=== PATIENT | male | born 1950 | race Caucasian/White ===

== ENCOUNTER 2021-09-23 14:55 | Inpatient (IN) | payer MEDICARE, OTHER ==
[~2021-09-23] VITALS: Ht 188 cm; Wt 95.8 kg
[~2021-09-23 14:55] MED LIST: ACET325T38 PO; ALPRAZolam 0.25 MG (XANAX) TAB PO PRN; ATOR20TA66 PO; BISACODYL 10 MG SUPP (DULCOLAX) PR PRN; CALCIUM CARBONATE 500 MG (TUMS) TAB.CHEW PO PRN; CLOP75TA28 PO; DOCUSATE SODIUM 100 MG (COLACE) CAP PO PRN; DOXY100T2 PO; ENOX40DI8 SQ; FLEET ENEMA ADULT 1 EA BTL PR PRN; FLUT9.9S NSEACH; HYDR-3729 PO; LACTULOSE SYRUP 10GM/15ML (ENULOSE) 30ML UDC PO PRN; LOPERAMIDE 2 MG (IMODIUM) TABLET PO PRN; LOSA1TAB20 PO; METO-333 PO; NF-NACL1GT PO; OMEG10006 PO; ONDANSETRON 4 MG (ZOFRAN) ORAL DISSOLVE TAB PO PRN; PANT40TA52 PO; PRIM50TA33 PO; UREA15PO PO; VICODIN 5-325 MG TAB PO; diphenhydrAMINE 25 MG TAB (BENADRYL) PO PRN; guaiFENesin/CODEINE (ROBITUSSIN AC) 10ML UDC PO PRN
--- NOTE | 2021-09-23 14:58 | Progress Note ---
AUTUMN THOMSON 09/23/21 1458: Progress Note Subjective CC: Acute encephalopathy due to viral meningitis HPI: Juan Sullivan is a 71 yo male with a history of CAD s/p stent, alcohol use disorder, HTN, essential tremor, chronic low back pain s/p lumbar fusion, who presents to inpatient rehabilitation for evaluation and management of debility secondary to acute viral encephalopathy. He has a recent history of staph bacteremia on the RLE, and was admitted to [facility] in [place]. He had tested positive for staph 2-3 weeks prior to admission on 09/01/21, with plans to treat with vancomycin and rifampin until ; he was subsequently discharged to a swing bed. However, within the week, he was readmitted due to progressive confusion. CT A/P revealed a 12 cm fluid collection in the lumbar spine concerning for abscess. Lumbar puncture on 09/08 demonstrated results consistent with viral meningitis. On 09/09/21, he was admitted to [facility] for altered mental status; CSF analysis was able to isolate West Nile Virus IgG and [place] Spotted fever IgG (serum was negative for WN virus). Neurological work- up demonstrated persistent maximo-lingual dyskinesias, choreiform movements, aphasia, and flexed posturing. Juan was started on doxycycline and rocephin. As well, there were concerns for alcohol withdrawal, as patient is stated to drink "5 shots of whiskey per week" and he had not consumed alcohol in over a week. In addition, Juan has had persistent hyponatremia (127 on 09/09/21) , which, given his present illness, is suspicious for SIADH. He was started on fluid restriction of 1.2 L/day. Today, Juan is alert and oriented to person and place; he demonstrates a pleasant affect and is cooperative. He denies any pain aside from in his feet. He had a bowel movement this morning, and states his appetite has been "horrible."His plans to visit him tomorrow (09/24/21). PMH: CAD HTN Alcohol use disorder Essential tremor Hyponatremia Chronic low back pain PSH: CABG with stent (2020) Lumbar spinal fusion (2017) Ganglioma removal (2016) ALL: NKDA MEDS: Home Meds Active Reported Ure-Na (Urea) 15 Gm Powd.pack 15 Gm PO DAILY Sodium Chloride 1 Gm Tab 2 Gm PO BID TAKES 2 (1GM) TABS Mysoline (Primidone) 50 Mg Tablet 50 Mg PO QID Pantoprazole Sodium 40 Mg Tablet.dr 40 Mg PO DAILY [facility]-3 Fish Oil 1,000 mg Sftg ([facility]-3/Dha/Epa/Fish Oil) 1 Each Capsule 1 Each PO BID Metoprolol Tartrate 25 Mg Tablet 25 Mg PO BID Flonase Allergy Relief (Fluticasone Propionate) 9.9 Ml [place].susp 1 [place] NSEACH DAILY Enoxaparin Sodium 40 Mg/0.4 Ml Syringe 40 Mg SQ DAILY Doxycycline Hyclate 100 Mg Tablet 100 Mg PO BID WITH MEALS COMPLETION DATE 10-03-2021 PER DISCHARGE ORDERS Clopidogrel (Clopidogrel Bisulfate) 75 Mg Tablet 75 Mg PO DAILY Atorvastatin Calcium 20 Mg Tablet 20 Mg PO DAILY Tylenol (Acetaminophen) 325 Mg Tablet 650 Mg PO Q6H PRN SH: Juan is , and 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 Has two children, Seth and Eun. ROS: Constitutional: Denies any fever, chills, or headache Cardiovascular: Denies any chest pain or palpitations Respiratory: Denies SOB Gastrointestinal: Denies N/V Skin: Multiple areas of mild to moderate skin irritation Objective: Vitals: Pending Labs: Pending PE: General: A&Ox2, cooperative, conversational, and pleasant. NAD. Neurological: Has some episodes of confusion. Intermittent episodes of aphasia--Juan appears to be frustrated when he can't find his words right away. Persistent abnormal mouth movement and tongue movement. Mild intermittent chorea noted during exam in bilateral upper and lower extremities, head, and neck, especially during moments of aphasia. Has flexed posturing of bilateral UE. Juan is unable to recall the exact details of his disposition, but is able to remember some details with prompting. Cardiovascular: Regular rate and rhythm, no murmurs rubs or gallops. Capillary refill is < 3 seconds. Respiratory: CTAB, no rales or rhonchi noted Gastrointestinal: Abdomen is soft, no rebound or guarding MSK: Bilateral upper extremity is held in a flexed posture, though will move freely with passive movement. No edema is present in the LE. Skin: Mild skin irritation on chest where telemetry was placed. Hands are d ry, with moderate skin peeling on the lee surface. There is some scrotal irritation, appears erythematous and dry. I did not note any significant LE rashes or ulcerations, which was discussed in a recent previous hospital stay. Assessment and Plan: 1. Viral encephalitis, with persistent maximo-lingual dyskinesias, choreiform movements, aphasia, and flexor posturing of bilateral UE Continue rocephin and doxycycline Monitor neurological status closely PT/OT/ST to evaluate potential and extent of rehabilitation necessary to attain PLOF within reason 2. Hyponatremia secondary to SIADH Limit fluids Monitor urine output 3. CAD 4. HTN Continue to monitor 5. Essential tremor Patient was previously on Primidone 6. Alcohol use disorder Thiamine supplementation 7. RLE cellulitis Has been improving Continue to monitor SUSAN MITCHELL DO 09/24/21 0521: Supervisory-Addendum Brief Verification & Attestation Participated in pt care: history, MDM, physical Personally performed: exam, history, MDM, supervision of care Care discussed with: Medical Student Procedures: n/a Results interpretation: Verified all documentation Verification and Attestation of Medical Student E/M Service A medical student performed and documented this service in my presence. I reviewed and verified all information documented by the medical student and made modifications to such information, when appropriate. I personally performed the physical exam and medical decision making. Susan Mitchell, Sep 24, 2021,05:21 AUTUMN THOMSON Sep 23, 2021 14:58 SUSAN MITCHELL DO Sep 24, 2021 05:21
--- NOTE | 2021-09-23 15:54 | Physical Therapy Evaluation ---
PT Evaluation-General Medical Diagnosis Admission Date Medical Diagnosis: Acute encephalopathy due to viral meningitis Onset Date: Sep 01, 2021 Therapy Diagnosis Therapy Diagnosis: impaired mobility, strength, endurance, balance Height/Weight Height (Feet): 6 Height (Inches): 2.00 Weight (Pounds): 235 Weight (Ounces): 0.0 Precautions Precautions/Isolations: Fall Prevention, Standard Precautions, Pressure Ulcer Referral Physician: Lois Grande DO Reason for Referral: Evaluation/Treatment Medical History Additional Medical History PMH: CAD HTN Alcohol use disorder Essential tremor Hyponatremia Chronic low back pain PSH: CABG with stent (2020) Lumbar spinal fusion (2017) Ganglioma removal (2016) Reviewed History: Yes Social History Current Living Status: Spouse Entry Into Home: Stairs With Railing PT Steps Into Home: 3 Prior Prior Level of Function SCALE: Activities may be completed with or without assistive devices. 9-Zukbxsddbp-smrmlmy completes the activity by him/herself with no assistance fr om a helper. 5-Set-up or Clean-up Assistance-helper sets up or cleans up; patient completes activity. [place] assists only prior to or following the activity. 4-Supervision or Touching Assistance-helper provides verbal cues and/or touching/steadying and/or contact guard assistance as patient completes activity. Assistance may be provided throughout the activity or intermittently. 3-Partial/Moderate Assistance-helper does LESS THAN HALF the effort. [place] lifts, holds or supports trunk or limbs, but provides less than half the effort. 2-Substantial/Maximal Assistance-helper does MORE THAN HALF the effort. [place] lifts or holds trunk or limbs and provides more than half the effort. 2-Tehddasrd-vduvgc does ALL the effort. Patient does none of the effort to complete the activity. Or, the assistance of 2 or more helpers is required for the patient to complete the activity. If activity was not attempted, code reason: 7-Patient Refused. 9-Not Applicable-not attempted and the patient did not perform the activity before the current illness, exacerbation or injury. 10-Not Attempted due to Environmental Limitations-(lack of equipment, weather restraints, etc.). 88-Not Attempted due to Medical Conditions or Safety Concerns. Bed Mobility: 6 Transfers (B,C,W/C): 6 Gait: 6 Stairs: 6 Indoor Mobility (Ambulation): Independent Stairs: Independent PT Evaluation-Current Subjective Patient in bed pre tx, agrees to PT, has no complaints of pain. Patient has some difficulty communicating and talking sometimes. Pt/Family Goals to be independent at home Objective Patient Orientation: Person, Place, Situation ROM/Strength ROM Lower Extremities WNL Strength Lower Extremities LLE (hip flexion 3-/5, knee flexion 4+/5, knee extension 4+/5, dorsiflexion 4+/5), RLE (hip flexion 3-/5, knee flexion 4+/5, knee extension 4+/5, dorsiflexion 4+/5) Sensory Hearing: Functional Sensation Right Lower Extremit: Intact Sensation Left Lower Extremity: Intact Transfers Roll Left & Right (QC): 3 Sit to Lying (QC): 3 Lying to Sitting/Side of Bed(Q: 3 Sit to Stand (QC): 3 Chair/Epl-qq-Mlapv Xfer(QC): 3 Toilet Transfer (QC): 3 Car Transfer (QC): 3 Patient performs rolling with min assist, supine <-> sit and transfers mod assist, car transfer mod assist. Patient is retropulsive with standing and abnormally extends his back, he has poor balance and coordination, very shaky but no knee buckling. Needs a lot of cues for positioning and safety. Gait Does the Patient Walk?: Yes Mode of Locomotion: Wheelchair Anticipated Mode of Locomotion: Walk Walk 10 feet (QC): 88 Walk 50 ft with 2 Turns(QC): 88 Walk 150 ft (QC): 88 Walking 10ft/uneven surface-QC: 88 Distance: 6'x3 Gait Assistive Device: Parallel Bars Comments/Gait Description Patient can ambulate 6' in the parallel bars with min assist to maintain balance, patient ambulates slowly and has uncoordinated steps, abnormally extends his back and is retropulsive. Wheelchair Training Does the Pt Use a Wheelchair?: Yes Distance: 150' Wheel 50 ft with 2 turns (QC): 3 Wheel 150 ft (QC): 3 Type of Wheelchair: Manual Stairs 1 Step (curb) (QC): 88 4 Steps (QC): 88 12 Steps (QC): 88 Balance Sitting Static: Fair Sitting Dynamic: Fair Standing Static: Poor Standing Dynamic: Poor Picking up an Object (QC): 88 Assessment/Needs Patient has impaired mobility, strength, endurance, balance. Patient in bed post tx with nurse call, phone, tray, all needs met, bed alarm on. Patient has poor safety awareness. He has some abnormal movements and poor coordination. Rehab Potential: Guarded PT Short Term Goals Short Term Goals Time Frame: Sep 30, 2021 Roll Left & Right: 4 Sit to lyin (Balaji) Lying to sitting on side of be: 3 (Balaji) Sit to stand: 3 (Mando) Chair/sgb-bo-xowsz transfer: 3 (Balaji) Walk 10 feet: 3 (mnA) PT Longterm Goals Longterm Goals PT Vice President Of Academic Affairs Goals Time Frame: Oct 14, 2021 Roll Left & Right (QC): 6 Sit to Lying (QC): 4 (SBA) Lying-Sitting on Side/Bed(QC): 4 (SBA) Sit to Stand (QC): 4 (CGA) Chair/May-mc-Bmvrn Xfer(QC): 4 (CGA) Toilet Transfer (QC): 4 (CGA) Car Transfer (QC): 3 (Balaji) Does the Patient Walk: Yes Walk 10 feet (QC): 4 (CGA) Walk 50ft with 2 Turns (QC): 4 (CGA) Walk 150 ft (QC): 4 (CGA) Walking 10ft on Uneven Surface: 3 (Balaji) 1 Step (curb) (QC): 3 (Balaji) 4 Steps (QC): 3 (Balaji) 12 Steps (QC): 88 Picking up an Object (QC): 3 (Balaji) Wheel 50 feet with 2 turns (QC: 6 Wheel 150 feet: 6 PT Plan Problem List Problem List: Activity Tolerance, Functional Strength, Safety, Balance, Gait, Transfer, Bed Mobility, ROM Treatment/Plan Treatment Plan: Continue Plan of Care Treatment Plan: Bed Mobility, Education, Functional Activity Johnathan, Functional Strength, Group Therapy, Gait, Safety, Therapeutic Exercise, Transfers Treatment Duration: Oct 14, 2021 Frequency: At least 5 of 7 days/Wk (IRF) Estimated Hrs Per Day: 1.5 hours per day Patient and/or Family Agrees t: Yes Safety Risks/Education Patient Education: Gait Training, Transfer Techniques, Correct Positioning, W/C Management, Safety Issues Teaching Recipient: Patient Teaching Methods: Demonstration, Discussion Response to Teaching: Reinforcement Needed Discharge Recommendations Plan Patient will perform bed mobility and transfer training, balance and endurance training, functional strengthening, stair training, gait training, and education, to improve functional mobility and independence at home. Therapy Discharge Recommendati: 24 Hour Supervision Time/GCodes Time In: 1455 Time Out: 1535 Total Billed Treatment Time: 40 Total Billed Treatment 1 visit DESTINEE 15' FA 25' SANFORD ALEJANDRE PT Sep 23, 2021 15:54
--- NOTE | 2021-09-23 16:57 | PM&R Post Admission Assessment ---
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 Apparently he has a recent history of staph bacteremia from cellulitis of the right lower extremity and remains on antibiotics for that. At this current time it is hard for him to stay on topic when conversing and confusion is noted. Hyponatremia will be monitored closely. Previously was independent without the use of assistive devices. He will require aggressive treatment with PT OT and speech therapy. H&P from medical student AUTMUN THOMSON CC: Acute encephalopathy due to viral meningitis HPI: Juan Sullivan is a 71 yo male with a history of CAD s/p stent, alcohol use disorder, HTN, essential tremor, chronic low back pain s/p lumbar fusion, who presents to inpatient rehabilitation for evaluation and management of debility secondary to acute viral encephalopathy. He has a recent history of staph bacteremia on the RLE, and was admitted to [facility] in [place]. He had tested positive for staph 2-3 weeks prior to admission on 09/01/21, with plans to treat with vancomycin and rifampin until ; he was subsequently discharged to a swing bed. However, within the week, he was readmitted due to progressive confusion. CT A/P revealed a 12 cm fluid collection in the lumbar spine concerning for abscess. Lumbar puncture on 09/08 demonstrated results consistent with viral meningitis. On 09/09/21, he was admitted to [facility] for altered mental status; CSF analysis was able to isolate West Nile Virus IgG and [place] Spotted fever IgG (serum was negative for WN virus). Neurological work- up demonstrated persistent maximo-lingual dyskinesias, choreiform movements, aphas ia, and flexed posturing. Juan was started on doxycycline and rocephin. As well, there were concerns for alcohol withdrawal, as patient is stated to drink "5 shots of whiskey per week" and he had not consumed alcohol in over a week. In addition, Juan has had persistent hyponatremia (127 on 09/09/21) , which, given his present illness, is suspicious for SIADH. He was started on fluid restriction of 1.2 L/day. Today, Juan is alert and oriented to person and place; he demonstrates a pleasant affect and is cooperative. He denies any pain aside from in his feet. He had a bowel movement this morning, and states his appetite has been "horrible."His plans to visit him tomorrow (09/24/21). PMH: CAD HTN Alcohol use disorder Essential tremor Hyponatremia Chronic low back pain PSH: CABG with stent (2020) Lumbar spinal fusion (2018) Ganglioma removal (2016) ALL: NKDA MEDS: Home Meds Active Reported Ure-Na (Urea) 15 Gm Powd.pack 15 Gm PO DAILY Sodium Chloride 1 Gm Tab 2 Gm PO BID TAKES 2 (1GM) TABS Mysoline (Primidone) 50 Mg Tablet 50 Mg PO QID Pantoprazole Sodium 40 Mg Tablet.dr 40 Mg PO DAILY [place]-3 Fish Oil 1,000 mg Sftg ([place]-3/Dha/Epa/Fish Oil) 1 Each Capsule 1 Each PO BID Metoprolol Tartrate 25 Mg Tablet 25 Mg PO BID Flonase Allergy Relief (Fluticasone Propionate) 9.9 Ml Mooers.susp 1 Mooers NSEACH DAILY Enoxaparin Sodium 40 Mg/0.4 Ml Syringe 40 Mg SQ DAILY Doxycycline Hyclate 100 Mg Tablet 100 Mg PO BID WITH MEALS COMPLETION DATE 10-03-2021 PER DISCHARGE ORDERS Clopidogrel (Clopidogrel Bisulfate) 75 Mg Tablet 75 Mg PO DAILY Atorvastatin Calcium 20 Mg Tablet 20 Mg PO DAILY Tylenol (Acetaminophen) 325 Mg Tablet 650 Mg PO Q6H PRN SH: Juan is , and was working as a 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 Has two children, Seth and Eun. ROS: Constitutional: Denies any fever, chills, or headache Cardiovascular: Denies any chest pain or palpitations Respiratory: Denies SOB Gastrointestinal: Denies N/V Skin: Multiple areas of mild to moderate skin irritation Objective: Vitals: Pending Labs: Pending PE: General: A&Ox2, cooperative, conversational, and pleasant. NAD. Neurological: Has some episodes of confusion. Intermittent episodes of aphasia--Juan appears to be frustrated when he can't find his words right away. Persistent abnormal mouth movement and tongue movement. Mild intermittent chorea noted during exam in bilateral upper and lower extremities, head, and neck, especially during moments of aphasia. Has flexed posturing of bilateral UE. Juan is unable to recall the exact details of his disposition, but is able to remember some details with prompting. Cardiovascular: Regular rate and rhythm, no murmurs rubs or gallops. Capillary refill is < 3 seconds. Respiratory: CTAB, no rales or rhonchi noted Gastrointestinal: Abdomen is soft, no rebound or guarding MSK: Bilateral upper extremity is held in a flexed posture, though will move freely with passive movement. No edema is present in the LE. Skin: Mild skin irritation on chest where telemetry was placed. Hands are dry, with moderate skin peeling on the lee surface. There is some scrotal irritation, appears erythematous and dry. I did not note any significant LE rashes or ulcerations, which was discussed in a recent previous hospital stay. Assessment and Plan: 1. Viral encephalitis, with persistent maximo-lingual dyskinesias, choreiform movements, aphasia, and flexor posturing of bilateral UE Continue rocephin and doxycycline Monitor neurological status closely PT/OT/ST to evaluate potential and extent of rehabilitation necessary to attain PLOF within reason 2. Hyponatremia secondary to SIADH Limit fluids Monitor urine output 3. CAD 4. HTN Continue to monitor 5. Essential tremor Patient was previously on Primidone 6. Alcohol use disorder Thiamine supplementation 7. RLE cellulitis Has been improving Continue to monitor Past Stohbfg-Frrzmi-Nrpknq Hx Past Med/Social Hx: Reviewed Nursing Past Med/Soc Hx, Reviewed and Corrections made Patient Social History Marrital Status: Employed/Student: employed Alcohol Use: Regular Use Alcohol Beverage of Choice: Freshplum Smoking Status: Former Smoker Immunizations Up To Date Date of Influenza Vaccine: Sep 21, 2021 Past Medical History Surgeries: Coronary Stent Cardiac: Coronary Artery Disease, High Cholesterol, Hypertension Reproductive: No Sexually Transmitted Disease: No HIV/AIDS: No Musculoskeletal: Chronic Back Pain Loss of Vision: Denies Hearing Impairment: Denies Adverse Reaction to Blood Boo: No Prior Level of Function Bed Mobility: 6 Transfers: 6 Gait: 6 Stairs: 6 Indoor Mobility (Ambulation): Independent Stairs: Independent Current Level of Fuctioning Roll Left to Right: 3 Sit to Lyin Lying to Sitting/Side of Bed: 3 Sit to Stand: 3 Chair/Ynx-ax-Dfdes Xfer: 3 Car Transfer: 3 Does the Patient Walk: Yes Mode of Locomotion: Wheelchair Anticipated Mode of Locomotion: Walk Walk 10 feet: 88 Walk 50 ft with 2 Turns: 88 Walk 150 ft: 88 Walking 10ft on uneven surface: 88 Gait Assistive Device: Parallel Bars Does the Pt Use a Wheelchair: Yes Wheelchair Distance: 150' Wheel 50 ft with 2 turns: 3 Wheel 150 ft: 3 Type of Wheelchair: Manual 1 Step (curb): 88 4 Steps: 88 12 Steps: 88 Picking up an Object: 88 PM&R Allergy/Meds/Data Review Allergies Coded Allergies: No Known Drug Allergies (Unverified , 06/24/15) Home Medications Scheduled Atorvastatin Calcium (Atorvastatin Calcium), 20 MG PO DAILY, (Reported) Clopidogrel Bisulfate (Clopidogrel), 75 MG PO DAILY, (Reported) Doxycycline Hyclate (Doxycycline Hyclate), 100 MG PO BID WITH MEALS, (Reported) Enoxaparin Sodium (Enoxaparin Sodium), 40 MG SQ DAILY, (Reported) Fluticasone Propionate (Flonase Allergy Relief), 1 SPRAY NSEACH DAILY, (Reported) Metoprolol Tartrate (Metoprolol Tartrate), 25 MG PO BID, (Reported) [place]-3/Dha/Epa/Fish Oil ([place]-3 Fish Oil 1,000 mg Sftg), 1 EACH PO BID, (Reported) Pantoprazole Sodium (Pantoprazole Sodium), 40 MG PO DAILY, (Reported) Primidone (Mysoline), 50 MG PO QID, (Reported) Sodium Chloride (Sodium Chloride), 2 GM PO BID, (Reported) Urea (Ure-Na), 15 GM PO DAILY, (Reported) Scheduled PRN Acetaminophen (Tylenol), 650 MG PO Q6H PRN for PAIN-MILD (1-4), (Reported) Discontinued Medications Hydrocodone/Acetaminophen (Lortab 5-325 mg Tablet), 1-2 EACH PO Q4H Discontinued Reason: No Longer Taking Losartan/Hydrochlorothiazide (Losartan-Hctz 50-12.5 Mg Tab), 1 EACH PO DAILY, (Reported) Discontinued Reason: No Longer Taking Current Medications Current Medications Reviewed Review of Systems Constitutional: see HPI, malaise, weakness EENTM: no symptoms reported Respiratory: no symptoms reported Cardiovascular: no symptoms reported Gastrointestinal: no symptoms reported Genitourinary: no symptoms reported Musculoskeletal: back pain, joint pain Skin: see HPI Psychiatric/Neurological: Anxiety, Depressed, Emotional Problems, Numbness, Weakness, Other (Confusion) Physical Exam Physical Exam Vital Signs Capillary Refill : Height, Weight, BMI Height: 6'2.00" Weight: 235lbs. 0.0oz. 106.356390al; 26.36 BMI Method: General Appearance: No Apparent Distress, WD/WN, Chronically ill Eyes: Bilateral Eye Normal Inspection, Bilateral Eye PERRL HEENT: PERRL/EOMI, Normal ENT Inspection, Pharynx Normal Neck: Full Range of Motion, Normal Inspection, Non Tender, Supple, Carotid Bruit Respiratory: Chest Non Tender, Lungs Clear, Normal Breath Sounds, No Accessory Muscle Use, No Respiratory Distress Cardiovascular: Regular Rate, Rhythm, No Edema, No Gallop, No JVD, No Murmur, Normal Peripheral Pulses Gastrointestinal: Normal Bowel Sounds, No Organomegaly, No Pulsatile Mass, Non Tender, Soft Back: Normal Inspection, No CVA Tenderness, No Vertebral Tenderness Extremity: Normal Capillary Refill, Normal Inspection, Normal Range of Motion, Non Tender, No Calf Tenderness, No Pedal Edema Neurologic/Psychiatric: Alert, No Motor/Sensory Deficits, Abnormal Gait, Depressed Affect, Motor Weakness, Sensory Deficit Skin: Normal Color, Warm/Dry Lymphatic: No Adenopathy PM&R Medical Assessment & Plan REHAB/MEDICAL ASSESSMENT AND PLAN: REHAB IMPAIRMENT GROUP: Encephalopathy from encephalitis from [place] spotted fever and West Nile virus ETIOLOGIC DIAGNOSIS: Encephalopathy from encephalitis from [place] spotted fever and West Nile virus The comorbidities that impact the patients function and/or functional outcome by: Confusion, advanced age, hyponatremia, CAD REHAB PLAN: The patient is being admitted to our comprehensive inpatient rehabilitation facility and can tolerate the intensity of service consisting of at least: 180 minutes of therapy a day, 5 out of 7 days a week Rehab treatment will consist of: PT and OT will focus on recovering with use of assistive devices and ambulatory support speech therapy will help with cognition The patient/family has a good understanding of our discharge process and will benefit from an interdisciplinary inpatient rehabilitation program. The patient has potential to make improvement and is in need of at least two of the following multidisciplinary therapies including but not limited to physical, occupational, speech, and prosthetics and orthotics. Additionally the patient will need services from respiratory, nutritional services, wound care, psychology, etc. (Customize this to each patient). Given the patients complex condition and risk of further medical complications, rehabilitation services cannot be safely or effectively provided at a lower level of care such as a usp facility. BARRIERS TO DISCHARGE: Confusion ESTIMATED LOS: 14 days DISPOSITION: Home RELEVANT CHANGES SINCE PREADMISSION SCREENING: I have compared the patients medical and functional status at the time of the preadmission screening and there are: No changes PROGNOSIS: Guarded REHABILITATION GOALS: 1. PT and OT will focus on recovering with use of assistive devices and ambulatory support speech therapy will help with cognition All the above goals were reviewed with the patient and he/she is in agreement. By signing this document, I acknowledge that I have personally performed a full physical examination on this patient within 24 hours of admission to this inpatient rehabilitation facility and have determined the patient to be able to tolerate the above course of treatment at an intensive level for a reasonable period of time. I will be completing a detailed individualized Plan of Care for this patient by day #4 of the patients stay based upon the Preadmission Screen, the Post-Admission Evaluation, and the therapy evaluations. Admission Dx/Comorbidities: (1) Encephalopathy ICD Codes: G93.40 - Encephalopathy, unspecified Assessment/Plan Assessment and Plan Assess & Plan/Chief Complaint Assessment: 1. 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 CAD 4. HTN 5. Essential tremor 6. Alcohol use disorder 7. RLE cellulitis Plan: Fluid restriction Sodium supplementation Supportive care Inpatient rehab protocol SUSAN MITCHELL DO Sep 23, 2021 16:57
[2021-09-23] MEDS: DOXYCYCLINE 100 MG (VIBRAMYCIN) TABLET PO SCH (17:56)
[2021-09-23] MEDS: PRIMIDONE 50 MG TAB (MYSOLINE) PO SCH ×2 (17:56→20:51)
[2021-09-23 19:43] VITALS: BP 111/63
[2021-09-23] MEDS: SODIUM CHLORIDE 1 GM TABLET PO SCH (20:50)
[2021-09-23] MEDS: meTOprolol TARTRATE 25 MG (LOPRESSOR) TABLET PO SCH (20:51)
[2021-09-23] MEDS: OMEGA 3 (FISH OIL) 1000 MG CAP PO SCH (20:51)
[2021-09-23] MEDS: MELATONIN 3 MG TABLET PO PRN (21:03)
[2021-09-23] MEDS: polyethylene glycoL POWDER 17 GM (MIRALAX) PACK PO SCH (21:15)
[2021-09-23] MEDS: DOCUSATE SODIUM 100 MG (COLACE) CAP PO SCH (21:15)
[2021-09-23] MEDS: SENNA W/DOCUSATE (SENOKOT S) TABLET PO SCH (21:15)
[2021-09-23] MEDS ORDERED: ZIPRASIDONE 20 MG INJ (GEODON) VIAL IM PRN (21:30)
[2021-09-23] MEDS ORDERED: WATER (STERILE) FOR INJ 10 ML BTL INJ SCH (21:30)
[2021-09-24 06:06] LABS: BASOPHILS % (AUTO) 1 % (0-10); EOSINOPHILS # (AUTO) 0.3 10^3/uL (0.0-0.3); EOSINOPHILS % (AUTO) 4 % (0-10); HEMATOCRIT 33 % (40-54); HEMOGLOBIN 10.6 g/dL (13.3-17.7); LYMPHOCYTES # (AUTO) 2.6 10^3/uL (1.0-4.0); LYMPHOCYTES % (AUTO) 38 % (12-44); MEAN CORPUSCULAR HEMOGLOBIN 30 pg (25-34); MEAN CORPUSCULAR HGB CONC 32 g/dL (32-36); MEAN CORPUSCULAR VOLUME 95 fL (80-99); MEAN PLATELET VOLUME 9.1 fL (9.0-12.2); MONOCYTES # (AUTO) 0.8 10^3/uL (0.0-1.0); MONOCYTES % (AUTO) 12 % (0-12); NEUTROPHILS # (AUTO) 3.1 10^3/uL (1.8-7.8); NEUTROPHILS % (AUTO) 45 % (42-75); PLATELET COUNT 358 10^3/uL (130-400); WHITE BLOOD COUNT 6.9 10^3/uL (4.3-11.0)
[2021-09-24 06:21] LABS: TOTAL PROTEIN 7.6 GM/DL (6.4-8.2)
[2021-09-24 06:23] LABS: BILIRUBIN,TOTAL 0.3 MG/DL (0.1-1.0)
[2021-09-24 06:24] LABS: CREATININE SERUM 1.1 MG/DL (0.60-1.30)
[2021-09-24 08:00] VITALS: BP 140/73
[2021-09-24] MEDS: SENNA W/DOCUSATE (SENOKOT S) TABLET PO SCH ×2 (08:00→19:12)
[2021-09-24] MEDS: polyethylene glycoL POWDER 17 GM (MIRALAX) PACK PO SCH ×2 (08:00→19:11)
[2021-09-24] MEDS: DOCUSATE SODIUM 100 MG (COLACE) CAP PO SCH ×2 (08:00→19:11)
[2021-09-24] MEDS: OMEGA 3 (FISH OIL) 1000 MG CAP PO SCH ×2 (08:11→20:10)
[2021-09-24] MEDS: PRIMIDONE 50 MG TAB (MYSOLINE) PO SCH ×4 (08:11→20:10)
[2021-09-24] MEDS: CLOPIDOGREL 75 MG (PLAVIX) TABLET PO SCH (08:11)
[2021-09-24] MEDS: ENOXAPARIN 40 MG/0.4 ML (LOVENOX) SYR SQ SCH (08:12)
[2021-09-24] MEDS: meTOprolol TARTRATE 25 MG (LOPRESSOR) TABLET PO SCH ×2 (08:12→20:10)
[2021-09-24] MEDS: DOXYCYCLINE 100 MG (VIBRAMYCIN) TABLET PO SCH ×2 (08:12→17:36)
[2021-09-24] MEDS: PANTOPRAZOLE 40 MG (PROTONIX) TAB PO SCH (08:12)
[2021-09-24] MEDS: SODIUM CHLORIDE 1 GM TABLET PO SCH (08:14)
[2021-09-24] MEDS: FLUTICASONE NASAL SPRAY (FLONASE) 16 GM BTL NS SCH (08:14)
[2021-09-24] MEDS ORDERED: UREA 15 GM POWDER (URE-NA) PO SCH ×2 (09:00)
--- NOTE | 2021-09-24 09:28 | Occupational Therapy Eval ---
OT Evaluation-General/PLF Medical Diagnosis Admission Date Sep 23, 2021 at 14:55 Medical Diagnosis: Acute encephalopathy due to viral meningitis Onset Date: Sep 01, 2021 Therapy Diagnosis Therapy Diagnosis: decreased ADL Status Height/Weight Height (Feet): 6 Height (Inches): 2.00 Weight (Pounds): 235 Weight (Ounces): 0.0 Precautions Precautions/Isolations: Fall Prevention, Standard Precautions, Pressure Ulcer Referral Physician: Lois Grande DO Referral Reason: Evaluation/Treatment Medical History Additional Medical History CAD, essential tremor, HTN, CABG with stent (05/2021), spinal fusion, ganglioma removal Current History Admit to [facility] 09/09/21 with AMS. LP positive for [place] Spotted Fever IgG, West Nile IgG. Being treated for suspected viral meningitis/encep halitis Social History Current Living Status: Spouse Entry Into Home: Stairs With Railing Steps Into Home: 3 ADL-Prior Level of Function SCALE: Activities may be completed with or without assistive devices. 2-Mjjryjmzbc-nmahfcf completes the activity by him/herself with no assistance from a helper. 5-Set-up or Clean-up Assistance-helper sets up or cleans up; patient completes activity. [place] assists only prior to or following the activity. 4-Supervision or Touching Assistance-helper provides verbal cues and/or touc reynold/steadying and/or contact guard assistance as patient completes activity. Assistance may be provided throughout the activity or intermittently. 3-Partial/Moderate Assistance-helper does LESS THAN HALF the effort. [place] lifts, holds or supports trunk or limbs, but provides less than half the effort. 2-Substantial/Maximal Assistance-helper does MORE THAN HALF the effort. [place] lifts or holds trunk or limbs and provides more than half the effort. 8-Jorajzoig-ssoiye does ALL the effort. Patient does none of the effort to complete the activity. Or, the assistance of 2 or more helpers is required for the patient to complete the activity. If activity was not attempted, code reason: 7-Patient Refused. 9-Not Applicable-not attempted and the patient did not perform the activity before the current illness, exacerbation or injury. 10-Not Attempted due to Environmental Limitations-(lack of equipment, weather restraints, etc.). 88-Not Attempted due to Medical Conditions or Safety Concerns. ADL PLOF Comments Pt reports IND with all ADLs and functional mobility at PLOF, no AD/AE. 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 Pt has a walk in shower, he believes there is Self Care: Independent Functional Cognition: Independent DME/Equipment: Shower OT Current Status Subjective Pt in bed, agreeable to OT evaluation, then OT/PT cotreat. Pt does not verbalize any pain. Pt had slight difficulty with answering questions at times, when OT asked about sensation changes, he was adamant about the pain he has had in his R shoulder, unable to answer questions about sensation changes. Mental Status/Objective Patient Orientation: Person, Place, Situation Current Glasses/Contacts: Yes Hearing Aids: No Dentures/Partials: No Hand Dominance: Right Upper Extremity ROM WFL, BUE shoulder flexion to approx 160 degrees, pt does not report pain with movements. When pt is asked about arm function or instructed to use his arms, he complains of R shoulder pain. Upper Extremity Sensation Pt unable to answer assessment questions about changes in sensation. Instead focused on R shoulder pain and needing to have his shoulder replaced. Upper Extremity Strength grossly 3+/5 ADL-Treatment Eating (QC): 5 (based on clincial judgment and pt report.) Oral Hygiene (QC): 4 (SBA, pt required verbal cues to adhere to liquid restriction, but he did not follow instructions. Pt able to brush teeth without physical assistance.) Shower/Bathe Self (QC): 2 (Pt only washed periarea and buttocks, requiring assistance with drying buttocks. Pt required max verbal cues for sequencing, he continued to wash hands but did not initiate washing any other parts of body. Assistance required to wash BUEs, chest/abdomen, and LEs.) Upper Body Dressing (QC): 4 (supervision with pulley maintainer shirt.) Lower Body Dressing (QC): 3 (Min A standing balance for pant hike. Pt able to thread LEs and perform pant hike with max verbal cues and increased time.) On/Off Footwear (QC): 3 (Mod A, pt able to doff socks, assistance provided to don BLE gripper socks) Toileting Hygiene (QC): 3 (Min A standing balance, pt able to perform clothing management, assistance with hygiene.) Other Treatments [id number] OT eval. Pt laying in bed, OT educated pt on purpose and benefit of OT, he provided information about PLOF and home set up to his ability, and pa rticipated in UE Screen. Pt transferred supine to sit EOB, SBA. Then sit to stand transfer with mod A, mod A transfer to w/c. Pt slightly retropulsive in stand at times. Pt taken into shower, completed SPT to SC using GBs, min A. [id number] OT/PT cotreat due to skill of 2 clinicians required which a technical services coordinator could not perform in order to coordinate UE/LEs, decrease fall risk, and due to pt's limitations in standing balance, transfers/mobility, problem solving, sequencing, and safety awareness. OT focused on UE placement, cues for sequencing and safety and ADLs, PT focused on LE placement, gross overall movements, and transfers/mobility. Pt completed shower, dressing, and ADLs tasks in the bathroom, refer to QC scores above. He then transferred to recliner. Sit to stand transfer min A, CGA once standing at FWW. [id number] OT tx. Pt completed oral care seated at recliner and hair brushing. With hair brushing, pt able to complete task using BUEs, but complained of R shoulder pain with task. Pt cued to spit out water due to liquid restriction, pt states he didn't want to and proceeded to swallow the water. OT removed remainder of water given to pt to rinse his mouth. Pt asked if he did something wrong, OT again educated pt on his liquid restriction and informed him of instructions not to drink the water. Post tx, pt in recliner, call light in reach and all needs met. Chair alarm activated. Education OT Patient Education: Correct positioning, Energy conservation, Modified ADL techniques, Progress toward Goal/Update tx plan, Purpose of tx/functional activities, Rehab process, Safety issues, Transfer techniques Teaching Recipient: Patient Teaching Methods: Discussion Response to Teaching: Reinforcement Needed OT Short Term Goals Short Term Goals Time Frame: Oct 07, 2021 Oral hygiene: 5 Shower/bathe self: 4 Lower body dressin OT Importer Exporter Goals [facility] Goals Time Frame: Oct 16, 2021 Eating (QC): 6 Oral Hygiene (QC): 6 Toileting Hygiene (QC): 6 Shower/Bathe Self (QC): 4 Upper Body Dressing (QC): 5 Lower Body Dressing (QC): 4 On/Off Footwear (QC): 4 Additional Goals: 1-Demonstrate ADL Tasks, 2-Verbalize Understanding, 3- ImproveStrength/Johnathan 1=Demonstrate adherence to instructed precautions during ADL tasks. 2=Patient will verbalize/demonstrate understanding of assistive devices/modifications for ADL. 3=Patient will improve strength/tolerance for activity to enable patient to perform ADL's. OT Education/Plan Problem List/Assessment Assessment: Decreased Activ Tolerance, Decreased Safety Aware, Decreased UE Strength, Impaired Cognition, Impaired Funct Balance, Impaired I ADL's, Impaired Self-Care Skills, Restricted Funct UE ROM Discharge Recommendations Plan/Recommendations: Continue POC Treatment Plan/Plan of Care Patient would benefit from OT for education, treatment and training to promote independence in ADL's, mobility, safety and/or upper extremity function for ADL's. Plan of Care: ADL Retraining, Functional Mobility, Group Exercise/Act as Ind, UE Funct Exercise/Act Treatment Duration: Oct 16, 2021 Frequency: At least 5 of 7 days/Wk (IRF) Estimated Hrs Per Day: 1.5 hours per day Rehab Potential: Guarded Time/GCodes Start Time: 08:45 Stop Time: 10:00 Total Time Billed (hr/min): 75 Billed Treatment Time OT bear [id number], [id number] OT/PT magaly [id number] OT tx. 1, EVM (15'), ADL 4 (60') LIZANDRO HAM OT Sep 24, 2021 09:28
--- NOTE | 2021-09-24 09:52 | Physical Therapy Daily Note ---
PT Daily Note-Current Subjective Pt in shower working w/OT upon arrival. Pt agrees to short co-treat w/PT & OT. Mental Status Patient Orientation: Person, Confused Transfers SCALE: Activities may be completed with or without assistive devices. 3-Xnolkxokos-jtncdwk completes the activity by him/herself with no assistance from a helper. 5-Set-up or Clean-up Assistance-helper sets up or cleans up; patient completes activity. [place] assists only prior to or following the activity. 4-Supervision or Touching Assistance-helper provides verbal cues and/or touching/steadying and/or contact guard assistance as patient completes activity. Assistance may be provided throughout the activity or intermittently. 3-Partial/Moderate Assistance-helper does LESS THAN HALF the effort. [place] lifts, holds or supports trunk or limbs, but provides less than half the effort. 2-Substantial/Maximal Assistance-helper does MORE THAN HALF the effort. [place] lifts or holds trunk or limbs and provides more than half the effort. 9-Moveluyxq-snlqpj does ALL the effort. Patient does none of the effort to complete the activity. Or, the assistance of 2 or more helpers is required for the patient to complete the activity. If activity was not attempted, code reason: 7-Patient Refused. 9-Not Applicable-not attempted and the patient did not perform the activity before the current illness, exacerbation or injury. 10-Not Attempted due to Environmental Limitations-(lack of equipment, weather restraints, etc.). 88-Not Attempted due to Medical Conditions or Safety Concerns. Sit to Stand (QC): 3 Weight Bearing Full Weight Bearing Full Weight Bearing Treatments [id number] OT/PT cotreat due to skill of 2 clinicians required which a vision rehabilitation therapist could not perform in order to coordinate UE/LEs, decrease fall risk, and due to pt's limitations in standing balance, transfers/mobility, problem solving, sequencing, and safety awareness. OT focused on UE placement, cues for sequencing and safety and ADLs, PT focused on LE placement, gross overall movements, and transfers/mobility. Pt completed shower, dressing, and ADLs tasks in the bathroom. He then transferred to recliner Min A with VC for sequencing and safety. Sit to stand transfer min A, CGA once standing at FWW. Pt resting in recliner & PT departs tx as OT continues. Assessment Current Status: Poor Progress Pt is confused and needs constant VC for safety and sequencing of tasks. Pt fatigues easily and reports needing RB. PT Short Term Goals Short Term Goals Time Frame: Sep 30, 2021 Roll Left & Right: 4 Sit to lyin (Balaji) Lying to sitting on side of be: 3 (Balaji) Sit to stand: 3 (Mando) Chair/tby-lu-mpgnb transfer: 3 (Balaji) Walk 10 feet: 3 (mnA) PT Cordwainer Goals Cordwainer Goals PT Cordwainer Goals Time Frame: Oct 14, 2021 Roll Left & Right (QC): 6 Sit to Lying (QC): 4 (SBA) Lying-Sitting on Side/Bed(QC): 4 (SBA) Sit to Stand (QC): 4 (CGA) Chair/Frn-ei-Pvjhc Xfer(QC): 4 (CGA) Toilet Transfer (QC): 4 (CGA) Car Transfer (QC): 3 (Balaji) Does the Patient Walk: Yes Walk 10 feet (QC): 4 (CGA) Walk 50ft with 2 Turns (QC): 4 (CGA) Walk 150 ft (QC): 4 (CGA) Walking 10ft on Uneven Surface: 3 (Balaji) 1 Step (curb) (QC): 3 (Balaji) 4 Steps (QC): 3 (Balaji) 12 Steps (QC): 88 Picking up an Object (QC): 3 (Balaji) Wheel 50 feet with 2 turns (QC: 6 Wheel 150 feet: 6 PT Plan Problem List Problem List: Activity Tolerance, Functional Strength, Safety, Balance, Transfer Treatment/Plan Treatment Plan: Continue Plan of Care Treatment Plan: Bed Mobility, Education, Functional Activity Johnathan, Functional Strength, Group Therapy, Gait, Safety, Therapeutic Exercise, Transfers Treatment Duration: Oct 14, 2021 Frequency: At least 5 of 7 days/Wk (IRF) Estimated Hrs Per Day: 1.5 hours per day Patient and/or Family Agrees t: Yes Safety Risks/Education Patient Education: Transfer Techniques, Correct Positioning, Safety Issues Teaching Recipient: Patient Teaching Methods: Discussion Response to Teaching: Reinforcement Needed Time/GCodes Time In: 900 Time Out: 945 Total Billed Treatment Time: 45 Total Billed Treatment 1, FA x3 (45m) DAVIDE HAWLEY INSULATION BATTING MACHINE OPERATOR Sep 24, 2021 09:51
--- NOTE | 2021-09-24 10:10 | PM&R Progress Note ---
Subjective HPI/CC On Admission Date Seen by Provider: Sep 24, 2021 Time Seen by Provider: 10:15 Subjective/Events-last exam 09/24/2021: Patient doing pretty well Bowels moved Sodium 138 so we will hold sodium chloride tablets and urea Fluid restriction will be increased to 1800 Bilateral foot pain reported bit unreliable details when he describes it Check meds and labs Review of Systems General: Fatigue, Malaise Neurological: Confusion Objective Exam Vital Signs Vital Signs Date Time Temp Pulse Resp B/P (MAP) Pulse Ox O2 Delivery O2 Flow Rate FiO2 09/24/21 20:20 Room Air 09/24/21 19:28 36.8 92 16 136/63 (87) 97 Capillary Refill : General Appearance: No Apparent Distress, WD/WN, Chronically ill HEENT: PERRL/EOMI, Normal ENT Inspection, Pharynx Normal Neck: Full Range of Motion, Normal Inspection, Non Tender, Supple, Carotid Bruit Respiratory: Chest Non Tender, Lungs Clear, Normal Breath Sounds, No Accessory Muscle Use, No Respiratory Distress Cardiovascular: Regular Rate, Rhythm, No Edema, No Gallop, No JVD, No Murmur, Normal Peripheral Pulses Gastrointestinal: Normal Bowel Sounds, No Organomegaly, No Pulsatile Mass, Non Tender, Soft Back: Normal Inspection, No CVA Tenderness, No Vertebral Tenderness Extremity: Normal Capillary Refill, Normal Inspection, Normal Range of Motion, Non Tender, No Calf Tenderness, No Pedal Edema Neurologic/Psychiatric: Alert, No Motor/Sensory Deficits, Abnormal Gait, Depressed Affect, Motor Weakness, Sensory Deficit Skin: Normal Color, Warm/Dry Lymphatic: No Adenopathy Results/Procedures Lab Patient resulted labs reviewed. FIM Transfers Therapy Code Descriptions/Definitions Functional Pace Measure: 0=Not Assessed/NA 4=Minimal Assistance 1=Total Assistance 5=Supervision or Setup 2=Maximal Assistance 6=Modified Pace 3=Moderate Assistance 7=Complete IndependenceSCALE: Activities may be completed with or without assistive devices. 8-Rjfdmykejh-cpxnfis completes the activity by him/herself with no assistance from a helper. 5-Set-up or Clean-up Assistance-helper sets up or cleans up; patient completes activity. [place] assists only prior to or following the activity. 4-Supervision or Touching Assistance-helper provides verbal cues and/or touching/steadying and/or contact guard assistance as patient completes activity. Assistance may be provided throughout the activity or intermittently. 3-Partial/Moderate Assistance-helper does LESS THAN HALF the effort. [place] lifts, holds or supports trunk or limbs, but provides less than half the effort. 2-Substantial/Maximal Assistance-helper does MORE THAN HALF the effort. [place] lifts or holds trunk or limbs and provides more than half the effort. 9-Uzcjohwtv-gkoijh does ALL the effort. Patient does none of the effort to complete the activity. Or, the assistance of 2 or more helpers is required for the patient to complete the activity. If activity was not attempted, code reason: 7-Patient Refused. 9-Not Applicable-not attempted and the patient did not perform the activity before the current illness, exacerbation or injury. 10-Not Attempted due to Environmental Limitations-(lack of equipment, weather restraints, etc.). 88-Not Attempted due to Medical Conditions or Safety Concerns. Roll Left to Right (QC): 3 Sit to Lying (QC): 3 Sit to Stand (QC): 3 Chair/Qog-ds-Wqlwf Xfer(QC): 3 Car Transfer (QC): 3 Gait Training Does the Patient Walk?: Yes Walk 10 feet (QC): 88 Walk 50 ft with 2 Turns(QC): 88 Walk 150 ft (QC): 88 Walking 10ft/uneven surface-QC: 88 Gait Assistive Device: Parallel Bars Wheelchair Training Does the Pt Use a Wheelchair?: Yes Distance: 150' Wheel 50 ft with 2 turns (QC): 3 Wheel 150 ft (QC): 3 Type of Wheelchair: Manual Stair Training 1 Step (curb) (QC): 88 4 Steps (QC): 88 12 Steps (QC): 88 Balance Picking up an Object (QC): 88 ADL-Treatment Eating (QC): 5 (based on clincial judgment and pt report.) Oral Hygiene (QC): 4 (SBA, pt required verbal cues to adhere to liquid rest riction, but he did not follow instructions. Pt able to brush teeth without physical assistance.) Shower/Bathe Self (QC): 2 (Pt only washed periarea and buttocks, requiring assistance with drying buttocks. Pt required max verbal cues for sequencing, he continued to wash hands but did not initiate washing any other parts of body. Assistance required to wash BUEs, chest/abdomen, and LEs.) Upper Body Dressing (QC): 4 (supervision with supervisor pullet farm shirt.) Lower Body Dressing (QC): 3 (Min A standing balance for pant hike. Pt able to thread LEs and perform pant hike with max verbal cues and increased time.) On/Off Footwear (QC): 3 (Mod A, pt able to doff socks, assistance provided to don BLE gripper socks) Toileting Hygiene (QC): 3 (Min A standing balance, pt able to perform clothing management, assistance with hygiene.) Assessment/Plan Assessment and Plan Assess & Plan/Chief Complaint Assessment: 1. 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 CAD 4. HTN 5. Essential tremor 6. Alcohol use disorder 7. RLE cellulitis 8. Hypercalcemia 10.8 9. Anemia Plan: Fluid restriction Sodium supplementation Supportive care Inpatient rehab protocol 09/24/2021: Increase fluid intake relaxing restriction Stop sodium chloride tablets and urea (1) Encephalopathy SUSAN MITCHELL DO Sep 24, 2021 10:10
--- NOTE | 2021-09-24 10:10 | Individualized Plan of Care ---
Individualized Plan of Care Rehab Nursing IPOC Order Admission Date Sep 23, 2021 at 14:55 Current Orders Orders Admission Order(Inpt,Obs,Sdc) (09/23/21 10:46) Vital Signs: Per Unit Policy ( ,16,00 (09/23/21 10:46) Rodney Peña (09/23/21 10:46) Sequential Compression Device .admit (09/23/21 10:46) Die Casting Machine Operator-Inpt Rehab Con (09/23/21 10:46) Rehab Nursing Orders-Ipoc (09/23/21 10:46) Physical Therapy Rehab Orders (09/23/21 10:46) Occupational Therapy Rehab Ord (09/23/21 10:46) Speech Therapy Rehab Orders (09/23/21 10:46) Cbc With Automated Diff (09/24/21 06:00) Comprehensive Metabolic Panel (09/24/21 06:00) Precautions (Aru) (09/23/21 10:46) Rehab-Intensity Of Therapy (09/23/21 10:46) Initiate Admission Nursing Pro .admission (09/23/21 10:46) Alprazolam Tablet (Xanax Tablet) (09/23/21 11:00) Calcium Carbonate Chew Tablet (Antacid C (09/23/21 11:00) Diphenhydramine Tablet (Benadryl Tablet) (09/23/21 11:00) Docusate Sodium Capsule (Colace Capsule) (09/23/21 21:00) Docusate Sodium Capsule (Colace Capsule) (09/23/21 11:00) Bisacodyl Suppository (Dulcolax Supposit (09/23/21 11:00) Lactulose Oral Solution (Enulose Oral So (09/23/21 11:00) Na Phos/Na Biphos Enema (Fleet Enema Ilya (09/23/21 11:00) Guaifenesin/Codeine Syrup (Robitussin Ac (09/23/21 11:00) Loperamide Tablet (Imodium Tablet) (09/23/21 11:00) Melatonin Tablet (Melatonin Tablet) (09/23/21 11:00) Polyethylene Glycol Powder Pkt (Miralax (09/23/21 21:00) Ondansetron Oral Dissolve Tab (Zofran (09/23/21 11:00) Senna S Tablet (Senokot S Tablet) (09/23/21 21:00) Initiate Admission Nursing Pro .admission (09/23/21 10:46) Admission Arrival Bed Request (09/23/21 15:19) Transfer - Bed/Room/Location (09/23/21 16:36) Acetaminophen Tablet/Caplet (Tylenol T (09/23/21 17:00) Atorvastatin Tablet (Lipitor Tablet) (09/24/21 09:00) Clopidogrel Tablet (Plavix Tablet) (09/24/21 09:00) Doxycycline Hyclate Tablet (Vibramycin T (09/23/21 18:00) Enoxaparin Injection (Lovenox Injection) (09/24/21 09:00) Metoprolol Tartrate (Ir) Tab (Lopressor (09/23/21 21:00) Pantoprazole Tablet (Protonix Tablet) (09/24/21 09:00) Primidone Tablet (Mysoline Tablet) (09/23/21 17:00) Sodium Chloride Tablet (Sodium Chloride (09/23/21 21:00) Urea (Ure-Na) (09/24/21 09:00) Fluticasone Nasal [place] (Flonase Nasal S (09/24/21 09:00) [place] 3 Capsule (Fish Oil Capsule) (09/23/21 21:00) Urea (Ure-Na) (09/24/21 09:00) Ziprasidone Injection (Geodon Injection) (09/23/21 21:30) Water (Sterile) For Injection (Sterile W (09/23/21 21:30) Lorazepam Tablet (Ativan Tablet) (09/23/21 21:30) Fluid Restriction (09/24/21 10:16) Patient Visit (09/24/21 ) Speech Sound Lang Comp (09/24/21 ) Treat. Speech/Lang/Voice (09/24/21 ) Patient Visit (09/24/21 ) Functional Activities, Ea 15 (09/24/21 ) Exercise Therap, Ea 15 Min (09/24/21 ) General/Regular (09/24/21 Lunch) Rehab Nursing Orders: Ongoing Assess. of Cognitive Status, Ongoing Assess. of Function Status, Bladder Management, Bladder Scan, Bladder Training, Bowel Management, Bowel Training, Disease Management & Educaiton, DVT Prophylaxis, Fall Prevention, Fluid/Electrolyte/Nutrition Mgmt, Infection Prevention, Me dication Management & Education, Management of Risks & Complications, Management of Skin Intergrity, Nutrition Management, Pain Management, Patient/Family Support, Safety Management Intensity of Therapy to be met Patient to be seen: Min.3h per day/5 of 7d PT IPOC Problem List: Activity Tolerance, Functional Strength, Safety, Balance, Transfer Treatment Plan: Continue Plan of Care Bed Mobility, Education, Functional Activity Johnathan, Functional Strength, Group Therapy, Gait, Safety, Therapeutic Exercise, Transfers Treatment Duration: Oct 14, 2021 Frequency: At least 5 of 7 days/Wk (IRF) Estimated Hrs Per Day: 1.5 hours per day OT IPOC Problems: Decreased Activ Tolerance, Decreased Safety Aware, Decreased UE Strength, Impaired Cognition, Impaired Funct Balance, Impaired I ADL's, Impaired Self-Care Skills, Restricted Funct UE ROM OT Treatment, Training and Edu: Yes Plan of Care: ADL Retraining, Functional Mobility, Group Exercise/Act as Ind, UE Funct Exercise/Act Treatment Duration: Oct 16, 2021 Frequency: At least 5 of 7 days/Wk (IRF) Estimated Hrs Per Day: 1.[address] IPOC Speech Therapy Treatment Plan: Continue Plan of Care Treatment Duration: Sep 24, 2021 Frequency: 3 times per week Estimated Hrs Per Day: 1 hour per day Die Casting Machine Operator/Case Mgmt Die Casting Machine Operator/Case Managemen: Discharge Planning Dietitian/Tunnel Elastic Operator Lockstitch Dietitian/Tunnel Elastic Operator Lockstitch to monitor nutritional status and make changes and/or recommendations as needed and work with speech pathology on dietary upgrades as the occur. Physician IPOC Medical Issues being managed closely and that require the 24 hour availability of a physician: Recent critical illness with encephalitis and residual confusion will require close monitoring for decompensation in addition to fall risk and close monitoring of hyponatremia Medical Issues: Bowel/Bladder Function, DVT Prophylaxis, Falls Precautions, Fluid/Electrolyte/Nutrition Balance, Infection Protection, Pain Management Brief Synthesis of Preadmission Screen, Post-Admission Evaluation, and Therapy Evaluations: PT and OT will focus on regaining function in order to return back to independent living with the use of assistive devices and ambulatory support with fall risk prevention Medical Prognosis: Guarded Anticipated Length of Stay: 2 weeks SUSAN MITCHELL DO Sep 24, 2021 10:10
--- NOTE | 2021-09-24 11:08 | ST Cognitive Linguistic Eval ---
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 Grande Medical History Reviewed History: Yes Social History Current Living Status: Spouse Speech PLF-Current Status Prior Level of Function Patient lives at home with his . They have one daughter and two grandsons who live near by. Patient was independent prior to current illness. Subjective Patient was pleasant and cooperative with the cognitive assessment. Language Eval: Auditory Comprehends Simple Yes/No Ques: Functional Indent/Objects Multiple Gibson: Functional Ident/Pics in Multiple Gibson: Functional Follows 1-Step Commands: Functional Follows Complex Directions: Mild Follows General Conversations: Mild Language Eval: Verbal Language Completes Spontaneous Greeting: Functional Produces Auto, Serial Info: Functional Imitates Simple Words/Phrases: Functional Word Finding: Mild Requests Basic Needs: Functional States Basic Personal Info: Functional Expresses Complex Ideas: Mild Objective Cognitive Domain Attention: WNL Memory: Mild Problem Solving: Mild Executive Functions: Mild Visuospatial Skills: Mild Composite Severity Rating: Mild Clock Drawing Severity Rating: Mild Objective Formal/Standardized Tests [facility] Mental Status ([facility]) Results 22/30, Mild Neurocognitive Disorder range of function Oral Motor/Speech Production Within Normal Limits Impression Patient is a pleasant 71 y/o male who was admitted to the ARU s/p acute encephalopathy due to viral meningitis. The patient arrived from [facility] in yesterday afternoon. The patient completed the UMS with a score of 22/30 obtained. The patient's score is within the MNCD range of function. He states his speech has significantly improved since the onset of his illness. He was noted during the evaluation to self correct while answering the questions. The patient will receive skilled ST in order to improve functional level and safety awareness for returning to his home. Speech Patient Assess Expression of Ideas/Wants: Exhibits (3) Understanding Verbal Content: Usually Understands (3) Brief Interview-Mental Status: Yes Repetition of Three Words: Two (2) Temporal Orientation: Year: Correct (3) Temporal Orientation: Month: Accurate within 5 days(2) Temporal Orientation: Day: Correct (1) Recall : Wear to say "Sock": Yes,after cueing (1) Recall : Color: Yes, after cueing (1) Recall : Bed: No, could not recall (0) Memory/Recall Ability: Current season Speech Short Term Goals Short Term Goals Short Term Goals 1) Patient will complete memory tasks related to his daily needs at 80% or greater with minimal cues. 2) Patient will complete safety awareness tasks related to his daily needs at 80% or greater with minimal cues. 3) Patient will complete problem solving tasks related to his daily needs at 80% or greater with minimal cues. Speech Residential Goals Marine Architect Goals The patient will improve functional abilities in order to be safe and independe nt in his living environment. Speech-Plan Patient/Family Goals Patient/Family Goals: Patient plans to return to his home where he lives with his . Treatment Plan Speech Therapy Treatment Plan: Continue Plan of Care Treatment Duration: Oct 09, 2021 Frequency: 5 times per week Estimated Hrs Per Day: .5 hour per day Rehab Potential: Guarded Barriers to Learning: Patient's medical status, cognitive deficits Pt/Family Agrees to Plan: Yes Safety Risks/Education Teaching Recipient: Patient Teaching Methods: Discussion Response to Teaching: Verbalize Understanding Education Topics Provided: Safety within his room, utilization of the call light as needed, communication of wants/needs Time Speech Therapy Time In: 10:30 Speech Therapy Time Out: 11:00 Total Billed Time: 30 Billed Treatment Time 1, CHELLE BAR [facility] ST Sep 24, 2021 11:08
--- NOTE | 2021-09-24 15:19 | Physical Therapy Daily Note ---
PT Daily Note-Current Subjective Pt sitting in recliner upon arrival. Sp is present. Pt agrees to PT. Sp reports bringing clothes, putting them in closet & bringing pt's electric razor. Pain Location: No Pain Reported Mental Status Patient Orientation: Person, Confused, Place Transfers SCALE: Activities may be completed with or without assistive devices. 7-Nprjngutte-luogiuo completes the activity by him/herself with no assistance from a helper. 5-Set-up or Clean-up Assistance-helper sets up or cleans up; patient completes activity. [place] assists only prior to or following the activity. 4-Supervision or Touching Assistance-helper provides verbal cues and/or touching/steadying and/or contact guard assistance as patient completes activity. Assistance may be provided throughout the activity or intermittently. 3-Partial/Moderate Assistance-helper does LESS THAN HALF the effort. [place] lifts, holds or supports trunk or limbs, but provides less than half the effort. 2-Substantial/Maximal Assistance-helper does MORE THAN HALF the effort. [place] lifts or holds trunk or limbs and provides more than half the effort. 7-Qeihghwna-imhvec does ALL the effort. Patient does none of the effort to complete the activity. Or, the assistance of 2 or more helpers is required for the patient to complete the activity. If activity was not attempted, code reason: 7-Patient Refused. 9-Not Applicable-not attempted and the patient did not perform the activity before the current illness, exacerbation or injury. 10-Not Attempted due to Environmental Limitations-(lack of equipment, weather restraints, etc.). 88-Not Attempted due to Medical Conditions or Safety Concerns. Weight Bearing Full Weight Bearing Full Weight Bearing Exercises Supine Ex: Ankle pumps, Quad Set, Glut sets, Heel Slides, Short Arc Quads, Straight leg raise, Hip abd/add Supine Reps: 15 Seated Therapy Exercises: Ankle pumps, Long arc quads, Hip flexion Seated Reps: 15 Treatments EDGE BANDER HAND issues and reviews written HEP for Supine & Seated Ex with both pt & Sp. Pt resting in recliner with all needs met, call light in hand. Assessment Current Status: Fair Progress Pt needs VC & TC to have pt complete EX. PT Short Term Goals Short Term Goals Time Frame: Sep 30, 2021 Roll Left & Right: 4 Sit to lyin (Balaji) Lying to sitting on side of be: 3 (Balaji) Sit to stand: 3 (Mando) Chair/tyk-ut-pifsa transfer: 3 (Balaji) Walk 10 feet: 3 (mnA) PT Senior Living Goals Senior Living Goals PT Senior Living Goals Time Frame: Oct 14, 2021 Roll Left & Right (QC): 6 Sit to Lying (QC): 4 (SBA) Lying-Sitting on Side/Bed(QC): 4 (SBA) Sit to Stand (QC): 4 (CGA) Chair/Uku-bt-Jfbog Xfer(QC): 4 (CGA) Toilet Transfer (QC): 4 (CGA) Car Transfer (QC): 3 (Balaji) Does the Patient Walk: Yes Walk 10 feet (QC): 4 (CGA) Walk 50ft with 2 Turns (QC): 4 (CGA) Walk 150 ft (QC): 4 (CGA) Walking 10ft on Uneven Surface: 3 (Balaji) 1 Step (curb) (QC): 3 (Balaji) 4 Steps (QC): 3 (Balaji) 12 Steps (QC): 88 Picking up an Object (QC): 3 (Balaji) Wheel 50 feet with 2 turns (QC: 6 Wheel 150 feet: 6 PT Plan Problem List Problem List: Activity Tolerance, Functional Strength Treatment/Plan Treatment Plan: Continue Plan of Care Treatment Plan: Bed Mobility, Education, Functional Activity Johnathan, Functional Strength, Group Therapy, Gait, Safety, Therapeutic Exercise, Transfers Treatment Duration: Oct 14, 2021 Frequency: At least 5 of 7 days/Wk (IRF) Estimated Hrs Per Day: 1.5 hours per day Patient and/or Family Agrees t: Yes Safety Risks/Education Patient Education: Issued Written HEP Teaching Recipient: Patient, Significant Other Teaching Methods: Demonstration, Discussion Response to Teaching: Reinforcement Needed Time/GCodes Time In: 1300 Time Out: 1330 Total Billed Treatment Time: 30 Total Billed Treatment 1, EX x2 (30m) DAVIDE HAWLEY EDGE BANDER HAND Sep 24, 2021 15:19
[2021-09-24 19:28] VITALS: BP 136/63
[2021-09-24] MEDS: LORazepam 0.5 MG (ATIVAN) TABLET PO PRN (23:41)
[2021-09-24] MEDS: MELATONIN 3 MG TABLET PO PRN (23:41)
[2021-09-25] MEDS: SENNA W/DOCUSATE (SENOKOT S) TABLET PO SCH ×2 (07:45→19:50)
[2021-09-25] MEDS: DOCUSATE SODIUM 100 MG (COLACE) CAP PO SCH ×2 (07:45→19:50)
[2021-09-25] MEDS: meTOprolol TARTRATE 25 MG (LOPRESSOR) TABLET PO SCH ×2 (07:46→19:42)
[2021-09-25] MEDS: DOXYCYCLINE 100 MG (VIBRAMYCIN) TABLET PO SCH ×2 (07:46→17:51)
[2021-09-25] MEDS: OMEGA 3 (FISH OIL) 1000 MG CAP PO SCH ×2 (07:46→19:42)
[2021-09-25] MEDS: ENOXAPARIN 40 MG/0.4 ML (LOVENOX) SYR SQ SCH (07:46)
[2021-09-25] MEDS: PRIMIDONE 50 MG TAB (MYSOLINE) PO SCH ×4 (07:46→19:41)
[2021-09-25] MEDS: PANTOPRAZOLE 40 MG (PROTONIX) TAB PO SCH (07:46)
[2021-09-25] MEDS: FLUTICASONE NASAL SPRAY (FLONASE) 16 GM BTL NS SCH (07:46)
[2021-09-25] MEDS: CLOPIDOGREL 75 MG (PLAVIX) TABLET PO SCH (07:46)
[2021-09-25 07:53] VITALS: BP 134/83
[2021-09-25] MEDS: ACETAMINOPHEN 325 MG TABLET PO PRN (08:14)
[2021-09-25] MEDS: polyethylene glycoL POWDER 17 GM (MIRALAX) PACK PO SCH ×2 (08:45→19:30)
--- NOTE | 2021-09-25 09:00 | Physical Therapy Daily Note ---
PT Daily Note-Current Subjective Patient in bed pre tx, agrees to PT, has 6/10 pain in low back, would like pain meds, nurse notified. Will be co-treating with OT due to poor patient mobility, strength, endurance, severe pain with activity, poor balance and safety awareness, coordinate UE and LE with activity, safety and reduce risk of falls. Appearance Patient in WC post tx, will continue with OT for a bit Mental Status Patient Orientation: Person, Place, Situation Transfers SCALE: Activities may be completed with or without assistive devices. 9-Nucvqnrugu-hyardoq completes the activity by him/herself with no assistance from a helper. 5-Set-up or Clean-up Assistance-helper sets up or cleans up; patient completes activity. [place] assists only prior to or following the activity. 4-Supervision or Touching Assistance-helper provides verbal cues and/or touching/steadying and/or contact guard assistance as patient completes activity. Assistance may be provided throughout the activity or intermittently. 3-Partial/Moderate Assistance-helper does LESS THAN HALF the effort. [place] lifts, holds or supports trunk or limbs, but provides less than half the effort. 2-Substantial/Maximal Assistance-helper does MORE THAN HALF the effort. [place] lifts or holds trunk or limbs and provides more than half the effort. 9-Ezwmvmlan-dokzvz does ALL the effort. Patient does none of the effort to compl ete the activity. Or, the assistance of 2 or more helpers is required for the patient to complete the activity. If activity was not attempted, code reason: 7-Patient Refused. 9-Not Applicable-not attempted and the patient did not perform the activity before the current illness, exacerbation or injury. 10-Not Attempted due to Environmental Limitations-(lack of equipment, weather restraints, etc.). 88-Not Attempted due to Medical Conditions or Safety Concerns. Roll Left & Right (QC): 6 Lying to Sitting/Side of Bed(Q: 4 Sit to Stand (QC): 3 Chair/Rgh-gn-Abvsp Xfer(QC): 3 min to mod assist for sit to stand and transfers. Patient ambulates to the restroom to brush his teeth and then sits in WC. Patient needs cues for hand placement and positioning. Gets confused easily. Weight Bearing Full Weight Bearing Full Weight Bearing Gait Training Distance: 10', 20'x4 Walk 10 feet (QC): 3 Gait Assistive Device: FWW WC follow, back pain limits distance, min to mod assist for balance, very unsteady, uncoordinated steps Wheelchair Training Does the Pt Use a Wheelchair?: Yes Wheel 50 ft with 2 turns (QC): 4 Wheel 150 ft (QC): 4 Type of Wheelchair: Manual 200', several rest breaks Exercises Standing balance activity hitting balloon each side, min assist for balance Treatments PT performed bed mobility and transfers, ambulation, WC mobility, standing during balloon activity, OT performed balloon activity, ADL's, UE positioning and safety during activity Assessment Current Status: Fair Progress slightly improved transfers and ambulation since tuesday PT Short Term Goals Short Term Goals Time Frame: Sep 30, 2021 Roll Left & Right: 4 Sit to lyin (Balaji) Lying to sitting on side of be: 3 (Balaji) Sit to stand: 3 (Mando) Chair/xka-oj-ueuwq transfer: 3 (Balaji) Walk 10 feet: 3 (mnA) PT Steam Fitter Goals Steam Fitter Goals PT Steam Fitter Goals Time Frame: Oct 14, 2021 Roll Left & Right (QC): 6 Sit to Lying (QC): 4 (SBA) Lying-Sitting on Side/Bed(QC): 4 (SBA) Sit to Stand (QC): 4 (CGA) Chair/Xsn-ql-Yugcf Xfer(QC): 4 (CGA) Toilet Transfer (QC): 4 (CGA) Car Transfer (QC): 3 (Balaji) Does the Patient Walk: Yes Walk 10 feet (QC): 4 (CGA) Walk 50ft with 2 Turns (QC): 4 (CGA) Walk 150 ft (QC): 4 (CGA) Walking 10ft on Uneven Surface: 3 (Balaji) 1 Step (curb) (QC): 3 (Balaji) 4 Steps (QC): 3 (Balaji) 12 Steps (QC): 88 Picking up an Object (QC): 3 (Balaji) Wheel 50 feet with 2 turns (QC: 6 Wheel 150 feet: 6 PT Plan Problem List Problem List: Activity Tolerance, Functional Strength, Safety, Balance, Gait, Transfer, Bed Mobility, ROM Treatment/Plan Treatment Plan: Continue Plan of Care Treatment Plan: Bed Mobility, Education, Functional Activity Johnathan, Functional Strength, Group Therapy, Gait, Safety, Therapeutic Exercise, Transfers Treatment Duration: Oct 14, 2021 Frequency: At least 5 of 7 days/Wk (IRF) Estimated Hrs Per Day: 1.5 hours per day Patient and/or Family Agrees t: Yes Safety Risks/Education Patient Education: Gait Training, Transfer Techniques, Correct Positioning, W/C Management, Safety Issues Teaching Recipient: Patient Teaching Methods: Demonstration, Discussion Response to Teaching: Reinforcement Needed Time/GCodes Time In: 0800 Time Out: 0900 Total Billed Treatment Time: 60 Total Billed Treatment 1 visit EX 15' FA 45' co-treated for 60' SANFORD ALEJANDRE PT Sep 25, 2021 09:00
--- NOTE | 2021-09-25 10:36 | Occupational Ther Daily Note ---
OT Current Status-Daily Note Subjective Pt was lying supine in bed w/ HOB elevated upon OT/PT arrival. Pt agreed to COTREAT on this date. Mental Status/Objective Patient Orientation: Person, Place, Situation ADL-Treatment Therapy Code Descriptions/Definitions Functional [place] Measure: 0=Not Assessed/NA 4=Minimal Assistance 1=Total Assistance 5=Supervision or Setup 2=Maximal Assistance 6=Modified [place] 3=Moderate Assistance 7=Complete IndependenceSCALE: Activities may be completed with or without assistive devices. 4-Oggyqlgrqw-gtboobv completes the activity by him/herself with no assistance from a helper. 5-Set-up or Clean-up Assistance-helper sets up or cleans up; patient completes activity. [place] assists only prior to or following the activity. 4-Supervision or Touching Assistance-helper provides verbal cues and/or touching/steadying and/or contact guard assistance as patient completes activity. Assistance may be provided throughout the activity or intermittently. 3-Partial/Moderate Assistance-helper does LESS THAN HALF the effort. [place] lifts, holds or supports trunk or limbs, but provides less than half the effort. 2-Substantial/Maximal Assistance-helper does MORE THAN HALF the effort. [place] lifts or holds trunk or limbs and provides more than half the effort. 5-Oaiycvzzw-uuspdi does ALL the effort. Patient does none of the effort to complete the activity. Or, the assistance of 2 or more helpers is required for the patient to complete the activity. If activity was not attempted, code reason: 7-Patient Refused. 9-Not Applicable-not attempted and the patient did not perform the activity before the current illness, exacerbation or injury. 10-Not Attempted due to Environmental Limitations-(lack of equipment, weather restraints, etc.). 88-Not Attempted due to Medical Conditions or Safety Concerns. Oral Hygiene (QC): 4 (Pt required CGA while standing sink side w/ FWW for task.) Upper Body Dressing (QC): 4 (Pt required SBA w/ x3 VC's for initiation. ) Toileting Hygiene (QC): 4 (Pt requires CGA for pant hike. ) Toilet Transfer (QC): 4 (Pt requires CGA for safety. ) Other Treatment [id number] OT/PT cotreat due to skill of 2 clinicians required which a restorative rehab aide could not perform in order to coordinate UE/LEs, decrease fall risk, and due to pt's limitations in standing balance, transfers/mobility, problem solving, sequencing, and safety awareness. OT focused on UE placement, cues for sequencing and safety and ADLs, PT focused on LE placement, gross overall movements, and transfers/mobility. Pt was lying supine in bed w/ HOB elevated upon OT/PT arrival. Pt performed bed mobility from supine to EOB. Pt transferred sit to stand w/ FWW. Pt performed functional mobility w/ FWW to toilet, pt could not urinate. Pt then performed functional mobility w/ FWW to sink side for oral hygiene, CGA. Pt began to feel tired. Pt transferred from FWW to w/c. Pt performed wheelchair mobility from room to therapy gym, pt required VC's for safety and skill, required x4 rest breaks. Pt performed functional mobility in therapy gym w/ FWW, please refer to PT note for assistance level and distance. Pt participated in BUE exercises in the following between functional mobility in gym while seated: Round 1: shoulder abduction, x5 reps, pt complained of R shoulder pain during exercises. Round 2: x10 reps each, elbow flexion, elbow extension. Pt performed balloon activity while standing w/ FWW w/ seated rest breaks before and after each round, in all planes to support ROM, standing balance, and endurance for ADL's: Round 1: Hit balloon w/ L UE. Round 2: Hit balloon w/ R UE, no overhead reaching due to decrease in ROM. Pt participated in w/c mobility back towards his room. Min-Mod A with sit to stand/transfers, min-mod A with balance at FWW during dynamic tasks. [id number] OT tx session. Pt participated in w/c mobility from therapy hallway to room, requiring several VC's for navigation and safety. Pt requested to get dressed for the day. Pt participated in UBD, and doffed LE clothing. Pt requested to use the bathroom, taken into the bathroom via w/c. Pt transferred from w/c to toilet at [facility] using GBs. Pt performed toileting task seated, see above QC. OT assisted to martin LBD due to time constraint. Pt transferred from toilet to w/c to chair. Pt required several VC's throughout OT session for hand placement and to stay on task. Post tx session, pt was seated in chair, legs elevated, call light within reach, and all needs met. Education OT Patient Education: Correct positioning, Energy conservation, Modified ADL techniques, Progress toward Goal/Update tx plan, Purpose of tx/functional activities, Rehab process, Safety issues, Transfer techniques, W/C management Teaching Recipient: Patient Teaching Methods: Demonstration, Discussion Response to Teaching: Verbalize Understanding, Return Demonstration, Reinforcement Needed OT Short Term Goals Short Term Goals Time Frame: Oct 07, 2021 Oral hygiene: 5 Shower/bathe self: 4 Lower body dressin OT Jail Goals Compliance Representative Dealer Goals Time Frame: Oct 16, 2021 Eating (QC): 6 Oral Hygiene (QC): 6 Toileting Hygiene (QC): 6 Shower/Bathe Self (QC): 4 Upper Body Dressing (QC): 5 Lower Body Dressing (QC): 4 On/Off Footwear (QC): 4 Additional Goals: 1-Demonstrate ADL Tasks, 2-Verbalize Understanding, 3- ImproveStrength/Johnathan 1=Demonstrate adherence to instructed precautions during ADL tasks. 2=Patient will verbalize/demonstrate understanding of assistive devices/modifications for ADL. 3=Patient will improve strength/tolerance for activity to enable patient to perform ADL's. OT Education/Plan Problem List/Assessment Assessment: Decreased Activ Tolerance, Decreased Safety Aware, Decreased UE Strength, Impaired Cognition, Impaired Coordination, Impaired Funct Balance, Impaired I ADL's, Impaired Self-Care Skills, Restricted Funct UE ROM Discharge Recommendations Plan/Recommendations: Continue POC Treatment Plan/Plan of Care Patient would benefit from OT for education, treatment and training to promote independence in ADL's, mobility, safety and/or upper extremity function for ADL's. Plan of Care: ADL Retraining, Functional Mobility, Group Exercise/Act as Ind, UE Funct Exercise/Act Treatment Duration: Oct 16, 2021 Frequency: At least 5 of 7 days/Wk (IRF) Estimated Hrs Per Day: 1.5 hours per day Rehab Potential: Guarded Time/GCodes Start Time: 08:00 Stop Time: 09:15 Total Time Billed (hr/min): 75 Billed Treatment Time 1 Visit, ADL 2 (30'), EX 2 (25'), FA (20') LIZANDRO HAM OT Sep 25, 2021 10:36
[2021-09-25] MEDS ORDERED: MICONAZOLE 2% POWDER (DESENEX AF) 90 GM TOP PRN (11:00)
--- NOTE | 2021-09-25 11:04 | PM&R Progress Note ---
Subjective HPI/CC On Admission Date Seen by Provider: Sep 25, 2021 Time Seen by Provider: 11:15 Subjective/Events-last exam 09/25/2021: Patient doing well Less confusion Continues with therapy Bowels are moving No urinary issues 09/24/2021: Patient doing pretty well Bowels moved Sodium 138 so we will hold sodium chloride tablets and urea Fluid restriction will be increased to 1800 Bilateral foot pain reported bit unreliable details when he describes it Check meds and labs Review of Systems General: Fatigue, Malaise Neurological: Weakness, Confusion Objective Exam Vital Signs Vital Signs Date Time Temp Pulse Resp B/P (MAP) Pulse Ox O2 Delivery O2 Flow Rate FiO2 09/25/21 19:51 Room Air 09/25/21 19:13 36.8 103 20 119/66 (83) 96 Capillary Refill : General Appearance: No Apparent Distress, WD/WN, Chronically ill HEENT: PERRL/EOMI, Normal ENT Inspection, Pharynx Normal Neck: Full Range of Motion, Normal Inspection, Non Tender, Supple, Carotid Bruit Respiratory: Chest Non Tender, Lungs Clear, Normal Breath Sounds, No Accessory Muscle Use, No Respiratory Distress Cardiovascular: Regular Rate, Rhythm, No Edema, No Gallop, No JVD, No Murmur, Normal Peripheral Pulses Gastrointestinal: Normal Bowel Sounds, No Organomegaly, No Pulsatile Mass, Non Tender, Soft Back: Normal Inspection, No CVA Tenderness, No Vertebral Tenderness Extremity: Normal Capillary Refill, Normal Inspection, Normal Range of Motion, Non Tender, No Calf Tenderness, No Pedal Edema Neurologic/Psychiatric: Alert, No Motor/Sensory Deficits, Abnormal Gait, Depressed Affect, Motor Weakness, Sensory Deficit Skin: Normal Color, Warm/Dry Lymphatic: No Adenopathy Results/Procedures Lab Patient resulted labs reviewed. FIM Transfers Therapy Code Descriptions/Definitions Functional [place] Measure: 0=Not Assessed/NA 4=Minimal Assistance 1=Total Assistance 5=Supervision or Setup 2=Maximal Assistance 6=Modified [place] 3=Moderate Assistance 7=Complete IndependenceSCALE: Activities may be completed with or without assistive devices. 2-Zwaoorkmca-yggwnkk completes the activity by him/herself with no assistance from a helper. 5-Set-up or Clean-up Assistance-helper sets up or cleans up; patient completes activity. [place] assists only prior to or following the activity. 4-Supervision or Touching Assistance-helper provides verbal cues and/or touching/steadying and/or contact guard assistance as patient completes activity. Assistance may be provided throughout the activity or intermittently. 3-Partial/Moderate Assistance-helper does LESS THAN HALF the effort. [place] lifts, holds or supports trunk or limbs, but provides less than half the effort. 2-Substantial/Maximal Assistance-helper does MORE THAN HALF the effort. [place] lifts or holds trunk or limbs and provides more than half the effort. 7-Bgthfkcmp-gchiie does ALL the effort. Patient does none of the effort to complete the activity. Or, the assistance of 2 or more helpers is required for the patient to complete the activity. If activity was not attempted, code reason: 7-Patient Refused. 9-Not Applicable-not attempted and the patient did not perform the activity before the current illness, exacerbation or injury. 10-Not Attempted due to Environmental Limitations-(lack of equipment, weather restraints, etc.). 88-Not Attempted due to Medical Conditions or Safety Concerns. Roll Left to Right (QC): 6 Sit to Lying (QC): 3 Sit to Stand (QC): 3 Chair/Eat-yl-Fyrqb Xfer(QC): 3 Car Transfer (QC): 3 Gait Training Does the Patient Walk?: Yes Distance: 10', 20'x4 Walk 10 feet (QC): 3 Walk 50 ft with 2 Turns(QC): 88 Walk 150 ft (QC): 88 Walking 10ft/uneven surface-QC: 88 Gait Assistive Device: FWW Wheelchair Training Does the Pt Use a Wheelchair?: Yes Distance: 150' Wheel 50 ft with 2 turns (QC): 4 Wheel 150 ft (QC): 4 Type of Wheelchair: Manual Stair Training 1 Step (curb) (QC): 88 4 Steps (QC): 88 12 Steps (QC): 88 Balance Picking up an Object (QC): 88 ADL-Treatment Eating (QC): 5 (based on clincial judgment and pt report.) Oral Hygiene (QC): 4 (Pt required CGA while standing sink side w/ FWW for task.) Shower/Bathe Self (QC): 2 (Pt only washed periarea and buttocks, requiring ass istance with drying buttocks. Pt required max verbal cues for sequencing, he continued to wash hands but did not initiate washing any other parts of body. Assistance required to wash BUEs, chest/abdomen, and LEs.) Upper Body Dressing (QC): 5 (Pt required set up w/ x3 VC's for initiation. ) Lower Body Dressing (QC): 3 (Min A standing balance for pant hike. Pt able to thread LEs and perform pant hike with max verbal cues and increased time.) On/Off Footwear (QC): 3 (Mod A, pt able to doff socks, assistance provided to don BLE gripper socks) Toileting Hygiene (QC): 4 (Pt requires CGA for pant hike. ) Toilet Transfer (QC): 4 (Pt requires CGA for safety. ) Assessment/Plan Assessment and Plan Assess & Plan/Chief Complaint Assessment: 1. 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 CAD 4. HTN 5. Essential tremor 6. Alcohol use disorder 7. RLE cellulitis 8. Hypercalcemia 10.8 9. Anemia Plan: Fluid restriction Sodium supplementation Supportive care Inpatient rehab protocol 09/24/2021: Increase fluid intake relaxing restriction Stop sodium chloride tablets and urea 09/25/2021: Close monitoring of sodium Supportive care (1) Encephalopathy SUSAN MITCHELL DO Sep 25, 2021 11:04
--- NOTE | 2021-09-25 11:12 | Speech Therapy Daily Note ---
Speech Daily Progress Note Subjective Date Seen by Provider: Sep 25, 2021 Time Seen by Provider: 00:30 Patient was resting in his bed following OT & PT. He stated he was tired this morning. He was pleasant and participated well despite his being tired. Objective Patient completed temporal tasks related to daily needs at 75% with 225% visual/verbal cues given. Assessment Assessment Current Status: Good Progress Treatment Plan Continue Plan of Care Speech Short Term Goals Short Term Goals Short Term Goals 1) Patient will complete memory tasks related to his daily needs at 80% or greater with minimal cues. 2) Patient will complete safety awareness tasks related to his daily needs at 80% or greater with minimal cues. 3) Patient will complete problem solving tasks related to his daily needs at 80% or greater with minimal cues. Speech Chcf Goals Chcf Goals The patient will improve functional abilities in order to be safe and independent in his living environment. Speech-Plan Patient/Family Goals Patient/Family Goals: Patient plans to return home where he lives with his . Treatment Plan Speech Therapy Treatment Plan: Continue Plan of Care Treatment Duration: Sep 24, 2021 Frequency: 5 times per week Estimated Hrs Per Day: .5 hour per day Rehab Potential: Guarded Barriers to Learning: Patient's recent medical incidents, cognitive deficits Pt/Family Agrees to Plan: Yes Safety Risks/Education Teaching Recipient: Patient Teaching Methods: Demonstration, Discussion Response to Teaching: Verbalize Understanding, Return Demonstration Education Topics Provided: Continued safety awareness within his room, communication of wants/needs Time Speech Therapy Time In: 10:30 Speech Therapy Time Out: 11:00 Total Billed Time: 30 Billed Treatment Time 1, SHAKA Novak Sep 25, 2021 11:12
--- NOTE | 2021-09-25 14:47 | Physical Therapy Daily Note ---
PT Daily Note-Current Subjective Patient in recliner pre tx, agrees to PT, has no complaints of pain. Appearance Patient in recliner post tx with nurse call, phone, tray, chair alarm on. Mental Status Patient Orientation: Person, Confused Transfers SCALE: Activities may be completed with or without assistive devices. 4-Opwbpnehvj-ahcmwap completes the activity by him/herself with no assistance from a helper. 5-Set-up or Clean-up Assistance-helper sets up or cleans up; patient completes activity. [place] assists only prior to or following the activity. 4-Supervision or Touching Assistance-helper provides verbal cues and/or touching/steadying and/or contact guard assistance as patient completes activity. Assistance may be provided throughout the activity or intermittently. 3-Partial/Moderate Assistance-helper does LESS THAN HALF the effort. [place] lifts, holds or supports trunk or limbs, but provides less than half the effort. 2-Substantial/Maximal Assistance-helper does MORE THAN HALF the effort. [place] lifts or holds trunk or limbs and provides more than half the effort. 4-Gkttihtkb-aovntm does ALL the effort. Patient does none of the effort to complete the activity. Or, the assistance of 2 or more helpers is required for the patient to complete the activity. If activity was not attempted, code reason: 7-Patient Refused. 9-Not Applicable-not attempted and the patient did not perform the activity before the current illness, exacerbation or injury. 10-Not Attempted due to Environmental Limitations-(lack of equipment, weather restraints, etc.). 88-Not Attempted due to Medical Conditions or Safety Concerns. Weight Bearing Full Weight Bearing Full Weight Bearing Exercises Seated Therapy Exercises: Ankle pumps, Hip flexion, Hip abd/add (with ball and RTB) LAQ alternating for 5 min with 2# ankle weights Treatments LE strengthening Assessment Current Status: Fair Progress good performance PT Short Term Goals Short Term Goals Time Frame: Sep 30, 2021 Roll Left & Right: 4 Sit to lyin (Balaji) Lying to sitting on side of be: 3 (Balaji) Sit to stand: 3 (Mando) Chair/rsj-qw-xmemh transfer: 3 (Balaji) Walk 10 feet: 3 (mnA) PT Usp Goals Usp Goals PT Usp Goals Time Frame: Oct 14, 2021 Roll Left & Right (QC): 6 Sit to Lying (QC): 4 (SBA) Lying-Sitting on Side/Bed(QC): 4 (SBA) Sit to Stand (QC): 4 (CGA) Chair/Yps-ua-Bkete Xfer(QC): 4 (CGA) Toilet Transfer (QC): 4 (CGA) Car Transfer (QC): 3 (Balaji) Does the Patient Walk: Yes Walk 10 feet (QC): 4 (CGA) Walk 50ft with 2 Turns (QC): 4 (CGA) Walk 150 ft (QC): 4 (CGA) Walking 10ft on Uneven Surface: 3 (Balaji) 1 Step (curb) (QC): 3 (Balaji) 4 Steps (QC): 3 (Balaji) 12 Steps (QC): 88 Picking up an Object (QC): 3 (Balaji) Wheel 50 feet with 2 turns (QC: 6 Wheel 150 feet: 6 PT Plan Problem List Problem List: Activity Tolerance, Functional Strength, Safety, Balance, Gait, Transfer, Bed Mobility, ROM Treatment/Plan Treatment Plan: Continue Plan of Care Treatment Plan: Bed Mobility, Education, Functional Activity Johnathan, Functional Strength, Group Therapy, Gait, Safety, Therapeutic Exercise, Transfers Treatment Duration: Oct 14, 2021 Frequency: At least 5 of 7 days/Wk (IRF) Estimated Hrs Per Day: 1.5 hours per day Patient and/or Family Agrees t: Yes Safety Risks/Education Patient Education: Correct Positioning, Safety Issues Teaching Recipient: Patient Teaching Methods: Demonstration, Discussion Response to Teaching: Reinforcement Needed Time/GCodes Time In: 1430 Time Out: 1445 Total Billed Treatment Time: 15 Total Billed Treatment 1 visit EX SANFORD SCHMITZ PT Sep 25, 2021 14:47
[2021-09-25] MEDS ORDERED: ATOR10TA66 PO (15:21)
[2021-09-25] MEDS ORDERED: FURO40TA4 PO (15:21)
[2021-09-25] MEDS ORDERED: LOSA50TA63 PO (15:21)
[2021-09-25] MEDS ORDERED: RIFA300C3 PO (15:21)
[2021-09-25] MEDS ORDERED: PLAN450T2 PO (15:23)
[2021-09-25] MEDS ORDERED: ZINC50TA58 PO (15:23)
[2021-09-25] MEDS ORDERED: ASCO-262 PO (15:23)
[2021-09-25] MEDS ORDERED: ANTI1CAP2 PO (15:23)
[2021-09-25 19:13] VITALS: BP 119/66
[2021-09-25] MEDS: MELATONIN 3 MG TABLET PO PRN (20:58)
[2021-09-25] MEDS: LORazepam 0.5 MG (ATIVAN) TABLET PO PRN (20:58)
[2021-09-26 07:30] VITALS: BP 81/51
[2021-09-26] MEDS: OMEGA 3 (FISH OIL) 1000 MG CAP PO SCH ×2 (07:57→20:39)
[2021-09-26] MEDS: DOXYCYCLINE 100 MG (VIBRAMYCIN) TABLET PO SCH ×2 (07:58→17:04)
[2021-09-26] MEDS: meTOprolol TARTRATE 25 MG (LOPRESSOR) TABLET PO SCH ×4 (07:58→20:38)
[2021-09-26] MEDS: CLOPIDOGREL 75 MG (PLAVIX) TABLET PO SCH (07:58)
[2021-09-26] MEDS: PRIMIDONE 50 MG TAB (MYSOLINE) PO SCH ×4 (07:58→20:38)
[2021-09-26] MEDS: PANTOPRAZOLE 40 MG (PROTONIX) TAB PO SCH (07:58)
[2021-09-26] MEDS: SENNA W/DOCUSATE (SENOKOT S) TABLET PO SCH ×2 (07:58→20:45)
[2021-09-26] MEDS: DOCUSATE SODIUM 100 MG (COLACE) CAP PO SCH ×2 (07:58→20:45)
[2021-09-26] MEDS: ENOXAPARIN 40 MG/0.4 ML (LOVENOX) SYR SQ SCH (07:59)
[2021-09-26] MEDS: FLUTICASONE NASAL SPRAY (FLONASE) 16 GM BTL NS SCH (07:59)
--- NOTE | 2021-09-26 09:05 | Occupational Ther Daily Note ---
OT Current Status-Daily Note Subjective Pt. reports 10/10 pain in right shoulder with activity. Nursing notified. Appearance Pt. up ambulating with PT. Pt. already dressed. Pt. alert. Mental Status/Objective Patient Orientation: Unable to Assess ADL-Treatment Therapy Code Descriptions/Definitions Functional [place] Measure: 0=Not Assessed/NA 4=Minimal Assistance 1=Total Assistance 5=Supervision or Setup 2=Maximal Assistance 6=Modified [place] 3=Moderate Assistance 7=Complete IndependenceSCALE: Activities may be completed with or without assistive devices. 9-Scsvxgrtxu-taamnxy completes the activity by him/herself with no assistance from a helper. 5-Set-up or Clean-up Assistance-helper sets up or cleans up; patient completes activity. [place] assists only prior to or following the activity. 4-Supervision or Touching Assistance-helper provides verbal cues and/or touching/steadying and/or contact guard assistance as patient completes activity. Assistance may be provided throughout the activity or intermittently. 3-Partial/Moderate Assistance-helper does LESS THAN HALF the effort. [place] lifts, holds or supports trunk or limbs, but provides less than half the effort. 2-Substantial/Maximal Assistance-helper does MORE THAN HALF the effort. [place] lifts or holds trunk or limbs and provides more than half the effort. 5-Iveztydzw-ueauue does ALL the effort. Patient does none of the effort to complete the activity. Or, the assistance of 2 or more helpers is required for the patient to complete the activity. If activity was not attempted, code reason: 7-Patient Refused. 9-Not Applicable-not attempted and the patient did not perform the activity before the current illness, exacerbation or injury. 10-Not Attempted due to Environmental Limitations-(lack of equipment, weather restraints, etc.). 88-Not Attempted due to Medical Conditions or Safety Concerns. Eating (QC): 5 (Set up) Oral Hygiene (QC): 4 (SBA seated at sink to brush teeth.) Shower/Bathe Self (QC): 7 (Pt. already dressed when OT joins treatment session. Pt. declines.) Upper Body Dressing (QC): 4 (PT reports that pt. required SBA to don shirt.) On/Off Footwear: 3 (CGA seated on side of mat. Pt. doffs slipper socks and dons regular socks and shoes. Min assist to position shoes correctly.) Toileting Hygiene (QC): 3 (Mod assist overall. Pt. able to doff pants over hips with cues. Requires enouragement. Requests that therapy does it for him. Requires encouragement to attempt cleansing self and does so. OT cleanses more thoroughly. Pt. able to pull up pants with min assist for balance.) Toilet Transfer (QC): 3 (Min assist) Other Treatment Pt. seen for partial co-treatment with PT due to need of skilled assistance x 2 during dynamic standing balance activities and endurance challenges. PT focused on balance, mobility, and safety while OT addressed ADL skills. Pt. up with PT when OT began assessing pt. Pt. already dressed. Does not want to dress again. Pt. does practice doffing slipper socks and donning shoes/regular socks. Declines AE even though it would be beneficial. Pt. ambulates with walker with min/mod assist with cues and "jerky" type movements at times. Requires encouragement to do for self. Completed toileting task and reported being very fatigued. Sat and completed grooming tasks. OT took pt. back to gym via wheelchair. Pt. completed arm bike x 7.5 minutes at min resistance with several rest breaks. OT took 02 sats throughout. 97-99%. HR at 67-73. Pt. reports right shoulder hurting. Nursing notified. Pt. donned 1 lb. wrist weights and completed reaching activity with therapy pegs. Increased time needed and pt. asked several times what he was supposed to do. Pt. taken back to room at end of session and transfers to bed with mod assist. SBA to get legs into bed but with max effort. All needs met. Education OT Patient Education: Correct positioning, Exercise program, Modified ADL techniques, Progress toward Goal/Update tx plan, Purpose of tx/functional activities, Reviewed precautions, Rehab process, Transfer techniques Teaching Recipient: Patient Teaching Methods: Demonstration, Discussion Response to Teaching: Verbalize Understanding, Return Demonstration, Reinforcement Needed OT Short Term Goals Short Term Goals Time Frame: Oct 07, 2021 Oral hygiene: 5 Shower/bathe self: 4 Lower body dressin OT [employer] Research Analyst Goals Half-Way Goals Time Frame: Oct 16, 2021 Eating (QC): 6 Oral Hygiene (QC): 6 Toileting Hygiene (QC): 6 Shower/Bathe Self (QC): 4 Upper Body Dressing (QC): 5 Lower Body Dressing (QC): 4 On/Off Footwear (QC): 4 Additional Goals: 1-Demonstrate ADL Tasks, 2-Verbalize Understanding, 3-Impro veStrength/Johnathan 1=Demonstrate adherence to instructed precautions during ADL tasks. 2=Patient will verbalize/demonstrate understanding of assistive devices/modifications for ADL. 3=Patient will improve strength/tolerance for activity to enable patient to perform ADL's. OT Education/Plan Problem List/Assessment Assessment: Decreased Activ Tolerance, Decreased UE Strength, Dependent Transfers, Impaired Cognition, Impaired Funct Balance, Impaired I ADL's, Impaired Self-Care Skills Discharge Recommendations Plan/Recommendations: Continue POC Therapy Discharge Recommendati: Post Acute OT Treatment Plan/Plan of Care Treatment,Training & Education: Yes Patient would benefit from OT for education, treatment and training to promote independence in ADL's, mobility, safety and/or upper extremity function for ADL's. Plan of Care: ADL Retraining, Functional Mobility, Group Exercise/Act as Ind, UE Funct Exercise/Act Treatment Duration: Oct 16, 2021 Frequency: At least 5 of 7 days/Wk (IRF) Estimated Hrs Per Day: 1.5 hours per day Rehab Potential: Fair Time/GCodes Start Time: 07:50 Stop Time: 09:20 Total Time Billed (hr/min): 90 Billed Treatment Time [id number] 1, ADL x 40minutes- co-treat with PT [id number] Ex x 20minutes, FA x 30minutes ED HOYT OT Sep 26, 2021 09:05
[2021-09-26] MEDS: ACETAMINOPHEN 325 MG TABLET PO PRN (09:18)
[2021-09-26 09:32] VITALS: BP 94/56
[2021-09-26] MEDS: polyethylene glycoL POWDER 17 GM (MIRALAX) PACK PO SCH ×2 (09:32→19:38)
--- NOTE | 2021-09-26 09:52 | Physical Therapy Daily Note ---
PT Daily Note-Current Subjective Patient agrees to PT. Pain Numeric Pain Scale: 7 Location: Lower Location Body Site: Back Pain Description: Chronic Mental Status Patient Orientation: Person, Time, Situation Transfers SCALE: Activities may be completed with or without assistive devices. 2-Ielpjfbwnb-pkylgkc completes the activity by him/herself with no assistance from a helper. 5-Set-up or Clean-up Assistance-helper sets up or cleans up; patient completes activity. [place] assists only prior to or following the activity. 4-Supervision or Touching Assistance-helper provides verbal cues and/or touching/steadying and/or contact guard assistance as patient completes activity. Assistance may be provided throughout the activity or intermittently. 3-Partial/Moderate Assistance-helper does LESS THAN HALF the effort. [place] lifts, holds or supports trunk or limbs, but provides less than half the effort. 2-Substantial/Maximal Assistance-helper does MORE THAN HALF the effort. [place] lifts or holds trunk or limbs and provides more than half the effort. 3-Bklptilvi-zndoud does ALL the effort. Patient does none of the effort to complete the activity. Or, the assistance of 2 or more helpers is required for the patient to complete the activity. If activity was not attempted, code reason: 7-Patient Refused. 9-Not Applicable-not attempted and the patient did not perform the activity before the current illness, exacerbation or injury. 10-Not Attempted due to Environmental Limitations-(lack of equipment, weather restraints, etc.). 88-Not Attempted due to Medical Conditions or Safety Concerns. Roll Left & Right (QC): 3 Sit to Lying (QC): 2 Lying to Sitting/Side of Bed(Q: 3 Sit to Stand (QC): 3 Chair/Erf-va-Xzpyr Xfer(QC): 3 Toilet Transfer (QC): 3 min to mod assist with all mobility Weight Bearing Full Weight Bearing Full Weight Bearing Gait Training Does the Patient Walk?: Yes Distance: 150' x 2/100' x 2 Walk 10 feet (QC): 3 Walk 50 ft with 2 Turns(QC): 3 Walk 150 ft (QC): 3 Gait Assistive Device: FWW NBOS/ataxic mod assist with mobility for safety/dynamic balance Fair to Fair - Exercises Supine Ex: Ankle pumps, Quad Set, Heel Slides, Straight leg raise, Hip abd/add Supine Reps: 12 (2 sets ) Seated Therapy Exercises: Long arc quads, Hip flexion Seated Reps: 15 (2 sets) Standing: Sit to Stand (x 8 sets to FWW to address balance ) Treatments (750-830) Pt. seen for partial co-treatment with PT due to need of skilled assistance x 2 during dynamic standing balance activities and endurance challen ges. PT focused on balance, mobility, and safety while OT addressed ADL skills. Pt. up with PT when OT began assessing pt. Pt. already dressed. Does not want to dress again. Assessment Patient requires recovery periods due to fatigue. PT/OT cotreat partial session (see above). Increase activity as tolerated by patient. Patient does become slightly agitated during session. PT ceased treatment with OT continuing. PT Short Term Goals Short Term Goals Time Frame: Sep 30, 2021 Roll Left & Right: 4 Sit to lyin (Bal[place]) Lying to sitting on side of be: 3 (Balaji) Sit to stand: 3 (Mando) Chair/gds-kj-bjaln transfer: 3 (Balaji) Walk 10 feet: 3 (mnA) PT Demurrage Worker Goals Demurrage Worker Goals PT Demurrage Worker Goals Time Frame: Oct 14, 2021 Roll Left & Right (QC): 6 Sit to Lying (QC): 4 (SBA) Lying-Sitting on Side/Bed(QC): 4 (SBA) Sit to Stand (QC): 4 (CGA) Chair/Rsv-by-Apftr Xfer(QC): 4 (CGA) Toilet Transfer (QC): 4 (CGA) Car Transfer (QC): 3 (Balaji) Does the Patient Walk: Yes Walk 10 feet (QC): 4 (CGA) Walk 50ft with 2 Turns (QC): 4 (CGA) Walk 150 ft (QC): 4 (CGA) Walking 10ft on Uneven Surface: 3 (Balaji) 1 Step (curb) (QC): 3 (Balaji) 4 Steps (QC): 3 (Balaji) 12 Steps (QC): 88 Picking up an Object (QC): 3 (Balaji) Wheel 50 feet with 2 turns (QC: 6 Wheel 150 feet: 6 PT Plan Treatment/Plan Treatment Plan: Continue Plan of Care Treatment Plan: Bed Mobility, Education, Functional Activity Johnathan, Functional Strength, Group Therapy, Gait, Safety, Therapeutic Exercise, Transfers Treatment Duration: Oct 14, 2021 Frequency: At least 5 of 7 days/Wk (IRF) Estimated Hrs Per Day: 1.5 hours per day Patient and/or Family Agrees t: Yes Time/GCodes Time In: 700 Time Out: 830 Total Billed Treatment Time: 90 Total Billed Treatment 1 visit GT x 2 30 min EX x 2 30 min FA x 2 30 min CARLI DE LA O PT Sep 26, 2021 09:52
--- NOTE | 2021-09-26 12:35 | PM&R Progress Note ---
Subjective HPI/CC On Admission Date Seen by Provider: Sep 26, 2021 Time Seen by Provider: 12:40 Subjective/Events-last exam 09/26/2021: Dramatic improvement at bedside Participating in therapy We will monitor closely 09/25/2021: Patient doing well Less confusion Continues with therapy Bowels are moving No urinary issues 09/24/2021: Patient doing pretty well Bowels moved Sodium 138 so we will hold sodium chloride tablets and urea Fluid restriction will be increased to 1800 Bilateral foot pain reported bit unreliable details when he describes it Check meds and labs Review of Systems General: Fatigue, Malaise Neurological: Weakness, Confusion Objective Exam Vital Signs Vital Signs Date Time Temp Pulse Resp B/P (MAP) Pulse Ox O2 Delivery O2 Flow Rate FiO2 09/26/21 20:47 Room Air 09/26/21 19:54 37.0 87 18 118/64 (82) 97 Capillary Refill : General Appearance: No Apparent Distress, WD/WN, Chronically ill HEENT: PERRL/EOMI, Normal ENT Inspection, Pharynx Normal Neck: Full Range of Motion, Normal Inspection, Non Tender, Supple, Carotid Bruit Respiratory: Chest Non Tender, Lungs Clear, Normal Breath Sounds, No Accessory Muscle Use, No Respiratory Distress Cardiovascular: Regular Rate, Rhythm, No Edema, No Gallop, No JVD, No Murmur, Normal Peripheral Pulses Gastrointestinal: Normal Bowel Sounds, No Organomegaly, No Pulsatile Mass, Non Tender, Soft Back: Normal Inspection, No CVA Tenderness, No Vertebral Tenderness Extremity: Normal Capillary Refill, Normal Inspection, Normal Range of Motion, Non Tender, No Calf Tenderness, No Pedal Edema Neurologic/Psychiatric: Alert, No Motor/Sensory Deficits, Abnormal Gait, Depressed Affect, Motor Weakness, Sensory Deficit Skin: Normal Color, Warm/Dry Lymphatic: No Adenopathy Results/Procedures Lab Patient resulted labs reviewed. FIM Transfers Therapy Code Descriptions/Definitions Functional [place] Measure: 0=Not Assessed/NA 4=Minimal Assistance 1=Total Assistance 5=Supervision or Setup 2=Maximal Assistance 6=Modified [place] 3=Moderate Assistance 7=Complete IndependenceSCALE: Activities may be completed with or without assistive devices. 2-Hkrxmipcud-qeoafry completes the activity by him/herself with no assistance from a helper. 5-Set-up or Clean-up Assistance-helper sets up or cleans up; patient completes activity. [place] assists only prior to or following the activity. 4-Supervision or Touching Assistance-helper provides verbal cues and/or touching/steadying and/or contact guard assistance as patient completes activity. Assistance may be provided throughout the activity or intermittently. 3-Partial/Moderate Assistance-helper does LESS THAN HALF the effort. [place] lifts, holds or supports trunk or limbs, but provides less than half the effort. 2-Substantial/Maximal Assistance-helper does MORE THAN HALF the effort. [place] lifts or holds trunk or limbs and provides more than half the effort. 9-Zssgicadx-puzkdt does ALL the effort. Patient does none of the effort to complete the activity. Or, the assistance of 2 or more helpers is required for the patient to complete the activity. If activity was not attempted, code reason: 7-Patient Refused. 9-Not Applicable-not attempted and the patient did not perform the activity before the current illness, exacerbation or injury. 10-Not Attempted due to Environmental Limitations-(lack of equipment, weather restraints, etc.). 88-Not Attempted due to Medical Conditions or Safety Concerns. Roll Left to Right (QC): 3 Sit to Lying (QC): 2 Sit to Stand (QC): 3 Chair/Bhc-gd-Brxvm Xfer(QC): 3 Car Transfer (QC): 3 Gait Training Does the Patient Walk?: Yes Distance: 150' x 2/100' x 2 Walk 10 feet (QC): 3 Walk 50 ft with 2 Turns(QC): 3 Walk 150 ft (QC): 3 Walking 10ft/uneven surface-QC: 88 Gait Assistive Device: FWW Wheelchair Training Does the Pt Use a Wheelchair?: Yes Distance: 150' Wheel 50 ft with 2 turns (QC): 4 Wheel 150 ft (QC): 4 Type of Wheelchair: Manual Stair Training 1 Step (curb) (QC): 88 4 Steps (QC): 88 12 Steps (QC): 88 Balance Picking up an Object (QC): 88 ADL-Treatment Eating (QC): 5 (Set up) Oral Hygiene (QC): 4 (SBA seated at sink to brush teeth.) Shower/Bathe Self (QC): 7 (Pt. already dressed when OT joins treatment session. Pt. declines.) Upper Body Dressing (QC): 4 (PT reports that pt. required SBA to don shirt.) Lower Body Dressing (QC): 3 (Min A standing balance for pant hike. Pt able to thread LEs and perform pant hike with max verbal cues and increased time.) On/Off Footwear (QC): 3 (CGA seated on side of mat. Pt. doffs slipper socks and dons regular socks and shoes. Min assist to position shoes correctly.) Toileting Hygiene (QC): 3 (Mod assist overall. Pt. able to doff pants over hips with cues. Requires enouragement. Requests that therapy does it for him. Requires encouragement to attempt cleansing self and does so. OT cleanses more thoroughly. Pt. able to pull up pants with min assist for balance.) Toilet Transfer (QC): 3 (Min assist) Assessment/Plan Assessment and Plan Assess & Plan/Chief Complaint Assessment: 1. 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 CAD 4. HTN 5. Essential tremor 6. Alcohol use disorder 7. RLE cellulitis 8. Hypercalcemia 10.8 9. Anemia Plan: Fluid restriction Sodium supplementation Supportive care Inpatient rehab protocol 09/24/2021: Increase fluid intake relaxing restriction Stop sodium chloride tablets and urea 09/25/2021: Close monitoring of sodium Supportive care 09/26/2021: Dramatic improvement Continue aggressive therapy (1) Encephalopathy SUSAN MITCHELL DO Sep 26, 2021 12:35
[2021-09-26 19:54] VITALS: BP 118/64
[2021-09-26] MEDS: LORazepam 0.5 MG (ATIVAN) TABLET PO PRN (20:38)
--- NOTE | 2021-09-27 07:13 | PM&R Progress Note ---
Subjective HPI/CC On Admission Date Seen by Provider: Sep 27, 2021 Time Seen by Provider: 12:30 Subjective/Events-last exam 09/27/2021: Patient improving by the day Daughter at the bedside Pressure ulcers are not even stage I placed Allevyn for preventive bilateral elbows and right leg Labs due tomorrow 09/26/2021: Dramatic improvement at bedside Participating in therapy We will monitor closely 09/25/2021: Patient doing well Less confusion Continues with therapy Bowels are moving No urinary issues 09/24/2021: Patient doing pretty well Bowels moved Sodium 138 so we will hold sodium chloride tablets and urea Fluid restriction will be increased to 1800 Bilateral foot pain reported bit unreliable details when he describes it Check meds and labs Review of Systems General: Fatigue, Malaise Neurological: Weakness, Incoordination Objective Exam Vital Signs Vital Signs Date Time Temp Pulse Resp B/P (MAP) Pulse Ox O2 Delivery O2 Flow Rate FiO2 09/27/21 20:52 Room Air 09/27/21 19:40 35.8 91 18 118/67 (84) 96 Capillary Refill : General Appearance: No Apparent Distress, WD/WN, Chronically ill HEENT: PERRL/EOMI, Normal ENT Inspection, Pharynx Normal Neck: Full Range of Motion, Normal Inspection, Non Tender, Supple, Carotid Bruit Respiratory: Chest Non Tender, Lungs Clear, Normal Breath Sounds, No Accessory Muscle Use, No Respiratory Distress Cardiovascular: Regular Rate, Rhythm, No Edema, No Gallop, No JVD, No Murmur, Normal Peripheral Pulses Gastrointestinal: Normal Bowel Sounds, No Organomegaly, No Pulsatile Mass, Non Tender, Soft Back: Normal Inspection, No CVA Tenderness, No Vertebral Tenderness Extremity: Normal Capillary Refill, Normal Inspection, Normal Range of Motion, Non Tender, No Calf Tenderness, No Pedal Edema Neurologic/Psychiatric: Alert, No Motor/Sensory Deficits, Abnormal Gait, Depressed Affect, Motor Weakness, Sensory Deficit Skin: Normal Color, Warm/Dry Lymphatic: No Adenopathy Results/Procedures Lab Patient resulted labs reviewed. FIM Transfers Therapy Code Descriptions/Definitions Functional [place] Measure: 0=Not Assessed/NA 4=Minimal Assistance 1=Total Assistance 5=Supervision or Setup 2=Maximal Assistance 6=Modified [place] 3=Moderate Assistance 7=Complete IndependenceSCALE: Activities may be completed with or without assistive devices. 0-Fgocfjmfpb-ncantzx completes the activity by him/herself with no assistance from a helper. 5-Set-up or Clean-up Assistance-helper sets up or cleans up; patient completes activity. [place] assists only prior to or following the activity. 4-Supervision or Touching Assistance-helper provides verbal cues and/or touching/steadying and/or contact guard assistance as patient completes activity . Assistance may be provided throughout the activity or intermittently. 3-Partial/Moderate Assistance-helper does LESS THAN HALF the effort. [place] lifts, holds or supports trunk or limbs, but provides less than half the effort. 2-Substantial/Maximal Assistance-helper does MORE THAN HALF the effort. [place] lifts or holds trunk or limbs and provides more than half the effort. 0-Foxsbkfyy-rakxdy does ALL the effort. Patient does none of the effort to complete the activity. Or, the assistance of 2 or more helpers is required for the patient to complete the activity. If activity was not attempted, code reason: 7-Patient Refused. 9-Not Applicable-not attempted and the patient did not perform the activity before the current illness, exacerbation or injury. 10-Not Attempted due to Environmental Limitations-(lack of equipment, weather restraints, etc.). 88-Not Attempted due to Medical Conditions or Safety Concerns. Roll Left to Right (QC): 3 Sit to Lying (QC): 2 Sit to Stand (QC): 3 Chair/Etz-uo-Duckj Xfer(QC): 3 Car Transfer (QC): 3 Gait Training Does the Patient Walk?: Yes Distance: 150' x 2/100' x 2 Walk 10 feet (QC): 3 Walk 50 ft with 2 Turns(QC): 3 Walk 150 ft (QC): 3 Walking 10ft/uneven surface-QC: 88 Gait Assistive Device: FWW Wheelchair Training Does the Pt Use a Wheelchair?: Yes Distance: 150' Wheel 50 ft with 2 turns (QC): 4 Wheel 150 ft (QC): 4 Type of Wheelchair: Manual Stair Training 1 Step (curb) (QC): 88 4 Steps (QC): 88 12 Steps (QC): 88 Balance Picking up an Object (QC): 88 ADL-Treatment Eating (QC): 5 (Set up) Oral Hygiene (QC): 4 (SBA seated at sink to brush teeth.) Shower/Bathe Self (QC): 7 (Pt. already dressed when OT joins treatment session. Pt. declines.) Upper Body Dressing (QC): 4 (PT reports that pt. required SBA to don shirt.) Lower Body Dressing (QC): 3 (Min A standing balance for pant hike. Pt able to thread LEs and perform pant hike with max verbal cues and increased time.) On/Off Footwear (QC): 3 (CGA seated on side of mat. Pt. doffs slipper socks and dons regular socks and shoes. Min assist to position shoes correctly.) Toileting Hygiene (QC): 3 (Mod assist overall. Pt. able to doff pants over hips with cues. Requires enouragement. Requests that therapy does it for him. Requires encouragement to attempt cleansing self and does so. OT cleanses more thoroughly. Pt. able to pull up pants with min assist for balance.) Toilet Transfer (QC): 3 (Min assist) Assessment/Plan Assessment and Plan Assess & Plan/Chief Complaint Assessment: 1. 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 CAD 4. HTN 5. Essential tremor 6. Alcohol use disorder 7. RLE cellulitis 8. Hypercalcemia 10.8 9. Anemia Plan: Fluid restriction Sodium supplementation Supportive care Inpatient rehab protocol 09/24/2021: Increase fluid intake relaxing restriction Stop sodium chloride tablets and urea 09/25/2021: Close monitoring of sodium Supportive care 09/26/2021: Dramatic improvement Continue aggressive therapy 09/27/2021: Fluid restriction Supportive care (1) Encephalopathy SUSAN MITCHELL DO Sep 27, 2021 07:13
[2021-09-27 07:30] VITALS: BP 105/61
[2021-09-27] MEDS: PRIMIDONE 50 MG TAB (MYSOLINE) PO SCH ×4 (09:54→20:21)
[2021-09-27] MEDS: ENOXAPARIN 40 MG/0.4 ML (LOVENOX) SYR SQ SCH (09:54)
[2021-09-27] MEDS: DOXYCYCLINE 100 MG (VIBRAMYCIN) TABLET PO SCH ×2 (09:55→17:46)
[2021-09-27] MEDS: PANTOPRAZOLE 40 MG (PROTONIX) TAB PO SCH (09:55)
[2021-09-27] MEDS: DOCUSATE SODIUM 100 MG (COLACE) CAP PO SCH ×2 (09:55→20:21)
[2021-09-27] MEDS: FLUTICASONE NASAL SPRAY (FLONASE) 16 GM BTL NS SCH (09:55)
[2021-09-27] MEDS: OMEGA 3 (FISH OIL) 1000 MG CAP PO SCH ×2 (09:55→20:21)
[2021-09-27] MEDS: SENNA W/DOCUSATE (SENOKOT S) TABLET PO SCH ×2 (09:55→20:22)
[2021-09-27] MEDS: polyethylene glycoL POWDER 17 GM (MIRALAX) PACK PO SCH ×2 (09:56→19:42)
[2021-09-27] MEDS: CLOPIDOGREL 75 MG (PLAVIX) TABLET PO SCH (09:56)
[2021-09-27] MEDS: meTOprolol TARTRATE 25 MG (LOPRESSOR) TABLET PO SCH ×2 (10:00→20:21)
[2021-09-27 10:01] VITALS: BP 93/51
[2021-09-27 19:40] VITALS: BP 118/67
[2021-09-27] MEDS: LORazepam 0.5 MG (ATIVAN) TABLET PO PRN (21:25)
[2021-09-27] MEDS: MELATONIN 3 MG TABLET PO PRN (21:25)
[2021-09-28] MEDS: ACETAMINOPHEN 325 MG TABLET PO PRN (05:11)
[2021-09-28 05:55] LABS: BASOPHILS # (AUTO) 0.1 10^3/uL (0.0-0.1); BASOPHILS % (AUTO) 1 % (0-10); EOSINOPHILS # (AUTO) 0.5 10^3/uL (0.0-0.3); EOSINOPHILS % (AUTO) 6 % (0-10); HEMATOCRIT 31 % (40-54); HEMOGLOBIN 10.3 g/dL (13.3-17.7); LYMPHOCYTES # (AUTO) 3.4 10^3/uL (1.0-4.0); LYMPHOCYTES % (AUTO) 44 % (12-44); MEAN CORPUSCULAR HEMOGLOBIN 31 pg (25-34); MEAN CORPUSCULAR HGB CONC 33 g/dL (32-36); MEAN CORPUSCULAR VOLUME 95 fL (80-99); MEAN PLATELET VOLUME 9.3 fL (9.0-12.2); MONOCYTES # (AUTO) 0.7 10^3/uL (0.0-1.0); MONOCYTES % (AUTO) 9 % (0-12); NEUTROPHILS % (AUTO) 39 % (42-75); PLATELET COUNT 370 10^3/uL (130-400); WHITE BLOOD COUNT 7.6 10^3/uL (4.3-11.0)
[2021-09-28 06:02] LABS: ALBUMIN 3.1 GM/DL (3.2-4.5)
[2021-09-28 06:03] LABS: POTASSIUM 4.3 MMOL/L (3.6-5.0)
[2021-09-28 06:04] LABS: CALCIUM 9.4 MG/DL (8.5-10.1)
[2021-09-28 06:05] LABS: TOTAL PROTEIN 7.3 GM/DL (6.4-8.2)
[2021-09-28 06:07] LABS: BILIRUBIN,TOTAL 0.3 MG/DL (0.1-1.0)
[2021-09-28 06:09] LABS: CREATININE SERUM 1.28 MG/DL (0.60-1.30)
[2021-09-28 07:36] VITALS: BP 121/59
--- NOTE | 2021-09-28 09:00 | Physical Therapy Daily Note ---
PT Daily Note-Current Subjective Patient in bed pre tx, agrees to PT, has unrated pain in right shoulder and sometimes "all over". Will be co-treating with OT due to poor patient mobility, strength, endurance, poor coordination and safety awareness, coordinate UE and LE with activity, safety and reduce risk of falls. Appearance Patient in therapy gym post tx, will continue for a bit with OT. Mental Status Patient Orientation: Person, Confused, Place Transfers SCALE: Activities may be completed with or without assistive devices. 4-Zvqxuxccmb-camxmsh completes the activity by him/herself with no assistance from a helper. 5-Set-up or Clean-up Assistance-helper sets up or cleans up; patient completes activity. [place] assists only prior to or following the activity. 4-Supervision or Touching Assistance-helper provides verbal cues and/or touching/steadying and/or contact guard assistance as patient completes activity. Assistance may be provided throughout the activity or intermittently. 3-Partial/Moderate Assistance-helper does LESS THAN HALF the effort. [place] lifts, holds or supports trunk or limbs, but provides less than half the effort. 2-Substantial/Maximal Assistance-helper does MORE THAN HALF the effort. [place] lifts or holds trunk or limbs and provides more than half the effort. 7-Tactptqjg-fhvyum does ALL the effort. Patient does none of the effort to complete the activity. Or, the assistance of 2 or more helpers is required for the patient to complete the activity. If activity was not attempted, code reason: 7-Patient Refused. 9-Not Applicable-not attempted and the patient did not perform the activity before the current illness, exacerbation or injury. 10-Not Attempted due to Environmental Limitations-(lack of equipment, weather restraints, etc.). 88-Not Attempted due to Medical Conditions or Safety Concerns. Roll Left & Right (QC): 6 Lying to Sitting/Side of Bed(Q: 4 Sit to Stand (QC): 3 Chair/Bie-kp-Sedia Xfer(QC): 3 Min assist for balance during sit to stand and transfers, patient often needs cues for safety and hand positioning. Patient has poor balance and poor safety awareness, states "You don't need that" when therapist is putting his gait belt on. Explained to patient why we need to use the gait belt. Weight Bearing Full Weight Bearing Full Weight Bearing Gait Training Distance: 50', 100' Walk 10 feet (QC): 3 Walk 50 ft with 2 Turns(QC): 3 Gait Assistive Device: FWW slow ambulation, very shaky and unsteady, some scissoring, left foot turns out Exercises standing activity with rings and pins to work on trunk stability and balance in standing x4 Treatments PT performed standing during ADL's and dressing, ambulation, standing balance and trunk strength, OT performed ADL's and dressing, UE activity, UE positioning and safety during activity Assessment Current Status: Poor Progress patient remains very unsteady and has poor safety awareness PT Short Term Goals Short Term Goals Time Frame: Sep 30, 2021 Roll Left & Right: 4 Sit to lyin (Balaji) Lying to sitting on side of be: 3 (Balaji) Sit to stand: 3 (Mando) Chair/zoi-fb-ojpcb transfer: 3 (Balaji) Walk 10 feet: 3 (mnA) PT Public Health Engineer Goals Public Health Engineer Goals PT Public Health Engineer Goals Time Frame: Oct 14, 2021 Roll Left & Right (QC): 6 Sit to Lying (QC): 4 (SBA) Lying-Sitting on Side/Bed(QC): 4 (SBA) Sit to Stand (QC): 4 (CGA) Chair/Svz-lb-Sjqxp Xfer(QC): 4 (CGA) Toilet Transfer (QC): 4 (CGA) Car Transfer (QC): 3 (Balaji) Does the Patient Walk: Yes Walk 10 feet (QC): 4 (CGA) Walk 50ft with 2 Turns (QC): 4 (CGA) Walk 150 ft (QC): 4 (CGA) Walking 10ft on Uneven Surface: 3 (Balaji) 1 Step (curb) (QC): 3 (Balaji) 4 Steps (QC): 3 (Balaji) 12 Steps (QC): 88 Picking up an Object (QC): 3 (Balaji) Wheel 50 feet with 2 turns (QC: 6 Wheel 150 feet: 6 PT Plan Problem List Problem List: Activity Tolerance, Functional Strength, Safety, Balance, Gait, Transfer, Bed Mobility, ROM Treatment/Plan Treatment Plan: Continue Plan of Care Treatment Plan: Bed Mobility, Education, Functional Activity Johnathan, Functional Strength, Group Therapy, Gait, Safety, Therapeutic Exercise, Transfers Treatment Duration: Oct 14, 2021 Frequency: At least 5 of 7 days/Wk (IRF) Estimated Hrs Per Day: 1.5 hours per day Patient and/or Family Agrees t: Yes Safety Risks/Education Patient Education: Gait Training, Transfer Techniques, Correct Positioning, Safety Issues Teaching Recipient: Patient Teaching Methods: Demonstration, Discussion Response to Teaching: Reinforcement Needed Time/GCodes Time In: 0800 Time Out: 0900 Total Billed Treatment Time: 60 Total Billed Treatment 1 visit EX 30' FA 30' SANFORD ALEJANDRE PT Sep 28, 2021 09:00
[2021-09-28] MEDS: DOXYCYCLINE 100 MG (VIBRAMYCIN) TABLET PO SCH ×2 (09:10→17:52)
[2021-09-28] MEDS: OMEGA 3 (FISH OIL) 1000 MG CAP PO SCH ×2 (09:10→21:10)
[2021-09-28] MEDS: PRIMIDONE 50 MG TAB (MYSOLINE) PO SCH ×4 (09:10→21:10)
[2021-09-28] MEDS: PANTOPRAZOLE 40 MG (PROTONIX) TAB PO SCH (09:11)
[2021-09-28] MEDS: CLOPIDOGREL 75 MG (PLAVIX) TABLET PO SCH (09:11)
[2021-09-28] MEDS: meTOprolol TARTRATE 25 MG (LOPRESSOR) TABLET PO SCH ×2 (09:11→21:10)
[2021-09-28] MEDS: ENOXAPARIN 40 MG/0.4 ML (LOVENOX) SYR SQ SCH (09:11)
--- NOTE | 2021-09-28 09:13 | Occupational Ther Daily Note ---
OT Current Status-Daily Note Subjective Pt was lying supine in bed sleeping upon OT/PT arrival. Pt refused a shower. Pt agreed to tx session on this date. Mental Status/Objective Patient Orientation: Person, Place, Time, Situation ADL-Treatment Therapy Code Descriptions/Definitions Functional [place] Measure: 0=Not Assessed/NA 4=Minimal Assistance 1=Total Assistance 5=Supervision or Setup 2=Maximal Assistance 6=Modified [place] 3=Moderate Assistance 7=Complete IndependenceSCALE: Activities may be completed with or without assistive devices. 7-Siqitrpczq-imlmqba completes the activity by him/herself with no assistance from a helper. 5-Set-up or Clean-up Assistance-helper sets up or cleans up; patient completes activity. [place] assists only prior to or following the activity. 4-Supervision or Touching Assistance-helper provides verbal cues and/or touching/steadying and/or contact guard assistance as patient completes activity. Assistance may be provided throughout the activity or intermittently. 3-Partial/Moderate Assistance-helper does LESS THAN HALF the effort. [place] lifts, holds or supports trunk or limbs, but provides less than half the effort. 2-Substantial/Maximal Assistance-helper does MORE THAN HALF the effort. [place] lifts or holds trunk or limbs and provides more than half the effort. 9-Swtmkqiuh-ykdblc does ALL the effort. Patient does none of the effort to complete the activity. Or, the assistance of 2 or more helpers is required for the patient to complete the activity. If activity was not attempted, code reason: 7-Patient Refused. 9-Not Applicable-not attempted and the patient did not perform the activity before the current illness, exacerbation or injury. 10-Not Attempted due to Environmental Limitations-(lack of equipment, weather restraints, etc.). 88-Not Attempted due to Medical Conditions or Safety Concerns. Eating (QC): 6 (Pt was IND for task. ) Oral Hygiene (QC): 4 (Pt required CGA when standing sinkside, requiring VC's for sequencing. ) Shower/Bathe Self (QC): 7 Upper Body Dressing (QC): 5 (Pt required set up, performed EOB. ) Lower Body Dressing (QC): 4 (Pt required CGA when standing for task for safety. ) On/Off Footwear: 7 Toileting Hygiene (QC): 4 (Pt required CGA while standing to urinate, pt was leaning back during task. ) Toilet Transfer (QC): 4 (Pt required CGA when standing.) Other Treatment [id number] OT/PT cotreat due to skill of 2 clinicians required which a technical account executive could not perform in order to coordinate UE/LEs, decrease fall risk, and due to pt's limitations in standing balance, transfers/mobility, problem solving, sequencing, and safety awareness. OT focused on UE placement, cues for sequencing and safety and ADLs, PT focused on LE placement, gross overall movements, and transfers/mobility. Pt was lying supine in bed sleeping upon OT/PT arrival. Pt performed bed mobility from supine to EOB, IND. Pt performed UBD and LBD. Pt transferred sit to stand w/ FWW at CGA, then went into bathroom for oral care and toileting. Pt performed functional mobility w/ FWW to therapy gym, required x1 seated rest break. Pt participated while standing w/ FWW in ring arch activity, to support ROM, FMC, sequencing, crossing midline, and standing balance for ADL function, at CGA for safety, seated rest break after 2nd and 4th round: Round 1: R UE medium height ROM, R to L. Round 2: L UE medium height ROM, L to R. Pt complained of R shoulder ache, decreased ROM. Round 3: R UE low height ROM, R to L , 1 lb weighted wrist weights. Round 4: L UE low height ROM, L to R , 1 lb weighted wrist weights. Pt stated this lower level felt better. Pt participated while standing w/ FWW in wooden peg activity, to support ROM, FMC, finger dexterity, sequencing, crossing midline, reaching, and standing balance for ADL function, at CGA for safety, 1 lb weighted wrist weights, seated rest break after 2nd and 4th round: Round 1: R UE placing bigger pegs onto peg board 16/16 crossing midline to retrieve pegs. Round 2: L UE placing smaller pegs into bigger pegs 14/14 crossing midline to retrieve pegs. Round 3: L UE placing bigger pegs onto peg board 16/16 crossing midline to retrieve pegs. Round 4: R UE placing smaller pegs into bigger pegs 14/14 crossing midline to retrieve pegs. [id number] OT tx session. Pt w/c mobility from therapy gym to room, required x4 rest breaks, w/ VC's. Pt transferred from w/c to chair w/ FWW at [facility] for safety. Pt was educated on thera-band exercises and the importance of strength building w/ BUE's, and given a handout. Pt was educated in rehab process. Pt breakfast tray arrived, pt was able to begin eating. Post tx session, pt was seated in chair, beginning to eat breakfast, call light within reach, and all needs met. Pt required consistent encouragement during entire tx session for initiation and continual participation. Education OT Patient Education: Correct positioning, Energy conservation, Exercise program, Home exercise program, Progress toward Goal/Update tx plan, Purpose of tx/functional activities, Safety issues, W/C management Teaching Recipient: Patient Teaching Methods: Demonstration, Handout, Discussion Response to Teaching: Verbalize Understanding, Return Demonstration, Reinforcement Needed OT Short Term Goals Short Term Goals Time Frame: Oct 07, 2021 Oral hygiene: 5 Shower/bathe self: 4 Lower body dressin OT Preparation Department Supervisor Goals Preparation Department Supervisor Goals Time Frame: Oct 16, 2021 Eating (QC): 6 Oral Hygiene (QC): 6 Toileting Hygiene (QC): 6 Shower/Bathe Self (QC): 4 Upper Body Dressing (QC): 5 Lower Body Dressing (QC): 4 On/Off Footwear (QC): 4 Additional Goals: 1-Demonstrate ADL Tasks, 2-Verbalize Understanding, 3- ImproveStrength/Johnathan 1=Demonstrate adherence to instructed precautions during ADL tasks. 2=Patient will verbalize/demonstrate understanding of assistive devices/hernandez fications for ADL. 3=Patient will improve strength/tolerance for activity to enable patient to perform ADL's. OT Education/Plan Problem List/Assessment Assessment: Decreased Activ Tolerance, Decreased Safety Aware, Decreased UE Strength, Impaired Cognition, Impaired Coordination, Impaired Funct Balance, Impaired I ADL's, Impaired Self-Care Skills Discharge Recommendations Plan/Recommendations: Continue POC Treatment Plan/Plan of Care Patient would benefit from OT for education, treatment and training to promote independence in ADL's, mobility, safety and/or upper extremity function for ADL's. Plan of Care: ADL Retraining, Functional Mobility, Group Exercise/Act as Ind, UE Funct Exercise/Act Treatment Duration: Oct 16, 2021 Frequency: At least 5 of 7 days/Wk (IRF) Estimated Hrs Per Day: 1.5 hours per day Rehab Potential: Fair Time/GCodes Start Time: 08:00 Stop Time: 09:15 Total Time Billed (hr/min): 75 Billed Treatment Time [place] 08:00 - 09:00, OT Tx [id number] 1 Visit, ADL 2 (25'), FA 3 (50') LIZANDRO HAM OT Sep 28, 2021 09:13
[2021-09-28] MEDS: polyethylene glycoL POWDER 17 GM (MIRALAX) PACK PO SCH ×2 (09:17→21:16)
[2021-09-28] MEDS: DOCUSATE SODIUM 100 MG (COLACE) CAP PO SCH ×2 (09:17→21:10)
[2021-09-28] MEDS: FLUTICASONE NASAL SPRAY (FLONASE) 16 GM BTL NS SCH (09:17)
[2021-09-28] MEDS: SENNA W/DOCUSATE (SENOKOT S) TABLET PO SCH ×2 (09:17→21:10)
--- NOTE | 2021-09-28 10:48 | PM&R Progress Note ---
Subjective HPI/CC On Admission Date Seen by Provider: Sep 28, 2021 Time Seen by Provider: 10:45 Subjective/Events-last exam 09/28/2021: Patient seems to be doing well Improving every day Updated Concerned about his appetite Supportive care will continue 09/27/2021: Patient improving by the day Daughter at the bedside Pressure ulcers are not even stage I placed Allevyn for preventive bilateral elbows and right leg Labs due tomorrow 09/26/2021: Dramatic improvement at bedside Participating in therapy We will monitor closely 09/25/2021: Patient doing well Less confusion Continues with therapy Bowels are moving No urinary issues 09/24/2021: Patient doing pretty well Bowels moved Sodium 138 so we will hold sodium chloride tablets and urea Fluid restriction will be increased to 1800 Bilateral foot pain reported bit unreliable details when he describes it Check meds and labs Review of Systems General: Fatigue, Malaise Objective Exam Vital Signs Vital Signs Date Time Temp Pulse Resp B/P (MAP) Pulse Ox O2 Delivery O2 Flow Rate FiO2 09/28/21 20:25 97 Room Air 09/28/21 19:50 37.0 94 18 118/74 (89) Capillary Refill : General Appearance: No Apparent Distress, WD/WN, Chronically ill HEENT: PERRL/EOMI, Normal ENT Inspection, Pharynx Normal Neck: Full Range of Motion, Normal Inspection, Non Tender, Supple, Carotid Bruit Respiratory: Chest Non Tender, Lungs Clear, Normal Breath Sounds, No Accessory Muscle Use, No Respiratory Distress Cardiovascular: Regular Rate, Rhythm, No Edema, No Gallop, No JVD, No Murmur, Normal Peripheral Pulses Gastrointestinal: Normal Bowel Sounds, No Organomegaly, No Pulsatile Mass, Non Tender, Soft Back: Normal Inspection, No CVA Tenderness, No Vertebral Tenderness Extremity: Normal Capillary Refill, Normal Inspection, Normal Range of Motion, Non Tender, No Calf Tenderness, No Pedal Edema Neurologic/Psychiatric: Alert, No Motor/Sensory Deficits, Abnormal Gait, Depressed Affect, Motor Weakness, Sensory Deficit Skin: Normal Color, Warm/Dry Lymphatic: No Adenopathy Results/Procedures Lab Laboratory Tests 09/28/21 05:20 Patient resulted labs reviewed. FIM Transfers Therapy Code Descriptions/Definitions Functional [place] Measure: 0=Not Assessed/NA 4=Minimal Assistance 1=Total Assistance 5=Supervision or Setup 2=Maximal Assistance 6=Modified [place] 3=Moderate Assistance 7=Complete IndependenceSCALE: Activities may be completed with or without assistive devices. 9-Tpqkpmnyym-moazxmy completes the activity by him/herself with no assistance from a helper. 5-Set-up or Clean-up Assistance-helper sets up or cleans up; patient completes activity. [place] assists only prior to or following the activity. 4-Supervision or Touching Assistance-helper provides verbal cues and/or touching/steadying and/or contact guard assistance as patient completes activity. Assistance may be provided throughout the activity or intermittently. 3-Partial/Moderate Assistance-helper does LESS THAN HALF the effort. [place] lifts, holds or supports trunk or limbs, but provides less than half the effort. 2-Substantial/Maximal Assistance-helper does MORE THAN HALF the effort. [place] lifts or holds trunk or limbs and provides more than half the effort. 0-Wfwhsidft-khwrai does ALL the effort. Patient does none of the effort to complete the activity. Or, the assistance of 2 or more helpers is required for the patient to complete the activity. If activity was not attempted, code reason: 7-Patient Refused. 9-Not Applicable-not attempted and the patient did not perform the activity before the current illness, exacerbation or injury. 10-Not Attempted due to Environmental Limitations-(lack of equipment, weather restraints, etc.). 88-Not Attempted due to Medical Conditions or Safety Concerns. Roll Left to Right (QC): 6 Sit to Lying (QC): 2 Sit to Stand (QC): 3 Chair/Gmv-ci-Acsdv Xfer(QC): 3 Car Transfer (QC): 3 Gait Training Does the Patient Walk?: Yes Distance: 50', 100' Walk 10 feet (QC): 3 Walk 50 ft with 2 Turns(QC): 3 Walk 150 ft (QC): 3 Walking 10ft/uneven surface-QC: 88 Gait Assistive Device: FWW Wheelchair Training Does the Pt Use a Wheelchair?: Yes Distance: 150' Wheel 50 ft with 2 turns (QC): 4 Wheel 150 ft (QC): 4 Type of Wheelchair: Manual Stair Training 1 Step (curb) (QC): 88 4 Steps (QC): 88 12 Steps (QC): 88 Balance Picking up an Object (QC): 88 ADL-Treatment Eating (QC): 6 (Pt was IND for task. ) Oral Hygiene (QC): 4 (Pt required CGA when standing sinkside, requiring VC's for sequencing. ) Shower/Bathe Self (QC): 7 Upper Body Dressing (QC): 5 (Pt required set up, performed EOB. ) Lower Body Dressing (QC): 4 (Pt required CGA when standing for task for safety. ) On/Off Footwear (QC): 7 Toileting Hygiene (QC): 4 (Pt required CGA while standing to urinte, pt was leaning back during task. ) Toilet Transfer (QC): 4 (Pt required CGA when standing.) Assessment/Plan Assessment and Plan Assess & Plan/Chief Complaint Assessment: 1. 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 CAD 4. HTN 5. Essential tremor 6. Alcohol use disorder 7. RLE cellulitis 8. Hypercalcemia 10.8 9. Anemia Plan: Fluid restriction Sodium supplementation Supportive care Inpatient rehab protocol 09/24/2021: Increase fluid intake relaxing restriction Stop sodium chloride tablets and urea 09/25/2021: Close monitoring of sodium Supportive care 09/26/2021: Dramatic improvement Continue aggressive therapy 09/27/2021: Fluid restriction Supportive care 09/28/2021: DC fluid restriction Continue aggressive therapy (1) Encephalopathy SUSAN MITCHELL DO Sep 28, 2021 10:48
--- NOTE | 2021-09-28 10:53 | Speech Therapy Daily Note ---
Speech Daily Progress Note Subjective Date Seen by Provider: Sep 28, 2021 Time Seen by Provider: 00:30 Patient was resting in his recliner following his PT session this morning. The patient was very lethargic and difficult to engage. The patient's arrived toward the end of the session. Patient stated his daughter came to visit yesterday which he really enjoyed. Objective Patient completed a series of memory tasks related to the past 48 hrs with 90% given minimal cues. Assessment Assessment Current Status: Good Progress Treatment Plan Continue Plan of Care Speech Short Term Goals Short Term Goals Short Term Goals 1) Patient will complete memory tasks related to his daily needs at 80% or greater with minimal cues. 2) Patient will complete safety awareness tasks related to his daily needs at 80% or greater with minimal cues. 3) Patient will complete problem solving tasks related to his daily needs at 80% or greater with minimal cues. Speech Medical Payment Poster Goals Medical Payment Poster Goals The patient will improve functional abilities in order to be safe and independent in his living environment. Speech-Plan Patient/Family Goals Patient/Family Goals: The patient plans on returning to his home where he lives with his . Treatment Plan Speech Therapy Treatment Plan: Continue Plan of Care Treatment Duration: Sep 24, 2021 Frequency: 5 times per week Estimated Hrs Per Day: .5 hour per day Rehab Potential: Fair Barriers to Learning: Patient's recent medical status, decreased cognitive function Pt/Family Agrees to Plan: Yes Safety Risks/Education Teaching Recipient: Patient Teaching Methods: Demonstration, Discussion Response to Teaching: Verbalize Understanding, Return Demonstration Education Topics Provided: Continued safety and communication Time Speech Therapy Time In: 10:00 Speech Therapy Time Out: 10:30 Total Billed Time: 30 Billed Treatment Time 1, SHAKA Novak Sep 28, 2021 10:52
--- NOTE | 2021-09-28 14:47 | Physical Therapy Daily Note ---
PT Daily Note-Current Subjective Patient in recliner pre tx, agrees to PT, has moderate low back pain, states he doesn't need pain meds. Appearance Patient in recliner post tx with nurse call, phone, tray, chair alarm on. Mental Status Patient Orientation: Person, Place Transfers SCALE: Activities may be completed with or without assistive devices. 3-Sebibjgwhu-tjtbyth completes the activity by him/herself with no assistance from a helper. 5-Set-up or Clean-up Assistance-helper sets up or cleans up; patient completes activity. [place] assists only prior to or following the activity. 4-Supervision or Touching Assistance-helper provides verbal cues and/or touching/steadying and/or contact guard assistance as patient completes activity. Assistance may be provided throughout the activity or intermittently. 3-Partial/Moderate Assistance-helper does LESS THAN HALF the effort. [place] lifts, holds or supports trunk or limbs, but provides less than half the effort. 2-Substantial/Maximal Assistance-helper does MORE THAN HALF the effort. [place] lifts or holds trunk or limbs and provides more than half the effort. 2-Ztevfitwt-thzwed does ALL the effort. Patient does none of the effort to complete the activity. Or, the assistance of 2 or more helpers is required for the patient to complete the activity. If activity was not attempted, code reason: 7-Patient Refused. 9-Not Applicable-not attempted and the patient did not perform the activity before the current illness, exacerbation or injury. 10-Not Attempted due to Environmental Limitations-(lack of equipment, weather restraints, etc.). 88-Not Attempted due to Medical Conditions or Safety Concerns. Sit to Stand (QC): 4 Chair/Dkp-sp-Wudrh Xfer(QC): 4 Weight Bearing Full Weight Bearing Full Weight Bearing Gait Training Distance: 150'x2 Walk 10 feet (QC): 4 Walk 50 ft with 2 Turns(QC): 4 Walk 150 ft (QC): 4 Gait Persons Needed: 1 Gait Assistive Device: FWW patient ambulates slowly, is unsteady but doesn't have a francesca LOB, uncoordinated steps Treatments transfers, ambulation Assessment Current Status: Fair Progress improving endurance but still unsteady ambulation PT Short Term Goals Short Term Goals Time Frame: Sep 30, 2021 Roll Left & Right: 4 Sit to lyin (Balaji) Lying to sitting on side of be: 3 (Balaji) Sit to stand: 3 (Mando) Chair/szy-oe-rzqjs transfer: 3 (Balaji) Walk 10 feet: 3 (mnA) PT Fish Hatchery Specialist Goals Senior Living Goals PT Senior Living Goals Time Frame: Oct 14, 2021 Roll Left & Right (QC): 6 Sit to Lying (QC): 4 (SBA) Lying-Sitting on Side/Bed(QC): 4 (SBA) Sit to Stand (QC): 4 (CGA) Chair/Uwi-ew-Txmzy Xfer(QC): 4 (CGA) Toilet Transfer (QC): 4 (CGA) Car Transfer (QC): 3 (Balaji) Does the Patient Walk: Yes Walk 10 feet (QC): 4 (CGA) Walk 50ft with 2 Turns (QC): 4 (CGA) Walk 150 ft (QC): 4 (CGA) Walking 10ft on Uneven Surface: 3 (Balaji) 1 Step (curb) (QC): 3 (Balaji) 4 Steps (QC): 3 (Balaji) 12 Steps (QC): 88 Picking up an Object (QC): 3 (Balaji) Wheel 50 feet with 2 turns (QC: 6 Wheel 150 feet: 6 PT Plan Problem List Problem List: Activity Tolerance, Functional Strength, Safety, Balance, Gait, Transfer, Bed Mobility, ROM Treatment/Plan Treatment Plan: Continue Plan of Care Treatment Plan: Bed Mobility, Education, Functional Activity Johnathan, Functional Strength, Group Therapy, Gait, Safety, Therapeutic Exercise, Transfers Treatment Duration: Oct 14, 2021 Frequency: At least 5 of 7 days/Wk (IRF) Estimated Hrs Per Day: 1.5 hours per day Patient and/or Family Agrees t: Yes Safety Risks/Education Patient Education: Gait Training, Transfer Techniques, Correct Positioning, Safety Issues Teaching Recipient: Patient Teaching Methods: Demonstration, Discussion Response to Teaching: Reinforcement Needed Time/GCodes Time In: 1430 Time Out: 1445 Total Billed Treatment Time: 15 Total Billed Treatment 1 visit GT 15' SANFORD ALEJANDRE PT Sep 28, 2021 14:47
--- NOTE | 2021-09-28 15:03 | Progress Note ---
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 OT: Requires minimal assistance with hygiene, eating, and dressing activities. Good progress with good prognosis PT: Requires min-mod assistance with transfers, slow unsteady gait, requires walker for ambulation. Demonstrates fair progress with fair prognosis. ST: Demonstrates fair ability with temporal and memory tasks. Good progress with fair prognosis. Plan: Review disposition on 09/30. Pt preferably able to ambulate and transfer independently at time of discharge. Possible need for home health assistance. LOIS MITCHELL DO 09/29/21 0501: Supervisory-Addendum Brief Verification & Attestation Participated in pt care: history, MDM, physical Personally performed: exam, history, MDM, supervision of care Care discussed with: Medical Student Procedures: n/a Results interpretation: Verified all documentation Verification and Attestation of Medical Student E/M Service A medical student performed and documented this service in my presence. I reviewed and verified all information documented by the medical student and made modifications to such information, when appropriate. I personally performed the physical exam and medical decision making. Lois Mitchell, Sep 29, 2021,05:01 NITO SCOTT MED STUDENT Sep 28, 2021 15:03 LOIS MITCHELL DO Sep 29, 2021 05:01
[2021-09-28 19:50] VITALS: BP 118/74
[2021-09-28] MEDS: MELATONIN 3 MG TABLET PO PRN (21:10)
[2021-09-28] MEDS: LORazepam 0.5 MG (ATIVAN) TABLET PO PRN (21:15)
[2021-09-29 07:49] VITALS: BP 120/62
[2021-09-29] MEDS: OMEGA 3 (FISH OIL) 1000 MG CAP PO SCH ×2 (08:02→20:16)
[2021-09-29] MEDS: CLOPIDOGREL 75 MG (PLAVIX) TABLET PO SCH (08:02)
[2021-09-29] MEDS: SENNA W/DOCUSATE (SENOKOT S) TABLET PO SCH ×2 (08:02→20:15)
[2021-09-29] MEDS: PRIMIDONE 50 MG TAB (MYSOLINE) PO SCH ×4 (08:02→20:16)
[2021-09-29] MEDS: meTOprolol TARTRATE 25 MG (LOPRESSOR) TABLET PO SCH ×2 (08:02→20:16)
[2021-09-29] MEDS: PANTOPRAZOLE 40 MG (PROTONIX) TAB PO SCH (08:02)
[2021-09-29] MEDS: DOXYCYCLINE 100 MG (VIBRAMYCIN) TABLET PO SCH ×2 (08:02→17:03)
[2021-09-29] MEDS: ENOXAPARIN 40 MG/0.4 ML (LOVENOX) SYR SQ SCH (08:02)
[2021-09-29] MEDS: DOCUSATE SODIUM 100 MG (COLACE) CAP PO SCH ×2 (08:02→20:16)
[2021-09-29] MEDS: FLUTICASONE NASAL SPRAY (FLONASE) 16 GM BTL NS SCH (08:03)
[2021-09-29] MEDS: polyethylene glycoL POWDER 17 GM (MIRALAX) PACK PO SCH ×2 (08:42→19:31)
--- NOTE | 2021-09-29 09:05 | PM&R Progress Note ---
Subjective HPI/CC On Admission Date Seen by Provider: Sep 29, 2021 Time Seen by Provider: 09:15 Subjective/Events-last exam 09/29/2021: Patient doing well Took a shower today Elbows look good DC the fluid restriction and doing well Wants to go to [facility] swing bed 09/28/2021: Patient seems to be doing well Improving every day Updated Concerned about his appetite Supportive care will continue 09/27/2021: Patient improving by the day Daughter at the bedside Pressure ulcers are not even stage I placed Allevyn for preventive bilateral elbows and right leg Labs due tomorrow 09/26/2021: Dramatic improvement at bedside Participating in therapy We will monitor closely 09/25/2021: Patient doing well Less confusion Continues with therapy Bowels are moving No urinary issues 09/24/2021: Patient doing pretty well Bowels moved Sodium 138 so we will hold sodium chloride tablets and urea Fluid restriction will be increased to 1800 Bilateral foot pain reported bit unreliable details when he describes it Check meds and labs Review of Systems General: Fatigue, Malaise Neurological: Weakness, Confusion Objective Exam Vital Signs Vital Signs Date Time Temp Pulse Resp B/P (MAP) Pulse Ox O2 Delivery O2 Flow Rate FiO2 09/29/21 20:10 Room Air 09/29/21 20:07 37.4 80 20 113/66 (82) 98 Capillary Refill : General Appearance: No Apparent Distress, WD/WN, Chronically ill HEENT: PERRL/EOMI, Normal ENT Inspection, Pharynx Normal Neck: Full Range of Motion, Normal Inspection, Non Tender, Supple, Carotid Bruit Respiratory: Chest Non Tender, Lungs Clear, Normal Breath Sounds, No Accessory Muscle Use, No Respiratory Distress Cardiovascular: Regular Rate, Rhythm, No Edema, No Gallop, No JVD, No Murmur, Normal Peripheral Pulses Gastrointestinal: Normal Bowel Sounds, No Organomegaly, No Pulsatile Mass, Non Tender, Soft Back: Normal Inspection, No CVA Tenderness, No Vertebral Tenderness Extremity: Normal Capillary Refill, Normal Inspection, Normal Range of Motion, Non Tender, No Calf Tenderness, No Pedal Edema Neurologic/Psychiatric: Alert, No Motor/Sensory Deficits, Abnormal Gait, Depressed Affect, Motor Weakness, Sensory Deficit Skin: Normal Color, Warm/Dry Lymphatic: No Adenopathy Results/Procedures Lab Patient resulted labs reviewed. FIM Transfers Therapy Code Descriptions/Definitions Functional Minter Measure: 0=Not Assessed/NA 4=Minimal Assistance 1=Total Assistance 5=Supervision or Setup 2=Maximal Assistance 6=Modified Minter 3=Moderate Assistance 7=Complete IndependenceSCALE: Activities may be completed with or without assistive devices. 3-Tmygrihggk-yrnclom completes the activity by him/herself with no assistance from a helper. 5-Set-up or Clean-up Assistance-helper sets up or cleans up; patient completes activity. [place] assists only prior to or following the activity. 4-Supervision or Touching Assistance-helper provides verbal cues and/or touching/steadying and/or contact guard assistance as patient completes activity. Assistance may be provided throughout the activity or intermittently. 3-Partial/Moderate Assistance-helper does LESS THAN HALF the effort. [place] lifts, holds or supports trunk or limbs, but provides less than half the effort. 2-Substantial/Maximal Assistance-helper does MORE THAN HALF the effort. [place] lifts or holds trunk or limbs and provides more than half the effort. 3-Ipitxfgic-fjeocm does ALL the effort. Patient does none of the effort to complete the activity. Or, the assistance of 2 or more helpers is required for the patient to complete the activity. If activity was not attempted, code reason: 7-Patient Refused. 9-Not Applicable-not attempted and the patient did not perform the activity before the current illness, exacerbation or injury. 10-Not Attempted due to Environmental Limitations-(lack of equipment, weather restraints, etc.). 88-Not Attempted due to Medical Conditions or Safety Concerns. Roll Left to Right (QC): 6 Sit to Lying (QC): 2 Sit to Stand (QC): 4 Chair/Nta-hy-Bwjht Xfer(QC): 4 Car Transfer (QC): 3 Gait Training Does the Patient Walk?: Yes Distance: 150'x2 Walk 10 feet (QC): 4 Walk 50 ft with 2 Turns(QC): 4 Walk 150 ft (QC): 4 Walking 10ft/uneven surface-QC: 88 Gait Persons Needed: 1 Gait Assistive Device: FWW Wheelchair Training Does the Pt Use a Wheelchair?: Yes Distance: 150' Wheel 50 ft with 2 turns (QC): 4 Wheel 150 ft (QC): 4 Type of Wheelchair: Manual Stair Training 1 Step (curb) (QC): 88 4 Steps (QC): 88 12 Steps (QC): 88 Balance Picking up an Object (QC): 88 ADL-Treatment Eating (QC): 6 (Pt was IND for task. ) Oral Hygiene (QC): 4 (Pt required CGA when standing sinkside, requiring VC's for sequencing. ) Shower/Bathe Self (QC): 7 Upper Body Dressing (QC): 5 (Pt required set up, performed EOB. ) Lower Body Dressing (QC): 4 (Pt required CGA when standing for task for safety. ) On/Off Footwear (QC): 7 Toileting Hygiene (QC): 4 (Pt required CGA while standing to urinate, pt was leaning back during task. ) Toilet Transfer (QC): 4 (Pt required CGA when standing.) Assessment/Plan Assessment and Plan Assess & Plan/Chief Complaint Assessment: 1. 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 CAD 4. HTN 5. Essential tremor 6. Alcohol use disorder 7. RLE cellulitis 8. Hypercalcemia 10.8 9. Anemia Plan: Fluid restriction Sodium supplementation Supportive care Inpatient rehab protocol 09/24/2021: Increase fluid intake relaxing restriction Stop sodium chloride tablets and urea 09/25/2021: Close monitoring of sodium Supportive care 09/26/2021: Dramatic improvement Continue aggressive therapy 09/27/2021: Fluid restriction Supportive care 09/28/2021: DC fluid restriction Continue aggressive therapy 09/29/2021: Much improved status Discharge plan to [facility] (1) Encephalopathy SUSAN MITCHELL DO Sep 29, 2021 09:05
--- NOTE | 2021-09-29 09:17 | Occupational Ther Daily Note ---
OT Current Status-Daily Note Subjective Pt was seated in chair upon OT/PT arrival. Pt was present during tx session. Pt stated he was having a bad day. Pt stated pain was high but did not want any pain medication since he feels it does not help him. Pt agreed to tx session on this date. Mental Status/Objective Patient Orientation: Person, Place, Time, Situation ADL-Treatment Therapy Code Descriptions/Definitions Functional [place] Measure: 0=Not Assessed/NA 4=Minimal Assistance 1=Total Assistance 5=Supervision or Setup 2=Maximal Assistance 6=Modified [place] 3=Moderate Assistance 7=Complete IndependenceSCALE: Activities may be completed with or without assistive devices. 3-Imcurymxfw-dhamkcd completes the activity by him/herself with no assistance from a helper. 5-Set-up or Clean-up Assistance-helper sets up or cleans up; patient completes activity. [place] assists only prior to or following the activity. 4-Supervision or Touching Assistance-helper provides verbal cues and/or touching/steadying and/or contact guard assistance as patient completes activity. Assistance may be provided throughout the activity or intermittently. 3-Partial/Moderate Assistance-helper does LESS THAN HALF the effort. [place] lifts, holds or supports trunk or limbs, but provides less than half the effort. 2-Substantial/Maximal Assistance-helper does MORE THAN HALF the effort. [place] lifts or holds trunk or limbs and provides more than half the effort. 1-Qujugtgdt-fchwoz does ALL the effort. Patient does none of the effort to complete the activity. Or, the assistance of 2 or more helpers is required for the patient to complete the activity. If activity was not attempted, code reason: 7-Patient Refused. 9-Not Applicable-not attempted and the patient did not perform the activity before the current illness, exacerbation or injury. 10-Not Attempted due to Environmental Limitations-(lack of equipment, weather restraints, etc.). 88-Not Attempted due to Medical Conditions or Safety Concerns. Eating (QC): 6 (Pt performs IND, per pt report. ) Oral Hygiene (QC): 4 (Pt requires CGA while standing sink side for balance and safety. ) Shower/Bathe Self (QC): 3 (Pt requires Min assist when standing for balance to wash periarea and buttocks. ) Upper Body Dressing (QC): 5 (Pt required set up for task while seated in w/c.) Lower Body Dressing (QC): 4 (Pt requires CGA for task, utilizing regulatory and compliance technician. ) On/Off Footwear: 4 (Pt required SBA for task, utilizing sock aide and regulatory and compliance technician. Min verbal cues. ) Toileting Hygiene (QC): 4 (CGA when standing for pant hike, able to manage hygiene.) Other Treatment 0800-08:15 OT tx session: Pt was seated in chair upon OT arrival. Pt stated he was having a bad day due to body hurting. Pt educated on energy conservation strategies to support functional endurance for ADL's. Pt and spouse were also educated on reason for OT and rehab process due to confidence and understanding. Pt performed sit to stand w/ FWW, CGA for safety. Pt performed functional mobility w/ FWW to SC, Mod assist due to LOB when turning FWW to get ready for sitting onto SC. Pt performed stand to sit, w/ FWW on SC, CGA. PT came in for cotreat. 08:15-09:00 OT/PT cotreat: Due to skill of 2 clinicians required which a rehabilitation engineer could not perform in order to coordinate UE/LEs, decrease fall risk, and due to pt's limitations in standing balance, transfers/mobility, problem solving, sequencing, and safety awareness. OT focused on UE placement, cues for sequencing and safety and ADLs, PT focused on LE placement, gross overall movements, and transfers/mobility. Pt participated in shower task, UBD, LBD, footwear, and oral hygiene. Pt required skilled encouragement during tx session to complete tasks successfully. Pt educated on breathing strategies and taking rest breaks when feeling frustrated to support mental health for ADL function, safety, and skill. Pt participated in oral care, CGA. When combing hair in standing, requiring min A for balance while reaching overhead. [id number] OT tx session. Pt participated in functional mobility from sink side to chair w/ FWW at [facility]. Pt re-educated on AE w/ demonstrations w/ spouse present. Pt participated in donning w/ sock aide and doffing w/ regulatory and compliance technician gripper socks, requiring VC's for sequencing and to stay on task. Post tx session, pt was seated in chair, legs elevated, call light within reach, and all needs met. Education OT Patient Education: Correct positioning, Energy conservation, Exercise program, Home exercise program, Modified ADL techniques, Progress toward Goal/Update tx plan, Purpose of tx/functional activities, Rehab process, Safety issues, Use of adapted equipment Teaching Recipient: Patient, Family Teaching Methods: Demonstration, Handout, Discussion Response to Teaching: Verbalize Understanding, Return Demonstration, Reinforcement Needed OT Short Term Goals Short Term Goals Time Frame: Oct 07, 2021 Oral hygiene: 5 Shower/bathe self: 4 Lower body dressin OT Radio News Anchor Goals Radio News Anchor Goals Time Frame: Oct 16, 2021 Eating (QC): 6 (met) Oral Hygiene (QC): 6 (not met, CGA) Toileting Hygiene (QC): 6 (not met, CGA) Shower/Bathe Self (QC): 4 (not met, min A) Upper Body Dressing (QC): 5 (met) Lower Body Dressing (QC): 4 (met) On/Off Footwear (QC): 4 (met) Additional Goals: 1-Demonstrate ADL Tasks, 2-Verbalize Understanding, 3-I mproveStrength/Johnathan 1=Demonstrate adherence to instructed precautions during ADL tasks. 2=Patient will verbalize/demonstrate understanding of assistive devices/modifications for ADL. 3=Patient will improve strength/tolerance for activity to enable patient to perform ADL's. OT Education/Plan Problem List/Assessment Assessment: Decreased Activ Tolerance, Decreased Safety Aware, Decreased UE Strength, Impaired Coordination, Impaired Funct Balance, Impaired I ADL's, Impaired Self-Care Skills, Restricted Funct UE ROM Discharge Recommendations Plan/Recommendations: Continue POC Treatment Plan/Plan of Care Patient would benefit from OT for education, treatment and training to promote independence in ADL's, mobility, safety and/or upper extremity function for ADL's. Plan of Care: ADL Retraining, Functional Mobility, Group Exercise/Act as Ind, UE Funct Exercise/Act Treatment Duration: Oct 16, 2021 Frequency: At least 5 of 7 days/Wk (IRF) Estimated Hrs Per Day: 1.5 hours per day Rehab Potential: Fair Time/GCodes Start Time: 08:00 Stop Time: 09:15 Total Time Billed (hr/min): 75 Billed Treatment Time OT tx [id number], Cotreat OT/PT: 08:15-09:00 (45'), OT tx session: 09:00-09:15 1 Visit, ADL 5 (75') LIZANDRO HAM OT Sep 29, 2021 09:17
--- NOTE | 2021-09-29 09:33 | Speech Therapy Daily Note ---
Speech Daily Progress Note Subjective Date Seen by Provider: Sep 29, 2021 Time Seen by Provider: 00:10 Patient is [place] He will be placed in the [facility] swingbed. Objective Patient completed a series of memory tasks related to his daily needs at 90% with decreased cues. Assessment Assessment Current Status: Good Progress Treatment Plan Discontinue ST Speech Short Term Goals Short Term Goals Short Term Goals 1) Patient will complete memory tasks related to his daily needs at 80% or greater with minimal cues. 2) Patient will complete safety awareness tasks related to his daily needs at 80% or greater with minimal cues. 3) Patient will complete problem solving tasks related to his daily needs at 80% or greater with minimal cues. Speech Nurse Technician Goals Custodial Goals The patient will improve functional abilities in order to be safe and independent in his living environment. Speech-Plan Patient/Family Goals Patient/Family Goals: Patient is discharging to [facility] this date. Treatment Plan Speech Therapy Treatment Plan: Discontinue ST Treatment Duration: Sep 29, 2021 Frequency: 5 times per week Estimated Hrs Per Day: .5 hour per day Rehab Potential: Fair Barriers to Learning: Patient's recent health status, decreased cognitive status Pt/Family Agrees to Plan: Yes Safety Risks/Education Teaching Recipient: Patient Teaching Methods: Demonstration, Discussion Response to Teaching: Verbalize Understanding, Return Demonstration Education Topics Provided: Continued safety upon discharge Time Speech Therapy Time In: 09:30 Speech Therapy Time Out: 09:40 Total Billed Time: 10 Billed Treatment Time 1, SLTS No EXPRESSION OF IDEAS/WANTS: 3 UNDERSTANDING VERBAL CONTENT: 4 BRIEF INTERVIEW MENTAL STATUS: YES REPETITION OF 3 WORDS: 3 TEMPORAL ORIENTATION: YEAR: CORRECT, MONTH: CORRECT, DAY: CORRECT RECALL SOCK: YES WITH CUE, COLOR: YES WITH CUE,, BED: NO MEMORY/RECALL ABILITY: SEASON, THAT HE IS IN THE HOSPITAL SHAKA FERNANDEZ Sep 29, 2021 09:33
--- NOTE | 2021-09-29 09:35 | Therapy Team Discharge Summary ---
Therapy Discharge Summary Discharge Recommendations Date of Discharge Occupational Therapy Decreased Activ Tolerance, Decreased Safety Aware, Decreased UE Strength, Impaired Coordination, Impaired Funct Balance, Impaired I ADL's, Impaired Self- Care Skills, Restricted Funct UE ROM Speech-Language Pathology Patient was admitted to the ARU s/p encephalopathy. Patient received skilled cognitive therapy based on SLUMS score and review of status. The patient progressed toward goals for memory and recall of information. He is discharging [facility] this date. PT Intermediate Goals Intermediate Goals PT Intermediate Goals Time Frame: Oct 14, 2021 Roll Left to Right (QC): 6 Sit to Lying (QC): 4 (SBA) Lying-Sitting on Side/Bed(QC): 4 (SBA) Sit to Stand (QC): 4 (CGA) Chair/Ren-me-Lmkyv Xfer(QC): 4 (CGA) Car Transfer (QC): 3 (Balaji) Does the Patient Walk: Yes Walk 10 feet (QC): 4 (CGA) Walk 10ft-Uneven Surface(QC): 3 (Balaji) Walk 50ft with 2 Turns (QC): 4 (CGA) Walk 150 ft (QC): 4 (CGA) Wheel 50 feet with 2 turns (QC: 6 1 Step (curb) (QC): 3 (Balaji) 4 Steps (QC): 3 (Balaji) 12 Steps (QC): 88 Picking up an Object (QC): 3 (Balaji) OT Intermediate Goals Inserter Goals Time Frame: Oct 16, 2021 Eating (QC): 6 Oral Hygiene (QC): 6 Shower/Bathe Self (QC): 4 Upper Body Dressing (QC): 5 Lower Body Dressing (QC): 4 On/Off Footwear (QC): 4 Toileting Hygiene (QC): 6 Toilet/Commode Transfer (QC): 4 (CGA) Additional Goals: 1-Demonstrate ADL Tasks, 2-Verbalize Understanding, 3- ImproveStrength/Johnathan 1=Demonstrate adherence to instructed precautions during ADL tasks. 2=Patient will verbalize/demonstrate understanding of assistive devices/modifications for ADL. 3=Patient will improve strength/tolerance for activity to enable patient to perform ADL's. Speech Intermediate Goals Intermediate Goals The patient will improve functional abilities in order to be safe and independent in his living environment. SHAKA FERNANDEZ Sep 29, 2021 09:35
--- NOTE | 2021-09-29 10:54 | Physical Therapy Daily Note ---
PT Daily Note-Current Subjective Pt in shower upon arrival. Pt is very reluctant for assistance but agrees to PT. Pain Comment: Pt reports pain but doesn't rate & doesn't want pain med. Mental Status Patient Orientation: Person, Confused Transfers SCALE: Activities may be completed with or without assistive devices. 0-Ocxhfnlvha-uxkcfzv completes the activity by him/herself with no assistance from a helper. 5-Set-up or Clean-up Assistance-helper sets up or cleans up; patient completes activity. [place] assists only prior to or following the activity. 4-Supervision or Touching Assistance-helper provides verbal cues and/or touching/steadying and/or contact guard assistance as patient completes activity. Assistance may be provided throughout the activity or intermittently. 3-Partial/Moderate Assistance-helper does LESS THAN HALF the effort. [place] lifts, holds or supports trunk or limbs, but provides less than half the effort. 2-Substantial/Maximal Assistance-helper does MORE THAN HALF the effort. [place] lifts or holds trunk or limbs and provides more than half the effort. 4-Lzbwnhqjc-eoxjeq does ALL the effort. Patient does none of the effort to complete the activity. Or, the assistance of 2 or more helpers is required for the patient to complete the activity. If activity was not attempted, code reason: 7-Patient Refused. 9-Not Applicable-not attempted and the patient did not perform the activity before the current illness, exacerbation or injury. 10-Not Attempted due to Environmental Limitations-(lack of equipment, weather restraints, etc.). 88-Not Attempted due to Medical Conditions or Safety Concerns. Sit to Stand (QC): 4 Weight Bearing Full Weight Bearing Full Weight Bearing Treatments 08:15-09:00 OT/PT cotreat: Due to skill of 2 clinicians required which a rehabilitation services manager could not perform in order to coordinate UE/LEs, decrease fall risk, and due to pt's limitations in standing balance, transfers/mobility, problem solving, sequencing, and safety awareness. OT focused on UE placement, cues for sequencing and safety and ADLs, PT focused on LE placement, gross overall movements, and transfers/mobility. Pt participated in shower task, UBD, LBD, footwear, and oral hygiene. Pt required skilled encouragement during tx session to complete tasks successfully. Pt educated on breathing strategies and taking rest breaks when feeling frustrated to support mental health for ADL function, safety, and skill. Pt participated in oral care, CGA. When combing hair in standing, requiring min A for balance while reaching overhead. PT departs at this time, OT continues tx. Assessment Current Status: Fair Progress Pt is impulsive and lacks safety awareness. Pt is Min A-CGA for transfers. PT Short Term Goals Short Term Goals Time Frame: Sep 30, 2021 Roll Left & Right: 4 Sit to lyin (Balaji) Lying to sitting on side of be: 3 (Balaji) Sit to stand: 3 (Mando) Chair/atb-wk-oqilz transfer: 3 (Balaji) Walk 10 feet: 3 (mnA) PT Longterm Goals Supervisor Cigar Making Hand Goals PT Supervisor Cigar Making Hand Goals Time Frame: Oct 14, 2021 Roll Left & Right (QC): 6 Sit to Lying (QC): 4 (SBA) Lying-Sitting on Side/Bed(QC): 4 (SBA) Sit to Stand (QC): 4 (CGA) Chair/Pmq-iz-Xdmpm Xfer(QC): 4 (CGA) Toilet Transfer (QC): 4 (CGA) Car Transfer (QC): 3 (Balaji) Does the Patient Walk: Yes Walk 10 feet (QC): 4 (CGA) Walk 50ft with 2 Turns (QC): 4 (CGA) Walk 150 ft (QC): 4 (CGA) Walking 10ft on Uneven Surface: 3 (Balaji) 1 Step (curb) (QC): 3 (Balaji) 4 Steps (QC): 3 (Balaji) 12 Steps (QC): 88 Picking up an Object (QC): 3 (Balaji) Wheel 50 feet with 2 turns (QC: 6 Wheel 150 feet: 6 PT Plan Problem List Problem List: Activity Tolerance, Functional Strength, Safety, Balance Treatment/Plan Treatment Plan: Continue Plan of Care Treatment Plan: Bed Mobility, Education, Functional Activity Johnathan, Functional Strength, Group Therapy, Gait, Safety, Therapeutic Exercise, Transfers Treatment Duration: Oct 14, 2021 Frequency: At least 5 of 7 days/Wk (IRF) Estimated Hrs Per Day: 1.5 hours per day Patient and/or Family Agrees t: Yes Safety Risks/Education Patient Education: Transfer Techniques, Correct Positioning, Safety Issues Teaching Recipient: Patient Teaching Methods: Demonstration, Discussion Response to Teaching: Verbalize Understanding, Return Demonstration Time/GCodes Time In: 815 Time Out: 900 Total Billed Treatment Time: 45 Total Billed Treatment Co-treat w/OT for 45m (815-900) 1, FA x3 (45m) DAVIDE HAWLEY FLOOR CASHIER Sep 29, 2021 10:54
[2021-09-29] MEDS ORDERED: PANT40TA52 PO (11:05)
[2021-09-29] MEDS ORDERED: ENOX40DI8 SQ (11:05)
[2021-09-29] MEDS ORDERED: DOXY100T2 PO (11:05)
[2021-09-29] MEDS ORDERED: METO-333 PO (11:05)
[2021-09-29] MEDS ORDERED: RIFA300C3 PO (11:05)
--- NOTE | 2021-09-29 11:06 | Discharge Inst-Skilled Nursing ---
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 [facility] Facility Order: Nursing Services, Fire Investigator-Evaluate & Treat, Physical Therapy-Evaluate & Treat, Speech Language-Evaluate & Treat Oxygen Delivery Method: Room Air Discharge Diet: No Restrictions Daily Activity as Tolerated: Yes Resuscitation Status: Full Code New & Resume Previous Orders New Medications: Doxycycline Hyclate (Doxycycline Hyclate) 100 Mg Tablet 100 MG PO BID WITH MEALS for 42 Days, TAB Enoxaparin Sodium (Enoxaparin Sodium) 40 Mg/0.4 Ml Syringe 40 MG SQ DAILY for 30 Days, SYRINGE Metoprolol Tartrate (Metoprolol Tartrate) 25 Mg Tablet 25 MG PO BID for 30 Days, TAB Pantoprazole Sodium (Pantoprazole Sodium) 40 Mg Tablet.dr 40 MG PO DAILY for 30 Days, TAB Continued Medications: Acetaminophen (Tylenol) 325 Mg Tablet 650 MG PO Q6H PRN for PAIN-MILD (1-4), TAB Antiox#10/Om3/Dha/Epa/Lut/Zeax (I-Caps with Lutein-[place] 3 Sfg) 1 Each Capsule 1 EACH PO DAILY, CAP Ascorbate Calcium (Vitamin C) 500 Mg Tablet 500 MG PO DAILY, TAB Atorvastatin Calcium (Atorvastatin Calcium) 10 Mg Tablet 10 MG PO HS, TAB Clopidogrel Bisulfate (Clopidogrel) 75 Mg Tablet 75 MG PO DAILY, TAB Fluticasone Propionate (Flonase Allergy Relief) 9.9 Ml [place].susp 1 [place] NSEACH DAILY, EACH Furosemide (Furosemide) 40 Mg Tablet 40 MG PO DAILY PRN for FLUID RETENTION, TAB [place]-3/Dha/Epa/Fish Oil ([place]-3 Fish Oil 1,000 mg Sftg) 1 Each Capsule 1 EACH PO BID, CAP Plant Stanol Mimi (Cholest Off) 450 Mg Tablet 450 MG PO DAILY, TAB Primidone (Mysoline) 50 Mg Tablet 100 MG PO HS, TAB TAKES 2 (50MG) TABS Rifampin (Rifampin) 300 Mg Capsule 300 MG PO DAILY for 42 Days, CAP (This prescription has been renewed) Zinc (Zinc) 50 Mg Tablet 50 MG PO DAILY, TAB Discontinued Medications: Losartan Potassium (Losartan Potassium) 50 Mg Tablet 50 MG PO DAILY, TAB Lois Grande Sep 29, 2021 11:05 LOIS GRANDE DO Sep 29, 2021 11:06
--- NOTE | 2021-09-29 11:07 | Discharge Summary ---
Diagnosis/Chief Complaint Date of Admission Sep 23, 2021 at 14:55 Date of Discharge Discharge Date: Sep 29, 2021 Discharge Summary Discharge Physical Examination Allergies: Coded Allergies: No Known Drug Allergies (Unverified , 06/24/15) Vitals & I&Os Vital Signs Date Time Temp Pulse Resp B/P (MAP) Pulse Ox O2 Delivery O2 Flow Rate FiO2 09/29/21 20:10 Room Air 09/29/21 20:07 37.4 80 20 113/66 (82) 98 Hospital Course Labs (last 24 hrs) Laboratory Tests 09/24/21 05:18: White Blood Count 6.9, Red Blood Count 3.50L, Hemoglobin 10.6L, Hematocrit 33L, Mean Corpuscular Volume 95, Mean Corpuscular Hemoglobin 30, Mean Corpuscular Hemoglobin Concent 32, Red Cell Distribution Width 14.2, Platelet Count 358, Mean Platelet Volume 9.1, Immature Granulocyte % (Auto) 0, Neutrophils (%) (Auto) 45, Lymphocytes (%) (Auto) 38, Monocytes (%) (Auto) 12, Eosinophils (%) (Auto) 4, Basophils (%) (Auto) 1, Neutrophils # (Auto) 3.1, Lymphocytes # (Auto) 2.6, Monocytes # (Auto) 0.8, Eosinophils # (Auto) 0.3, Basophils # (Auto) 0.0, Immature Granulocyte # (Auto) 0.0, Sodium Level 138, Potassium Level 4.0, Chloride Level 104, Carbon Dioxide Level 23, Anion Gap 11, Blood Urea Nitrogen 34H, Creatinine 1.10, Estimat Glomerular Filtration Rate 66, BUN/Creatinine Ratio 31, Glucose Level 89, Calcium Level 10.0, Corrected Calcium 10.8H, Total Bilirubin 0.3, Aspartate Amino Transf (AST/SGOT) 31, Alanine Aminotransferase (ALT/SGPT) 24, Alkaline Phosphatase 55, Total Protein 7.6, Albumin 3.0L 09/28/21 05:20: White Blood Count 7.6, Red Blood Count 3.31L, Hemoglobin 10.3L, Hematocrit 31L, Mean Corpuscular Volume 95, Mean Corpuscular Hemoglobin 31, Mean Corpuscular Hemoglobin Concent 33, Red Cell Distribution Width 14.5, Platelet Count 370, Mean Platelet Volume 9.3, Immature Granulocyte % (Auto) 0, Neutrophils (%) (Auto) 39L, Lymphocytes (%) (Auto) 44, Monocytes (%) (Auto) 9, Eosinophils (%) (Auto) 6, Basophils (%) (Auto) 1, Neutrophils # (Auto) 3.0, Lymphocytes # (Auto) 3.4, Monocytes # (Auto) 0.7, Eosinophils # (Auto) 0.5H, Basophils # (Auto) 0.1, Immature Granulocyte # (Auto) 0.0, Sodium Level 136, Potassium Level 4.3, Chloride Level 102, Carbon Dioxide Level 22, Anion Gap 12, Blood Urea Nitrogen 33H, Creatinine 1.28, Estimat Glomerular Filtration Rate 55, BUN/Creatinine Ratio 26, Glucose Level 89, Calcium Level 9.4, Corrected Calcium 10.1, Total Bilirubin 0.3, Aspartate Amino Transf (AST/SGOT) 27, Alanine Aminotransferase (ALT/SGPT) 20, Alkaline Phosphatase 54, Total Protein 7.3, Albumin 3.1L Pending Labs Laboratory Tests 09/24/21 05:18: White Blood Count 6.9, Red Blood Count 3.50, Hemoglobin 10.6, Hematocrit 33, Mean Corpuscular Volume 95, Mean Corpuscular Hemoglobin 30, Mean Corpuscular Hemoglobin Concent 32, Red Cell Distribution Width 14.2, Platelet Count 358, Mean Platelet Volume 9.1, Immature Granulocyte % (Auto) 0, Neutrophils (%) (Auto) 45, Lymphocytes (%) (Auto) 38, Monocytes (%) (Auto) 12, Eosinophils (%) (Auto) 4, Basophils (%) (Auto) 1, Neutrophils # (Auto) 3.1, Lymphocytes # (Auto) 2.6, Monocytes # (Auto) 0.8, Eosinophils # (Auto) 0.3, Basophils # (Auto) 0.0, Immature Granulocyte # (Auto) 0.0, Sodium Level 138, Potassium Level 4.0, Chloride Level 104, Carbon Dioxide Level 23, Anion Gap 11, Blood Urea Nitrogen 34, Creatinine 1.10, Estimat Glomerular Filtration Rate 66, BUN/Creatinine Ratio 31, Glucose Level 89, Calcium Level 10.0, Corrected Calcium 10.8, Total Bilirubin 0.3, Aspartate Amino Transf (AST/SGOT) 31, Alanine Aminotransferase (ALT/SGPT) 24, Alkaline Phosphatase 55, Total Protein 7.6, Albumin 3.0 11/1/21 05:20: White Blood Count 7.6, Red Blood Count 3.31, Hemoglobin 10.3, Hematocrit 31, Mean Corpuscular Volume 95, Mean Corpuscular Hemoglobin 31, Mean Corpuscular Hemoglobin Concent 33, Red Cell Distribution Width 14.5, Platelet Count 370, Mean Platelet Volume 9.3, Immature Granulocyte % (Auto) 0, Neutrophils (%) (Auto) 39, Lymphocytes (%) (Auto) 44, Monocytes (%) (Auto) 9, Eosinophils (%) (Auto) 6, Basophils (%) (Auto) 1, Neutrophils # (Auto) 3.0, Lymphocytes # (Auto) 3.4, Monocytes # (Auto) 0.7, Eosinophils # (Auto) 0.5, Basophils # (Auto) 0.1, Immature Granulocyte # (Auto) 0.0, Sodium Level 136, Potassium Level 4.3, Chloride Level 102, Carbon Dioxide Level 22, Anion Gap 12, Blood Urea Nitrogen 33, Creatinine 1.28, Estimat Glomerular Filtration Rate 55, BUN/Creatinine Ratio 26, Glucose Level 89, Calcium Level 9.4, Corrected Calcium 10.1, Total Bilirubin 0.3, Aspartate Amino Transf (AST/SGOT) 27, Alanine Aminotransferase (ALT/SGPT) 20, Alkaline Phosphatase 54, Total Protein 7.3, Albumin 3.1 Discharge Home Medications: Active Scripts Active Pantoprazole Sodium 40 Mg Tablet.dr 40 Mg PO DAILY 30 Days Metoprolol Tartrate 25 Mg Tablet 25 Mg PO BID 30 Days Enoxaparin Sodium 40 Mg/0.4 Ml Syringe 40 Mg SQ DAILY 30 Days Doxycycline Hyclate 100 Mg Tablet 100 Mg PO BID WITH MEALS 42 Days Rifampin 300 Mg Capsule 300 Mg PO DAILY 42 Days Reported Cholest Off (Plant Stanol Mimi) 450 Mg Tablet 450 Mg PO DAILY Zinc 50 Mg Tablet 50 Mg PO DAILY I-Caps with Lutein-[place] 3 Sfg (Antiox#10/Om3/Dha/Epa/Lut/Zeax) 1 Each Capsule 1 Each PO DAILY Vitamin C (Ascorbate Calcium) 500 Mg Tablet 500 Mg PO DAILY Atorvastatin Calcium 10 Mg Tablet 10 Mg PO HS Losartan Potassium 50 Mg Tablet 50 Mg PO DAILY Furosemide 40 Mg Tablet 40 Mg PO DAILY PRN Mysoline (Primidone) 50 Mg Tablet 100 Mg PO HS TAKES 2 (50MG) TABS [place]-3 Fish Oil 1,000 mg Sftg ([place]-3/Dha/Epa/Fish Oil) 1 Each Capsule 1 Each PO BID Flonase Allergy Relief (Fluticasone Propionate) 9.9 Ml [place].susp 1 [place] NSEACH DAILY Clopidogrel (Clopidogrel Bisulfate) 75 Mg Tablet 75 Mg PO DAILY Tylenol (Acetaminophen) 325 Mg Tablet 650 Mg PO Q6H PRN Instructions to patient/family Please see electronic discharge instructions given to patient. Diagnosis/Problems Diagnosis/Problems (1) Encephalopathy SUSAN MITCHELL DO Sep 29, 2021 11:07
--- NOTE | 2021-09-29 14:44 | Physical Therapy Daily Note ---
PT Daily Note-Current Subjective Pt sitting in recliner visiting w/SP upon arrival. Pt agrees to QC scoring for anticipated upcoming d/c. Transfers SCALE: Activities may be completed with or without assistive devices. 3-Awpmnqmpzf-opyggop completes the activity by him/herself with no assistance from a helper. 5-Set-up or Clean-up Assistance-helper sets up or cleans up; patient completes activity. [place] assists only prior to or following the activity. 4-Supervision or Touching Assistance-helper provides verbal cues and/or touching/steadying and/or contact guard assistance as patient completes activity. Assistance may be provided throughout the activity or intermittently. 3-Partial/Moderate Assistance-helper does LESS THAN HALF the effort. [place] lifts, holds or supports trunk or limbs, but provides less than half the effort. 2-Substantial/Maximal Assistance-helper does MORE THAN HALF the effort. [place] lifts or holds trunk or limbs and provides more than half the effort. 3-Rasfrossy-apgnyi does ALL the effort. Patient does none of the effort to complete the activity. Or, the assistance of 2 or more helpers is required for the patient to complete the activity. If activity was not attempted, code reason: 7-Patient Refused. 9-Not Applicable-not attempted and the patient did not perform the activity befo re the current illness, exacerbation or injury. 10-Not Attempted due to Environmental Limitations-(lack of equipment, weather re straints, etc.). 88-Not Attempted due to Medical Conditions or Safety Concerns. Roll Left & Right (QC): 5 Sit to Lying (QC): 5 Lying to Sitting/Side of Bed(Q: 5 Sit to Stand (QC): 5 Chair/Lge-ou-Cogdw Xfer(QC): 5 Toilet Transfer (QC): 5 Car Transfer (QC): 5 Pt is able to complete transfers but Therapy staff is close SBA for safety and balance. Weight Bearing Full Weight Bearing Full Weight Bearing Gait Training Does the Patient Walk?: Yes Distance: 150' x2 Walk 10 feet (QC): 4 Walk 50 ft with 2 Turns(QC): 4 Walk 150 ft (QC): 4 Walking 10ft/uneven surface-QC: 3 Gait Persons Needed: 1 Gait Assistive Device: FWW Wheelchair Training Does the Pt Use a Wheelchair?: No Stair Training Stair Training: Handrails/: 2 handrails #of Steps: 8 1 Step (curb) (QC): 4 4 Steps (QC): 4 12 Steps (QC): 7 Stairs: Pattern: Reciprocal Pt requires CGA-Min A for balance. Balance Picking up an Object (QC): 88 Special Test Comments Pt's lack of balance doesn't make it safe to attempt this item. Treatments TF to standing and amb. in hallway. Pt completes QC scoring items listed above. Pt returns to room to rest in bed at end of tx. All needs met, call light in hand. Assessment Current Status: Fair Progress Pt continues to demonstrate lack of safety awareness and balance. PT Short Term Goals Short Term Goals Time Frame: Sep 30, 2021 Roll Left & Right: 4 Sit to lyin (Balaji) Lying to sitting on side of be: 3 (Balaji) Sit to stand: 3 (Mando) Chair/ibg-dm-ugjng transfer: 3 (Balaji) Walk 10 feet: 3 (mnA) PT Sales Program Coordinator Goals Sales Program Coordinator Goals PT Sales Program Coordinator Goals Time Frame: Oct 14, 2021 Roll Left & Right (QC): 6 Sit to Lying (QC): 4 (SBA) Lying-Sitting on Side/Bed(QC): 4 (SBA) Sit to Stand (QC): 4 (CGA) Chair/Szc-bp-Fxfxx Xfer(QC): 4 (CGA) Toilet Transfer (QC): 4 (CGA) Car Transfer (QC): 3 (Balaji) Does the Patient Walk: Yes Walk 10 feet (QC): 4 (CGA) Walk 50ft with 2 Turns (QC): 4 (CGA) Walk 150 ft (QC): 4 (CGA) Walking 10ft on Uneven Surface: 3 (Balaji) 1 Step (curb) (QC): 3 (Balaji) 4 Steps (QC): 3 (Balaji) 12 Steps (QC): 88 Picking up an Object (QC): 3 (Balaji) Wheel 50 feet with 2 turns (QC: 6 Wheel 150 feet: 6 PT Plan Problem List Problem List: Activity Tolerance, Functional Strength, Safety, Balance Treatment/Plan Treatment Plan: Continue Plan of Care Treatment Plan: Bed Mobility, Education, Functional Activity Johnathan, Functional Strength, Group Therapy, Gait, Safety, Therapeutic Exercise, Transfers Treatment Duration: Oct 14, 2021 Frequency: At least 5 of 7 days/Wk (IRF) Estimated Hrs Per Day: 1.5 hours per day Patient and/or Family Agrees t: Yes Safety Risks/Education Patient Education: Transfer Techniques, Steps, Correct Positioning, Safety Issues Teaching Recipient: Patient Teaching Methods: Discussion Response to Teaching: Reinforcement Needed Time/GCodes Time In: 1300 Time Out: 1330 Total Billed Treatment Time: 30 Total Billed Treatment 1, FA x2 (30m) DAVIDE [place] CLERK Sep 29, 2021 14:44
[2021-09-29 20:07] VITALS: BP 113/66
[2021-09-29] MEDS: LORazepam 0.5 MG (ATIVAN) TABLET PO PRN (20:15)
[2021-09-29] MEDS: MELATONIN 3 MG TABLET PO PRN (20:16)
--- NOTE | 2021-09-30 07:07 | Discharge Summary ---
Diagnosis/Chief Complaint Date of Admission Sep 23, 2021 at 14:55 Date of Discharge Discharge Date: Sep 29, 2021 Discharge Diagnosis Assessment: 1. 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 CAD 4. HTN 5. Essential tremor 6. Alcohol use disorder 7. RLE cellulitis 8. Hypercalcemia 10.8 9. Anemia Plan: Fluid restriction Sodium supplementation Supportive care Inpatient rehab protocol 09/24/2021: Increase fluid intake relaxing restriction Stop sodium chloride tablets and urea 09/25/2021: Close monitoring of sodium Supportive care 09/26/2021: Dramatic improvement Continue aggressive therapy 09/27/2021: Fluid restriction Supportive care 09/28/2021: DC fluid restriction Continue aggressive therapy 09/29/2021: Much improved status Discharge plan to [facility] (1) Encephalopathy Discharge Summary Discharge Physical Examination Allergies: Coded Allergies: No Known Drug Allergies (Unverified , 06/24/15) Vitals & I&Os Vital Signs Date Time Temp Pulse Resp B/P (MAP) Pulse Ox O2 Delivery O2 Flow Rate FiO2 09/30/21 15:13 37.0 77 18 124/58 91 Room Air General Appearance: Alert, Oriented X3, Cooperative Respiratory: Clear to Auscultation Cardiovascular: Regular Rate Neuro: Normal Gait, Normal Speech, Strength at 5/5 X4 Ext Hospital Course Was the Problem List Reviewed?: Yes Hospital Course: Pt had an uneventful 8 day hospital course. He was placed on fluid restriction and salt tablets along with urea for hyponatremia. He overall tolerated everything very well. Labs remained stable. We discontinued the fluid restriction and salt tablets and urea since sodium level went back to normal at 138. Bowels returned back to normal and overall he had a dramatic improvement but wanted him to go to swing bed in [place] and those arrangements were made. Labs (last 24 hrs) Laboratory Tests 09/24/21 05:18: White Blood Count 6.9, Red Blood Count 3.50L, Hemoglobin 10.6L, Hematocrit 33L, Mean Corpuscular Volume 95, Mean Corpuscular Hemoglobin 30, Mean Corpuscular Hemoglobin Concent 32, Red Cell Distribution Width 14.2, Platelet Count 358, Mean Platelet Volume 9.1, Immature Granulocyte % (Auto) 0, Neutrophils (%) (Auto) 45, Lymphocytes (%) (Auto) 38, Monocytes (%) (Auto) 12, Eosinophils (%) (Auto) 4, Basophils (%) (Auto) 1, Neutrophils # (Auto) 3.1, Lymphocytes # (Auto) 2.6, Monocytes # (Auto) 0.8, Eosinophils # (Auto) 0.3, Basophils # (Auto) 0.0, Immature Granulocyte # (Auto) 0.0, Sodium Level 138, Potassium Level 4.0, Chloride Level 104, Carbon Dioxide Level 23, Anion Gap 11, Blood Urea Nitrogen 34H, Creatinine 1.10, Estimat Glomerular Filtration Rate 66, BUN/Creatinine Ratio 31, Glucose Level 89, Calcium Level 10.0, Corrected Calcium 10.8H, Total Bilirubin 0.3, Aspartate Amino Transf (AST/SGOT) 31, Alanine Aminotransferase (ALT/SGPT) 24, Alkaline Phosphatase 55, Total Protein 7.6, Albumin 3.0L 09/28/21 05:20: White Blood Count 7.6, Red Blood Count 3.31L, Hemoglobin 10.3L, Hematocrit 31L, Mean Corpuscular Volume 95, Mean Corpuscular Hemoglobin 31, Mean Corpuscular Hemoglobin Concent 33, Red Cell Distribution Width 14.5, Platelet Count 370, Mean Platelet Volume 9.3, Immature Granulocyte % (Auto) 0, Neutrophils (%) (Auto) 39L, Lymphocytes (%) (Auto) 44, Monocytes (%) (Auto) 9, Eosinophils (%) (Auto) 6, Basophils (%) (Auto) 1, Neutrophils # (Auto) 3.0, Lymphocytes # (Auto) 3.4, Monocytes # (Auto) 0.7, Eosinophils # (Auto) 0.5H, Basophils # (Auto) 0.1, Immature Granulocyte # (Auto) 0.0, Sodium Level 136, Potassium Level 4.3, Chloride Level 102, Carbon Dioxide Level 22, Anion Gap 12, Blood Urea Nitrogen 33H, Creatinine 1.28, Estimat Glomerular Filtration Rate 55, BUN/Creatinine Ra jenn 26, Glucose Level 89, Calcium Level 9.4, Corrected Calcium 10.1, Total Bilirubin 0.3, Aspartate Amino Transf (AST/SGOT) 27, Alanine Aminotransferase (ALT/SGPT) 20, Alkaline Phosphatase 54, Total Protein 7.3, Albumin 3.1L Pending Labs Laboratory Tests 09/24/21 05:18: White Blood Count 6.9, Red Blood Count 3.50, Hemoglobin 10.6, Hematocrit 33, Mean Corpuscular Volume 95, Mean Corpuscular Hemoglobin 30, Mean Corpuscular Hemoglobin Concent 32, Red Cell Distribution Width 14.2, Platelet Count 358, Mean Platelet Volume 9.1, Immature Granulocyte % (Auto) 0, Neutrophils (%) (Auto) 45, Lymphocytes (%) (Auto) 38, Monocytes (%) (Auto) 12, Eosinophils (%) (Auto) 4, Basophils (%) (Auto) 1, Neutrophils # (Auto) 3.1, Lymphocytes # (Auto) 2.6, Monocytes # (Auto) 0.8, Eosinophils # (Auto) 0.3, Basophils # (Auto) 0.0, Immature Granulocyte # (Auto) 0.0, Sodium Level 138, Potassium Level 4.0, Chloride Level 104, Carbon Dioxide Level 23, Anion Gap 11, Blood Urea Nitrogen 34, Creatinine 1.10, Estimat Glomerular Filtration Rate 66, BUN/Creatinine Ratio 31, Glucose Level 89, Calcium Level 10.0, Corrected Calcium 10.8, Total Bilirubin 0.3, Aspartate Amino Transf (AST/SGOT) 31, Alanine Aminotransferase (ALT/SGPT) 24, Alkaline Phosphatase 55, Total Protein 7.6, Albumin 3.0 09/28/21 05:20: White Blood Count 7.6, Red Blood Count 3.31, Hemoglobin 10.3, Hematocrit 31, Mean Corpuscular Volume 95, Mean Corpuscular Hemoglobin 31, Mean Corpuscular Hemoglobin Concent 33, Red Cell Distribution Width 14.5, Platelet Count 370, Mean Platelet Volume 9.3, Immature Granulocyte % (Auto) 0, Neutrophils (%) (Auto) 39, Lymphocytes (%) (Auto) 44, Monocytes (%) (Auto) 9, Eosinophils (%) (Auto) 6, Basophils (%) (Auto) 1, Neutrophils # (Auto) 3.0, Lymphocytes # (Auto) 3.4, Monocytes # (Auto) 0.7, Eosinophils # (Auto) 0.5, Basophils # (Auto) 0.1, Immature Granulocyte # (Auto) 0.0, Sodium Level 136, Potassium Level 4.3, Chloride Level 102, Carbon Dioxide Level 22, Anion Gap 12, Blood Urea Nitrogen 33, Creatinine 1.28, Estimat Glomerular Filtration Rate 55, BUN/Creatinine Ratio 26, Glucose Level 89, Calcium Level 9.4, Corrected Calcium 10.1, Total Bilirubin 0.3, Aspartate Amino Transf (AST/SGOT) 27, Alanine Aminotransferase (ALT/SGPT) 20, Alkaline Phosphatase 54, Total Protein 7.3, Albumin 3.1 Discharge Home Medications: Active Scripts Active Pantoprazole Sodium 40 Mg Tablet.dr 40 Mg PO DAILY 30 Days Metoprolol Tartrate 25 Mg Tablet 25 Mg PO BID 30 Days Enoxaparin Sodium 40 Mg/0.4 Ml Syringe 40 Mg SQ DAILY 30 Days Doxycycline Hyclate 100 Mg Tablet 100 Mg PO BID WITH MEALS 42 Days Rifampin 300 Mg Capsule 300 Mg PO DAILY 42 Days Reported Cholest Off (Plant Stanol Mimi) 450 Mg Tablet 450 Mg PO DAILY Zinc 50 Mg Tablet 50 Mg PO DAILY I-Caps with Lutein-[place] 3 Sfg (Antiox#10/Om3/Dha/Epa/Lut/Zeax) 1 Each Capsule 1 Each PO DAILY Vitamin C (Ascorbate Calcium) 500 Mg Tablet 500 Mg PO DAILY Atorvastatin Calcium 10 Mg Tablet 10 Mg PO HS Furosemide 40 Mg Tablet 40 Mg PO DAILY PRN Mysoline (Primidone) 50 Mg Tablet 100 Mg PO HS TAKES 2 (50MG) TABS [place]-3 Fish Oil 1,000 mg Sftg ([place]-3/Dha/Epa/Fish Oil) 1 Each Capsule 1 Each PO BID Flonase Allergy Relief (Fluticasone Propionate) 9.9 Ml [place].susp 1 [place] NSEACH DAILY Clopidogrel (Clopidogrel Bisulfate) 75 Mg Tablet 75 Mg PO DAILY Tylenol (Acetaminophen) 325 Mg Tablet 650 Mg PO Q6H PRN Instructions to patient/family Please see electronic discharge instructions given to patient. Diagnosis/Problems Diagnosis/Problems (1) Encephalopathy SUSAN MITCHELL DO Sep 30, 2021 07:07
[2021-09-30 07:47] VITALS: BP 124/58
[2021-09-30] MEDS: PRIMIDONE 50 MG TAB (MYSOLINE) PO SCH ×2 (08:17→13:30)
[2021-09-30] MEDS: PANTOPRAZOLE 40 MG (PROTONIX) TAB PO SCH (08:17)
[2021-09-30] MEDS: CLOPIDOGREL 75 MG (PLAVIX) TABLET PO SCH (08:17)
[2021-09-30] MEDS: SENNA W/DOCUSATE (SENOKOT S) TABLET PO SCH (08:17)
[2021-09-30] MEDS: DOCUSATE SODIUM 100 MG (COLACE) CAP PO SCH (08:17)
[2021-09-30] MEDS: OMEGA 3 (FISH OIL) 1000 MG CAP PO SCH (08:17)
[2021-09-30] MEDS: meTOprolol TARTRATE 25 MG (LOPRESSOR) TABLET PO SCH (08:17)
[2021-09-30] MEDS: DOXYCYCLINE 100 MG (VIBRAMYCIN) TABLET PO SCH (08:17)
[2021-09-30] MEDS: ENOXAPARIN 40 MG/0.4 ML (LOVENOX) SYR SQ SCH (08:21)
[2021-09-30] MEDS: FLUTICASONE NASAL SPRAY (FLONASE) 16 GM BTL NS SCH (08:23)
[2021-09-30] MEDS: polyethylene glycoL POWDER 17 GM (MIRALAX) PACK PO SCH (08:24)
--- NOTE | 2021-09-30 09:09 | Physical Therapy Daily Note ---
PT Daily Note-Current Subjective Pt laying Supine in bed upon arrival. Pt agrees to PT. Pt & Sp still wondering when pt might d/c. Pain Numeric Pain Scale: 10-Worst Possible Pain Location Body Site: Back Pain Description: Ache, Tightness Comment: Pt reports 10/10 back pain & 7-8/10 for shoulder. Mental Status Patient Orientation: Person, Place Transfers SCALE: Activities may be completed with or without assistive devices. 5-Pgxehnlbia-yennxus completes the activity by him/herself with no assistance from a helper. 5-Set-up or Clean-up Assistance-helper sets up or cleans up; patient completes activity. [place] assists only prior to or following the activity. 4-Supervision or Touching Assistance-helper provides verbal cues and/or touching/steadying and/or contact guard assistance as patient completes activity. Assistance may be provided throughout the activity or intermittently. 3-Partial/Moderate Assistance-helper does LESS THAN HALF the effort. [place] lifts, holds or supports trunk or limbs, but provides less than half the effort. 2-Substantial/Maximal Assistance-helper does MORE THAN HALF the effort. [place] lifts or holds trunk or limbs and provides more than half the effort. 1-Achaciuln-vjmcvk does ALL the effort. Patient does none of the effort to complete the activity. Or, the assistance of 2 or more helpers is required for the patient to complete the activity. If activity was not attempted, code reason: 7-Patient Refused. 9-Not Applicable-not attempted and the patient did not perform the activity before the current illness, exacerbation or injury. 10-Not Attempted due to Environmental Limitations-(lack of equipment, weather restraints, etc.). 88-Not Attempted due to Medical Conditions or Safety Concerns. Lying to Sitting/Side of Bed(Q: 5 Sit to Stand (QC): 4 Toilet Transfer (QC): 4 Weight Bearing Full Weight Bearing Full Weight Bearing Gait Training Does the Patient Walk?: Yes Distance: 125 x4 Walk 10 feet (QC): 4 Walk 50 ft with 2 Turns(QC): 4 Walk 150 ft (QC): 4 Gait Persons Needed: 1 Gait Assistive Device: FWW Wheelchair Training Does the Pt Use a Wheelchair?: No Treatments Nurse gives morning meds to start tx. Pt transfers to EOB then to standing. Pt declines need for BR. Pt amb in hallway then asks to return to use BR. Pt needs assist with pericare then amb again in hallway, taking a break after 125'. Pt returns to room to rest in recliner with all needs met. Sp is present and pt has call light in hand. Assessment Current Status: Fair Progress Pt continues to remain impulsive and unaware of safety. PT Short Term Goals Short Term Goals Time Frame: Sep 30, 2021 Roll Left & Right: 4 Sit to lyin (Balaji) Lying to sitting on side of be: 3 (Balaji) Sit to stand: 3 (Mando) Chair/qdl-ty-jrdej transfer: 3 (Balaji) Walk 10 feet: 3 (mnA) PT Degreaser Operator Goals Degreaser Operator Goals PT Degreaser Operator Goals Time Frame: Oct 14, 2021 Roll Left & Right (QC): 6 Sit to Lying (QC): 4 (SBA) Lying-Sitting on Side/Bed(QC): 4 (SBA) Sit to Stand (QC): 4 (CGA) Chair/Ovr-ke-Tisqu Xfer(QC): 4 (CGA) Toilet Transfer (QC): 4 (CGA) Car Transfer (QC): 3 (Balaji) Does the Patient Walk: Yes Walk 10 feet (QC): 4 (CGA) Walk 50ft with 2 Turns (QC): 4 (CGA) Walk 150 ft (QC): 4 (CGA) Walking 10ft on Uneven Surface: 3 (Balaji) 1 Step (curb) (QC): 3 (Balaji) 4 Steps (QC): 3 (Balaji) 12 Steps (QC): 88 Picking up an Object (QC): 3 (Balaji) Wheel 50 feet with 2 turns (QC: 6 Wheel 150 feet: 6 PT Plan Problem List Problem List: Activity Tolerance, Safety Treatment/Plan Treatment Plan: Continue Plan of Care Treatment Plan: Bed Mobility, Education, Functional Activity Johnathan, Functional Strength, Group Therapy, Gait, Safety, Therapeutic Exercise, Transfers Treatment Duration: Oct 14, 2021 Frequency: At least 5 of 7 days/Wk (IRF) Estimated Hrs Per Day: 1.5 hours per day Patient and/or Family Agrees t: Yes Safety Risks/Education Patient Education: Correct Positioning, Safety Issues Teaching Recipient: Patient Teaching Methods: Discussion Response to Teaching: Reinforcement Needed Time/GCodes Time In: 800 Time Out: 900 Total Billed Treatment Time: 60 Total Billed Treatment 1, FA x2 (30m) & GT x2 (30m) DAVIDE HAWLEY WORLD LANGUAGE TEACHER Sep 30, 2021 09:09
--- NOTE | 2021-09-30 11:02 | Occupational Ther Daily Note ---
OT Current Status-Daily Note Subjective Pt was lying supine in bed sleeping upon OT arrival, at bedside. Pt stated he was tired, but agreed to OT tx session. Mental Status/Objective Patient Orientation: Person, Place, Situation ADL-Treatment Therapy Code Descriptions/Definitions Functional [place] Measure: 0=Not Assessed/NA 4=Minimal Assistance 1=Total Assistance 5=Supervision or Setup 2=Maximal Assistance 6=Modified [place] 3=Moderate Assistance 7=Complete IndependenceSCALE: Activities may be completed with or without assistive devices. 2-Quiutfgnkb-yhtadqz completes the activity by him/herself with no assistance from a helper. 5-Set-up or Clean-up Assistance-helper sets up or cleans up; patient completes activity. [place] assists only prior to or following the activity. 4-Supervision or Touching Assistance-helper provides verbal cues and/or touching/steadying and/or contact guard assistance as patient completes activity. Assistance may be provided throughout the activity or intermittently. 3-Partial/Moderate Assistance-helper does LESS THAN HALF the effort. [place] lifts, holds or supports trunk or limbs, but provides less than half the effort. 2-Substantial/Maximal Assistance-helper does MORE THAN HALF the effort. [place] lifts or holds trunk or limbs and provides more than half the effort. 9-Fqzosfmzv-pekvwd does ALL the effort. Patient does none of the effort to complete the activity. Or, the assistance of 2 or more helpers is required for the patient to complete the activity. If activity was not attempted, code reason: 7-Patient Refused. 9-Not Applicable-not attempted and the patient did not perform the activity before the current illness, exacerbation or injury. 10-Not Attempted due to Environmental Limitations-(lack of equipment, weather restraints, etc.). 88-Not Attempted due to Medical Conditions or Safety Concerns. Other Treatment Pt was lying supine in bed sleeping upon OT arrival, at bedside. Pt performed bed mobility from supine to EOB, requiring VC's for hand placement. Pt transferred sit to stand, stand to w/c w/ FWW at [facility] for safety. Pt performed w/c mobility from room to therapy gym, required x3 rest breaks, VC's for hand placement and initiating task throughout. Pt participated in arm bike exercise while seated to support strength and endurance for ADL function: 1st Attempt: 20 watt resistance, 1 minute, x2 rest breaks. Pt complained of R shoulder pain, OT scaled back exercise to reduce pain. 2nd Attempt: 10 watt resistance, 9 minutes, x4 rest breaks. Pt then participated while seated in w/c in peg and peg board a ctivity, w/ 1lb wrist weights, rotating R and L hand, completing 58/100 pegs, to support sitting balance, crossing midline, reaching, finger dexterity, FMC, wrist flexion, wrist extension, and endurance for ADL skill. Pt performed w/c mobility from therapy gym to room, required x2 rest breaks, VC's to initiate task. Pt transferred from w/c to bed w/ FWW, CGA for safety. Pt performed bed mobility from EOB to supine, SBA. Post tx session, pt was lying supine in bed, by bedside, call light within reach, and all needs met. Education OT Patient Education: Correct positioning, Energy conservation, Progress toward Goal/Update tx plan, Purpose of tx/functional activities, Safety issues, Transfer techniques, W/C management Teaching Recipient: Patient Teaching Methods: Demonstration, Discussion Response to Teaching: Verbalize Understanding, Return Demonstration, Reinforcement Needed OT Short Term Goals Short Term Goals Time Frame: Oct 07, 2021 Oral hygiene: 5 Shower/bathe self: 4 Lower body dressin OT Director Retirement Goals Pen[facility] Goals Time Frame: Oct 16, 2021 Eating (QC): 6 (met) Oral Hygiene (QC): 6 (not met, CGA) Toileting Hygiene (QC): 6 (not met, CGA) Shower/Bathe Self (QC): 4 (not met, min A) Upper Body Dressing (QC): 5 (met) Lower Body Dressing (QC): 4 (met) On/Off Footwear (QC): 4 (met) Additional Goals: 1-Demonstrate ADL Tasks, 2-Verbalize Understanding, 3- ImproveStrength/Johnathan 1=Demonstrate adherence to instructed precautions during ADL tasks. 2=Patient will verbalize/demonstrate understanding of assistive devices/modifications for ADL. 3=Patient will improve strength/tolerance for activity to enable patient to perform ADL's. OT Education/Plan Problem List/Assessment Assessment: Decreased Activ Tolerance, Decreased UE Strength, Impaired Cognition, Impaired Coordination, Impaired Funct Balance, Impaired I ADL's, Impaired Self-Care Skills, Restricted Funct UE ROM Discharge Recommendations Plan/Recommendations: Continue POC Treatment Plan/Plan of Care Patient would benefit from OT for education, treatment and training to promote independence in ADL's, mobility, safety and/or upper extremity function for ADL's. Plan of Care: ADL Retraining, Functional Mobility, Group Exercise/Act as Ind, UE Funct Exercise/Act Treatment Duration: Oct 16, 2021 Frequency: At least 5 of 7 days/Wk (IRF) Estimated Hrs Per Day: 1.5 hours per day Rehab Potential: Fair Time/GCodes Start Time: 10:30 Stop Time: 11:30 Total Time Billed (hr/min): 60 Billed Treatment Time 1 Visit, FA 3 (45'), EX (15') LIZANDRO HAM OT Sep 30, 2021 11:02
--- NOTE | 2021-09-30 13:19 | PM&R Progress Note ---
Subjective HPI/CC On Admission Date Seen by Provider: Sep 30, 2021 Subjective/Events-last exam 09/29/2021: Patient doing well Took a shower today Elbows look good DC the fluid restriction and doing well Wants to go to [place] swing bed 09/28/2021: Patient seems to be doing well Improving every day Updated Concerned about his appetite Supportive care will continue 09/27/2021: Patient improving by the day Daughter at the bedside Pressure ulcers are not even stage I placed Allevyn for preventive bilateral elbows and right leg Labs due tomorrow 09/26/2021: Dramatic improvement at bedside Participating in therapy We will monitor closely 09/25/2021: Patient doing well Less confusion Continues with therapy Bowels are moving No urinary issues 09/24/2021: Patient doing pretty well Bowels moved Sodium 138 so we will hold sodium chloride tablets and urea Fluid restriction will be increased to 1800 Bilateral foot pain reported bit unreliable details when he describes it Check meds and labs Objective Exam Vital Signs Vital Signs Date Time Temp Pulse Resp B/P (MAP) Pulse Ox O2 Delivery O2 Flow Rate FiO2 09/30/21 15:13 37.0 77 18 124/58 91 Room Air Capillary Refill : General Appearance: No Apparent Distress, WD/WN, Chronically ill HEENT: PERRL/EOMI, Normal ENT Inspection, Pharynx Normal Neck: Full Range of Motion, Normal Inspection, Non Tender, Supple, Carotid Bruit Respiratory: Chest Non Tender, Lungs Clear, Normal Breath Sounds, No Accessory Muscle Use, No Respiratory Distress Cardiovascular: Regular Rate, Rhythm, No Edema, No Gallop, No JVD, No Murmur, Normal Peripheral Pulses Gastrointestinal: Normal Bowel Sounds, No Organomegaly, No Pulsatile Mass, Non Tender, Soft Back: Normal Inspection, No CVA Tenderness, No Vertebral Tenderness Extremity: Normal Capillary Refill, Normal Inspection, Normal Range of Motion, Non Tender, No Calf Tenderness, No Pedal Edema Neurologic/Psychiatric: Alert, No Motor/Sensory Deficits, Abnormal Gait, Depressed Affect, Motor Weakness, Sensory Deficit Skin: Normal Color, Warm/Dry Lymphatic: No Adenopathy Results/Procedures Lab Patient resulted labs reviewed. FIM Transfers Therapy Code Descriptions/Definitions Functional [place] Measure: 0=Not Assessed/NA 4=Minimal Assistance 1=Total Assistance 5=Supervision or Setup 2=Maximal Assistance 6=Modified [place] 3=Moderate Assistance 7=Complete IndependenceSCALE: Activities may be completed with or without assistive devices. 4-Mnzdkxaypy-qukrfov completes the activity by him/herself with no assistance from a helper. 5-Set-up or Clean-up Assistance-helper sets up or cleans up; patient completes activity. [place] assists only prior to or following the activity. 4-Supervision or Touching Assistance-helper provides verbal cues and/or touching/steadying and/or contact guard assistance as patient completes activity. Assistance may be provided throughout the activity or intermittently. 3-Partial/Moderate Assistance-helper does LESS THAN HALF the effort. [place] lifts, holds or supports trunk or limbs, but provides less than half the effort. 2-Substantial/Maximal Assistance-helper does MORE THAN HALF the effort. [place] lifts or holds trunk or limbs and provides more than half the effort. 9-Vqwtvlnkn-rnivsg does ALL the effort. Patient does none of the effort to complete the activity. Or, the assistance of 2 or more helpers is required for the patient to complete the activity. If activity was not attempted, code reason: 7-Patient Refused. 9-Not Applicable-not attempted and the patient did not perform the activity before the current illness, exacerbation or injury. 10-Not Attempted due to Environmental Limitations-(lack of equipment, weather restraints, etc.). 88-Not Attempted due to Medical Conditions or Safety Concerns. Roll Left to Right (QC): 5 Sit to Lying (QC): 5 Sit to Stand (QC): 4 Chair/Aez-rm-Rpyge Xfer(QC): 5 Car Transfer (QC): 5 Gait Training Does the Patient Walk?: Yes Distance: 125 x4 Walk 10 feet (QC): 4 Walk 50 ft with 2 Turns(QC): 4 Walk 150 ft (QC): 4 Walking 10ft/uneven surface-QC: 3 Gait Persons Needed: 1 Gait Assistive Device: FWW Wheelchair Training Does the Pt Use a Wheelchair?: No Distance: 150' Wheel 50 ft with 2 turns (QC): 4 Wheel 150 ft (QC): 4 Type of Wheelchair: Manual Stair Training Stair Training: Handrails/: 2 handrails #of Steps: 8 1 Step (curb) (QC): 4 4 Steps (QC): 4 12 Steps (QC): 7 Stairs: Pattern: Reciprocal Balance Picking up an Object (QC): 88 ADL-Treatment Eating (QC): 6 (Pt performs IND, per pt report. ) Oral Hygiene (QC): 4 (Pt requires CGA while standing sink side for balance and safety. ) Shower/Bathe Self (QC): 3 (Pt requires Min assist when standing for balance to wash periarea and buttocks. ) Upper Body Dressing (QC): 5 (Pt required set up for task while seated in w/c.) Lower Body Dressing (QC): 4 (Pt requires CGA for task, utilizing boom crane operator. ) On/Off Footwear (QC): 4 (Pt required SBA for task, utilizing sock aide and boom crane operator. Min verbal cues. ) Toileting Hygiene (QC): 4 (CGA when standing for pant hike, able to manage hygiene.) Assessment/Plan Assessment and Plan Assess & Plan/Chief Complaint Assessment: 1. 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 CAD 4. HTN 5. Essential tremor 6. Alcohol use disorder 7. RLE cellulitis 8. Hypercalcemia 10.8 9. Anemia Plan: Fluid restriction Sodium supplementation Supportive care Inpatient rehab protocol 09/24/2021: Increase fluid intake relaxing restriction Stop sodium chloride tablets and urea 09/25/2021: Close monitoring of sodium Supportive care 09/26/2021: Dramatic improvement Continue aggressive therapy 09/27/2021: Fluid restriction Supportive care 09/28/2021: DC fluid restriction Continue aggressive therapy 09/29/2021: Much improved status Discharge plan to [facility] (1) Encephalopathy SUSAN MITCHELL DO Sep 30, 2021 13:19
--- NOTE | 2021-09-30 13:44 | Occupational Ther Daily Note ---
OT Current Status-Daily Note Subjective Pt was lying supine in bed upon OT/PT arrival. Pt stated he wanted to participated in tx session this date. Mental Status/Objective Patient Orientation: Person, Place, Time, Situation ADL-Treatment Therapy Code Descriptions/Definitions Functional [place] Measure: 0=Not Assessed/NA 4=Minimal Assistance 1=Total Assistance 5=Supervision or Setup 2=Maximal Assistance 6=Modified [place] 3=Moderate Assistance 7=Complete IndependenceSCALE: Activities may be completed with or without assistive devices. 6-Wgijutsvwn-rjcpydv completes the activity by him/herself with no assistance from a helper. 5-Set-up or Clean-up Assistance-helper sets up or cleans up; patient completes activity. [place] assists only prior to or following the activity. 4-Supervision or Touching Assistance-helper provides verbal cues and/or touching/steadying and/or contact guard assistance as patient completes activity. Assistance may be provided throughout the activity or intermittently. 3-Partial/Moderate Assistance-helper does LESS THAN HALF the effort. [place] lifts, holds or supports trunk or limbs, but provides less than half the effort. 2-Substantial/Maximal Assistance-helper does MORE THAN HALF the effort. [place] lifts or holds trunk or limbs and provides more than half the effort. 6-Qjhjzcbzb-yexefx does ALL the effort. Patient does none of the effort to complete the activity. Or, the assistance of 2 or more helpers is required for the patient to complete the activity. If activity was not attempted, code reason: 7-Patient Refused. 9-Not Applicable-not attempted and the patient did not perform the activity before the current illness, exacerbation or injury. 10-Not Attempted due to Environmental Limitations-(lack of equipment, weather restraints, etc.). 88-Not Attempted due to Medical Conditions or Safety Concerns. Other Treatment OT/PT [place] due to skill of 2 clinicians required which a restorative rehab aide could not perform in order to coordinate UE/LEs, decrease fall risk, and due to pt's limitations in standing balance, transfers/mobility, problem solving, sequencing, and safety awareness. OT focused on UE placement, cues for sequencing and safety and ADLs, PT focused on LE placement, gross overall movements, and transfers/mobility. Pt performed bed mobility from supine to EOB, SBA. Pt transferred sit to stand w/ FWW, CGA for safety. Pt performed functional mobility w/ FWW to therapy kitchen area at [facility], then took a seated rest break. Pt participated x2 rounds of retrieving cone activity, 6/6 cones, seated rest break after each round, to support standing balance, twisting, reaching, bending, ROM, FMC, finger dexterity for IADL function and skill, required several VC's for visual scanning and thoroughness to bring task to completion. Pt was taken back to room via w/c. Pt transferred from w/c to bed, [facility]. Pt performed bed mobility from EOB to supine, SBA. Pt required skilled VC's throughout entire tx session for hand placement with transfers, bed mobility, and task modifications due to pain in R shoulder. Post tx session, pt was lying supine in bed, call light within reach, and all needs met. Education OT Patient Education: Correct positioning, Energy conservation, Progress toward Goal/Update tx plan, Purpose of tx/functional activities, Transfer techniques Teaching Recipient: Patient Teaching Methods: Discussion Response to Teaching: Verbalize Understanding, Reinforcement Needed OT Short Term Goals Short Term Goals Time Frame: Oct 07, 2021 Oral hygiene: 5 Shower/bathe self: 4 Lower body dressin OT Shelter Goals Lead Database Administrator Goals Time Frame: Oct 16, 2021 Eating (QC): 6 (met) Oral Hygiene (QC): 6 (not met, CGA) Toileting Hygiene (QC): 6 (not met, CGA) Shower/Bathe Self (QC): 4 (not met, min A) Upper Body Dressing (QC): 5 (met) Lower Body Dressing (QC): 4 (met) On/Off Footwear (QC): 4 (met) Additional Goals: 1-Demonstrate ADL Tasks, 2-Verbalize Understanding, 3-ImproveStrength/Johnathan 1=Demonstrate adherence to instructed precautions during ADL tasks. 2=Patient will verbalize/demonstrate understanding of assistive devices/modifications for ADL. 3=Patient will improve strength/tolerance for activity to enable patient to perform ADL's. OT Education/Plan Problem List/Assessment Assessment: Decreased Activ Tolerance, Decreased Safety Aware, Decreased UE Strength, Impaired Cognition, Impaired Coordination, Impaired Funct Balance, Impaired I ADL's, Impaired Self-Care Skills, Restricted Funct UE ROM Discharge Recommendations Plan/Recommendations: Continue POC Treatment Plan/Plan of Care Patient would benefit from OT for education, treatment and training to promote independence in ADL's, mobility, safety and/or upper extremity function for ADL's. Plan of Care: ADL Retraining, Functional Mobility, Group Exercise/Act as Ind, UE Funct Exercise/Act Treatment Duration: Oct 16, 2021 Frequency: At least 5 of 7 days/Wk (IRF) Estimated Hrs Per Day: 1.5 hours per day Rehab Potential: Fair Time/GCodes Start Time: 13:00 Stop Time: 13:30 Total Time Billed (hr/min): 30 Billed Treatment Time [place] OT/PT 13:00-13:30 1 Visit, FA 2 LIZANDRO HAM OT Sep 30, 2021 13:44
--- NOTE | 2021-09-30 13:47 | Physical Therapy Daily Note ---
PT Daily Note-Current Subjective Pt laying Supine in bed upon arrival. Pt agrees to PT/OT co-treat. Pain Location Body Site: Back Pain Description: Ache Comment: Pt reports but doesn't rate back & shoulder pain. Mental Status Patient Orientation: Person, Confused, Place Transfers SCALE: Activities may be completed with or without assistive devices. 3-Sykeacrldc-wjaamkz completes the activity by him/herself with no assistance from a helper. 5-Set-up or Clean-up Assistance-helper sets up or cleans up; patient completes activity. [place] assists only prior to or following the activity. 4-Supervision or Touching Assistance-helper provides verbal cues and/or touching/steadying and/or contact guard assistance as patient completes activity. Assistance may be provided throughout the activity or intermittently. 3-Partial/Moderate Assistance-helper does LESS THAN HALF the effort. [place] lifts, holds or supports trunk or limbs, but provides less than half the effort. 2-Substantial/Maximal Assistance-helper does MORE THAN HALF the effort. [place] lifts or holds trunk or limbs and provides more than half the effort. 6-Lnqshqwfj-efrtea does ALL the effort. Patient does none of the effort to c omplete the activity. Or, the assistance of 2 or more helpers is required for the patient to complete the activity. If activity was not attempted, code reason: 7-Patient Refused. 9-Not Applicable-not attempted and the patient did not perform the activity before the current illness, exacerbation or injury. 10-Not Attempted due to Environmental Limitations-(lack of equipment, weather restraints, etc.). 88-Not Attempted due to Medical Conditions or Safety Concerns. Sit to Lying (QC): 5 Sit to Stand (QC): 4 Weight Bearing Full Weight Bearing Full Weight Bearing Gait Training Does the Patient Walk?: Yes Distance: 100' Walk 10 feet (QC): 4 Walk 50 ft with 2 Turns(QC): 4 Gait Persons Needed: 1 Gait Assistive Device: FWW Treatments [place] OT/PT 13:00-13:30: Pt was lying supine in bed upon OT/PT arrival. Pt stated he wanted to participate in tx session. Due to skill of 2 clinicians required which a rehabilitation team lead could not perform in order to coordinate UE/LEs, decrease fall risk, and due to pt's limitations in standing balance, transfers /mobility, problem solving, sequencing, and safety awareness. OT focused on UE placement, cues for sequencing and safety and ADLs, PT focused on LE placement, gross overall movements, and transfers/mobility. Pt performed bed mobility from supine to EOB, SBA. Pt transferred sit to stand w/ FWW, CGA for safety. Pt performed functional mobility w/ FWW to therapy kitchen area at [facility], then took a seated rest break. Pt participated x2 rounds of retrieving cone activity, 6/6 cones, seated rest break after each round, to support standing balance, twisting, reaching, bending, ROM, FMC, finger dexterity for IADL function and skill, required several VC's for visual scanning and thoroughness to bring task to completion. Pt was taken back to room. Pt transferred from w/c to bed, [facility]. Pt performed bed mobility from EOB to supine, SBA. Pt required skilled VC's throughout entire tx session for hand placement. Post tx session, pt was lying supine in bed, call light within reach, and all needs met. Assessment Current Status: Fair Progress Pt continues to demonstrate lack of safety awareness and increased fall risk due to lack of balance at this time. PT Short Term Goals Short Term Goals Time Frame: Sep 30, 2021 Roll Left & Right: 4 Sit to lyin (Balaji) Lying to sitting on side of be: 3 (Balaji) Sit to stand: 3 (Mando) Chair/lbt-md-ncgih transfer: 3 (Balaji) Walk 10 feet: 3 (mnA) PT Residential Goals Residential Goals PT Stamp Mounter Goals Time Frame: Oct 14, 2021 Roll Left & Right (QC): 6 Sit to Lying (QC): 4 (SBA) Lying-Sitting on Side/Bed(QC): 4 (SBA) Sit to Stand (QC): 4 (CGA) Chair/Vej-lx-Rhjdm Xfer(QC): 4 (CGA) Toilet Transfer (QC): 4 (CGA) Car Transfer (QC): 3 (Balaji) Does the Patient Walk: Yes Walk 10 feet (QC): 4 (CGA) Walk 50ft with 2 Turns (QC): 4 (CGA) Walk 150 ft (QC): 4 (CGA) Walking 10ft on Uneven Surface: 3 (Balaji) 1 Step (curb) (QC): 3 (Balaji) 4 Steps (QC): 3 (Balaji) 12 Steps (QC): 88 Picking up an Object (QC): 3 (Balaji) Wheel 50 feet with 2 turns (QC: 6 Wheel 150 feet: 6 PT Plan Problem List Problem List: Activity Tolerance, Safety, Balance Treatment/Plan Treatment Plan: Continue Plan of Care Treatment Plan: Bed Mobility, Education, Functional Activity Johnathan, Functional Strength, Group Therapy, Gait, Safety, Therapeutic Exercise, Transfers Treatment Duration: Oct 14, 2021 Frequency: At least 5 of 7 days/Wk (IRF) Estimated Hrs Per Day: 1.5 hours per day Patient and/or Family Agrees t: Yes Safety Risks/Education Patient Education: Transfer Techniques, Correct Positioning, Safety Issues Teaching Recipient: Patient Teaching Methods: Demonstration, Discussion Response to Teaching: Reinforcement Needed Time/GCodes Time In: 1300 Time Out: 1330 Total Billed Treatment Time: 30 Total Billed Treatment Co-treat w/OT for 30m 1, GT (15m) & FA (15m) DAVIDE HAWLEY MEDICARE COORDINATOR Sep 30, 2021 13:47
--- NOTE | 2021-09-30 14:53 | Therapy Team Discharge Summary ---
Therapy Discharge Summary Discharge Recommendations Date of Discharge Physical Therapy Patient came to rehab with acute encephalopathy due to viral meningitis. Upon evaluation patient performed rolling with min assist, supine <-> sit and transfers mod assist, car transfer mod assist, ambulated 6' in the parallel bars with min assist, and propelled a manual WC 150' with min assist. Patient has been performing bed mobility and transfer training, balance and endurance training, functional strengthening, stair training, gait training, and education. 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 Now, patient performs rolling and supine <-> sit with SBA, sit <-> stand and transfers with SBA, car transfer SBA, ambulates 150' with a rolling walker with CGA (including 50' with at least 2 turns of 90 degrees but needs min assist for 10' over an uneven surface), and can go up and down 8 steps using 2 handrails with CGA. Patient is being discharged from this facility today and will be discharged from PT at this time. Occupational Therapy Decreased Activ Tolerance, Decreased UE Strength, Impaired Cognition, Impaired Coordination, Impaired Funct Balance, Impaired I ADL's, Impaired Self-Care Skills, Restricted Funct UE ROM PT Usp Goals Care Information Associate Goals PT Usp Goals Time Frame: Oct 14, 2021 Roll Left to Right (QC): 6 Sit to Lying (QC): 4 (SBA) Lying-Sitting on Side/Bed(QC): 4 (SBA) Sit to Stand (QC): 4 (CGA) Chair/Cpq-aq-Rertv Xfer(QC): 4 (CGA) Car Transfer (QC): 3 (Balaji) Does the Patient Walk: Yes Walk 10 feet (QC): 4 (CGA) Walk 10ft-Uneven Surface(QC): 3 (Balaji) Walk 50ft with 2 Turns (QC): 4 (CGA) Walk 150 ft (QC): 4 (CGA) Wheel 50 feet with 2 turns (QC: 6 1 Step (curb) (QC): 3 (Balaji) 4 Steps (QC): 3 (Balaji) 12 Steps (QC): 88 Picking up an Object (QC): 3 (Balaji) OT Usp Goals Usp Goals Time Frame: Oct 16, 2021 Eating (QC): 6 (met) Oral Hygiene (QC): 6 (not met, CGA) Shower/Bathe Self (QC): 4 (not met, min A) Upper Body Dressing (QC): 5 (met) Lower Body Dressing (QC): 4 (met) On/Off Footwear (QC): 4 (met) Toileting Hygiene (QC): 6 (not met, CGA) Toilet/Commode Transfer (QC): 4 (CGA) Additional Goals: 1-Demonstrate ADL Tasks, 2-Verbalize Understanding, 3- ImproveStrength/Johnathan 1=Demonstrate adherence to instructed precautions during ADL tasks. 2=Patient will verbalize/demonstrate understanding of assistive devices/modifications for ADL. 3=Patient will improve strength/tolerance for activity to enable patient to perform ADL's. Speech Care Information Associate Goals Care Information Associate Goals The patient will improve functional abilities in order to be safe and independent in his living environment. SANFORD ALEJANDRE PT Sep 30, 2021 14:53
--- NOTE | 2021-09-30 15:04 | Speech Therapy Daily Note ---
Speech Daily Progress Note Subjective Date Seen by Provider: Sep 30, 2021 Time Seen by Provider: 00:20 Patient is excited about his discharge today to his [facility]. Objective Patient answered a series of questions related to his discharge and plans on returning to his home with 85-90% with minimal cues. Assessment Assessment Current Status: Good Progress Treatment Plan Discontinue ST Speech Short Term Goals Short Term Goals Short Term Goals 1) Patient will complete memory tasks related to his daily needs at 80% or greater with minimal cues. 2) Patient will complete safety awareness tasks related to his daily needs at 80% or greater with minimal cues. 3) Patient will complete problem solving tasks related to his daily needs at 80% or greater with minimal cues. Speech Custodial Goals Eye Physician Goals The patient will improve functional abilities in order to be safe and independent in his living environment. Speech-Plan Patient/Family Goals Patient/Family Goals: Patient is discharging this date to his [facility] to continue therapy and medical care as needed. Treatment Plan Speech Therapy Treatment Plan: Discontinue ST Treatment Duration: Sep 30, 2021 Frequency: 5 times per week Estimated Hrs Per Day: .5 hour per day Rehab Potential: Fair Barriers to Learning: Patient's recent medical issues and related cognitive deficit Pt/Family Agrees to Plan: Yes Safety Risks/Education Teaching Recipient: Patient, Significant Other Teaching Methods: Demonstration, Discussion Response to Teaching: Verbalize Understanding, Return Demonstration Education Topics Provided: Continued safety upon his discharge Time Speech Therapy Time In: 14:30 Speech Therapy Time Out: 14:50 Total Billed Time: 20 Billed Treatment Time 1, SHAKA Novak Sep 30, 2021 15:04
[2021-09-30 15:13] VITALS: BP 124/58
--- NOTE | 2021-09-30 15:34 | Therapy Team Discharge Summary ---
Therapy Discharge Summary Discharge Recommendations Date of Discharge Sep 30, 2021 at 15:19 Occupational Therapy Pt admitted to ARU s/p acute encephalopathy. 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 Upon initial evaluation, pt required set up assistance with eating, SBA oral care, max A showering, supervision UE dressing, min A LE dressing, mod A footwear and min A toileting. OT tx focused on increasing safety and independence with ADLs and functional mobility, increasing BUE strength and activity tolerance, and education on AE for LE dressing. At discharge, pt was independent with eating, required CGA with oral care, min A showering, set up upper body dressing, CGA lower body dressing, SBA footwear and CGA toileting. Pt made functional progress towards goals, meeting LTGs for eating, upper/lower body dressing, footwear and toileting. He did not meet LTGs for oral care and showering. Pt discharged from this facility to B at another facility, d/c from OT at this time. Decreased Activ Tolerance, Decreased UE Strength, Impaired Cognition, Impaired Coordination, Impaired Funct Balance, Impaired I ADL's, Impaired Self-Care S kills, Restricted Funct UE ROM PT Intermediate Goals Intermediate Goals PT Intermediate Goals Time Frame: Oct 14, 2021 Roll Left to Right (QC): 6 Sit to Lying (QC): 4 (SBA) Lying-Sitting on Side/Bed(QC): 4 (SBA) Sit to Stand (QC): 4 (CGA) Chair/Bei-hp-Xfsbo Xfer(QC): 4 (CGA) Car Transfer (QC): 3 (Balaji) Does the Patient Walk: Yes Walk 10 feet (QC): 4 (CGA) Walk 10ft-Uneven Surface(QC): 3 (Balaji) Walk 50ft with 2 Turns (QC): 4 (CGA) Walk 150 ft (QC): 4 (CGA) Wheel 50 feet with 2 turns (QC: 6 1 Step (curb) (QC): 3 (Balaji) 4 Steps (QC): 3 (Balaji) 12 Steps (QC): 88 Picking up an Object (QC): 3 (Balaji) OT Veneer Sheet Repairer Goals Intermediate Goals Time Frame: Oct 16, 2021 Eating (QC): 6 (met) Oral Hygiene (QC): 6 (not met, CGA) Shower/Bathe Self (QC): 4 (not met, min A) Upper Body Dressing (QC): 5 (met) Lower Body Dressing (QC): 4 (met) On/Off Footwear (QC): 4 (met) Toileting Hygiene (QC): 6 (not met, CGA) Toilet/Commode Transfer (QC): 4 (CGA) Additional Goals: 1-Demonstrate ADL Tasks, 2-Verbalize Understanding, 3- ImproveStrength/Johnathan 1=Demonstrate adherence to instructed precautions during ADL tasks. 2=Patient will verbalize/demonstrate understanding of assistive devices/modifications for ADL. 3=Patient will improve strength/tolerance for activity to enable patient to perform ADL's. Speech Veneer Sheet Repairer Goals Intermediate Goals The patient will improve functional abilities in order to be safe and independent in his living environment. LIZANDRO HAM OT Sep 30, 2021 15:34
== END 2021-09-30 15:19 | disposition swing bed (61) | DRG 71 ==
PROVIDERS: ADMIT Internal Medicine; ATTEND Internal Medicine
DX: G93.49 Other encephalopathy (principal); A85.8 Other specified viral encephalitis; E22.2 Syndrome of inappropriate secretion of antidiuretic hormone; L03.115 Cellulitis of right lower limb; I25.10 Atherosclerotic heart disease of native coronary artery without angina pectoris; E83.52 Hypercalcemia; Z72.89 Other problems related to lifestyle; D64.9 Anemia, unspecified; I10 Essential (primary) hypertension; G25.0 Essential tremor; M54.50 Low back pain, unspecified; Z98.1 Arthrodesis status; Z95.5 Presence of coronary angioplasty implant and graft
CPT/HCPCS: 36415; 80053; 85025